=== PATIENT | male | born 1970 | race Caucasian/White ===

== ENCOUNTER 2021-04-12 16:56 | Inpatient (IN) ==
--- NOTE | 2021-04-12 17:50 | Emergency Department Note ---
Impression & Plan Bipolar 1 disorder, Depression with suicidal ideation ED Provider Note Provider: Felipe Luong MD DATE OF SERVICE: 04/12/2021 CHIEF COMPLAINT: Suicidal thoughts, bipolar HISTORY OF PRESENT ILLNESS: Patient is a 50-year-old gentleman history of some left knee arthritis is also history of bipolar presenting here with girlfriend today reporting worsening mental health issues. Patient states over the past several weeks he had several family members from Covid in [place] as well as being ill. Patient states it is very stressful for him and over the past approximately 5 days he has been having some thoughts of wanting to harm himself and kill himself. Reports that he is having thoughts of putting a garden hose in the tailpipe of his car and then getting in the car to fixate himself. Reports a history of 2 prior suicide attempt by slashing his wrists in the past. Prior inpatient hospitalizations in [place]. Reports he moved here about 2 years ago and has not had psychiatric providers in this area. Has been off his medication since July and doing okay until more recent stresses the last several weeks. States has not been sleeping well but did have some old Zyprexa at home the used to be on any type to help a little bit. Patient states he been arguing with others but not physically denying having thoughts of hurting others. Patient states he is willing for inpatient treatment and that is why he is here. Patient states he did have some old Zoloft 50 mg has been taking for the last several days and may be its helped with his anxiety a little bit. Patient states he is a daily cannabis user and chews tobacco. REVIEW OF SYSTEMS: A total of 10 review of systems was obtained and negative except as stated above in the HPI. 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 NECK: Trachea midline. Supple. ENT: Mucous membranes pink and moist. LUNGS: Airway patent. No retractions. Breath sounds clear HEART: Regular rate and rhythm. SKIN: Acyanotic, warm, dry, without rashes EXTREMITIES: Without swelling, tenderness or deformity NEUROLOGICAL: No focal deficits. No aphasia. No facial droop or slurred speech. Ambulatory. Psych: Reports depression and anxiety with suicidal ideations. Reports minimal sleep. Patient does not appear tangential at this time. Denies any HI but has been getting to fights with more people. Not responding to external stimuli. Flattened affect. Patient's laboratory studies reviewed. Differential includes Mood disorder, infection, hypoglycemia, electrolyte abnormalities, cardiac sources, intracerebral event, toxicologic, trauma, neurologic, as well as other pathologies. IMPRESSION/MEDICAL DECISION MAKING: Patient with depression anxiety and bipolar history now with thoughts of wanting to harm self through car monoxide poisoning. Basic labs completed here. Seen with case making machine operator. Patient wishes for voluntary inpatient treatment to believe is reasonable. No severe electrolyte abnormality or signs of lab abnormality beyond a mild nonspecific leukocytosis. Do not see any significant infectious source. Patient does appear meningitic. Patient I believe would benefit from inpatient treatment and referrals were made. Patient excepted 3 S. for further care on a voluntary basis. DIAGNOSIS: Depression with suicidal ideation, bipolar DISPOSITION: Further inpatient psychiatric care on 3 S. Past Med/Surg History Medical History (Updated 04/12/21 @ 22:25 by Felipe Luong M.D.) Anxiety Depression Other and unspecified hyperlipidemia Pre-diabetes Vitamin D deficiency, unspecified Surgical History S/P tonsillectomy Family History Denies family history of Ovarian cancer Prostate cancer Diabetes Myocardial infarction Breast cancer Colorectal cancer Cancer Stroke Social History Smoking Status: Current every day smoker Tobacco Type: Cigarettes Age Started Using Tobacco: 22; packs per day: 0.5; Cigarettes Per Day: 10; Second Hand Exposure: No; Hx Alcohol Use: No Hx Substance Use: No Preferred Language: Portuguese Communication Ability: Effective Visual Impairment: No Limitations Hearing Ability: Normal Beliefs That Will Affect Care: None marital status: Single current occupational status: employed 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 [employer] Feels Safe at Home: Yes Childhood Exposure to Second-Hand Smoke: Yes Dental Care, Regularly: No Physical Activity Frequency: Does not Exercise Seatbelt Use: always Assistive Devices: None Allergies Allergies Allergy/AdvReac Type Severity Reaction Status Date / Time No Known Allergies Allergy Verified 04/12/21 21:11 Home Meds Previous Rx's Medication Instructions Recorded buspirone 15 mg tablet 15 mg PO BID #180 tab 03/17/20 sertraline 100 mg tablet 100 mg PO DAILY #90 tab 03/17/20 aspirin 81 mg tablet,delayed 81 mg PO DAILY #90 tab 03/26/20 release coenzyme Q10 100 mg capsule 200 mg PO DAILY #180 cap 03/26/20 (CoQ-10) ergocalciferol (vitamin D2) 1,250 50,000 unit PO .weekly #12 cap 03/26/20 mcg (50,000 unit) capsule celecoxib 200 mg capsule 200 mg PO DAILY 90 Days #90 cap 04/17/20 diclofenac sodium 1 % topical gel 4 g TOPICAL QID #100 g 04/17/20 (Voltaren) levocetirizine 5 mg tablet (Xyzal) 5 mg PO DAILY #90 tab 04/17/20 lisinopril 5 mg tablet 5 mg PO .QHS #90 tab 04/17/20 lurasidone 40 mg tablet (Latuda) 40 mg PO DAILY #90 tab 04/17/20 prazosin 5 mg capsule (Minipress) 5 mg PO .QHS #90 cap 04/17/20 rosuvastatin 40 mg tablet (Crestor) 40 mg PO .QHS #90 tab 04/17/20 Results & Data (ED) Vital Signs Vital Signs - 24 hr 04/12/21 17:00 04/12/21 21:20 Temperature 36.2 C L Temperature Source Oral Pulse Rate 117 H Pulse Rate [Left] 70 Pulse Rhythm Regular Pulse Rhythm [Left] Regular Pulse Strength Normal Pulse Strength [Left] Normal Respiratory Rate 22 19 Respiratory Effort / Characteristics Non-Labored Respiratory Depth Normal Respiratory Pattern Regular Blood Pressure 138/93 Blood Pressure [Left Arm] 158/101 H Blood Pressure Mean 108 Blood Pressure Mean [Left Arm] 120 Blood Pressure Position Sitting Blood Pressure Position [Left Arm] Sitting Pulse Oximetry 94 96 Oxygen Delivery Method Room Air Room Air Sepsis Recent Fever Within 48 Hours No Sepsis New/Unexplained Change in Mental Status No Sepsis Action Taken by Nursing No Action Required Laboratory Data Result diagrams: 04/12/21 18:04 04/12/21 18:04 Lab Results 04/12/21 04/12/21 04/12/21 Range/Units 18:04 18:04 18:04 WBC 12.96 H (4.8-10.8) K/uL RBC 5.02 (4.7-6.1) M/uL Hgb 16.4 (14.0-18.0) g/dL Hct 46.8 (42-52) % MCV 93.2 (80-100) fL MCH 32.7 (25-34) pg MCHC 35.0 (32-36) g/dL RDW Std Deviation 46.5 H (36.4-46.3) fL RDW Coeff of [place] 13.7 (11.5-14.5) % Plt Count 309 (130-400) K/uL MPV 11.8 H (7.4-10.4) fL Immature Gran % (Auto) 0.2 % Neut % (Auto) 65.0 % Lymph % (Auto) 26.6 % [place] % (Auto) 6.7 % Eos % (Auto) 1.3 % Baso % (Auto) 0.2 % Neut # (Auto) 8.41 H (1.4-6.5) K/uL Lymph # (Auto) 3.45 H (1.2-3.4) K/uL [place] # (Auto) 0.87 H (0.11-0.59) K/uL Eos # (Auto) 0.17 (0-0.5) K/uL Baso # (Auto) 0.03 (0-0.2) K/uL Immature Gran # (Auto) 0.03 H (0.00-0.02) K/uL Sodium 137 (136-145) mmol/L Potassium 3.5 (3.5-5.1) mmol/L Chloride 106 (98-107) mmol/L Carbon Dioxide 24 (21-32) mmol/L Anion Gap 7.0 (3-11) BUN 8 (7-18) mg/dl Creatinine 0.82 (0.6-1.4) mg/dl Est Cr Clr Drug Dosing 153.2 ml/min Est GFR ( Amer) 121.2 ml/min Est GFR (Non-Af Amer) 104.6 ml/min BUN/Creatinine Ratio 9.7 L (10-20) Glucose 98 (70-99) mg/dl Calcium 9.2 (8.5-10.1) mg/dl Total Bilirubin 0.6 (0.2-1) mg/dl AST 30 (15-37) U/L ALT 92 H (12-78) U/L Alkaline Phosphatase 77 (45-117) U/L Total Protein 8.4 H (6.4-8.2) gm/dl Albumin 4.5 (3.4-5.0) gm/dl Globulin 3.9 (2.5-4.0) gm/dl Albumin/Globulin Ratio 1.2 (0.9-2) TSH 0.809 (0.300-4.500) uIu/ml Urine Color Urine Appearance (Clear) Urine pH (4.5-7.5) Ur Specific [place] (1.000-1.030) Urine Protein (Negative) Urine Glucose (UA) (Negative) Urine Ketones (Negative) Urine Blood (Negative) Urine Nitrite (Negative) Urine Bilirubin (Negative) Urine Urobilinogen (Negative) Ur Leukocyte Esterase (Negative) Salicylates 1.8 L (2.8-20) mg/dl Urine Opiates Screen (Neg) Ur Methadone, Qual (Neg) Acetaminophen < 2 L (10-30) ug/ml Urine Barbiturates (Neg) Ur Phencyclidine (PCP) (Neg) U Amphetamin/Meth Scrn (Neg) MDMA (Ecstasy) Screen (Neg) U Benzodiazepines Scrn (Neg) Ur Cocaine Metabolite (Neg) U Marijuana (THC) Screen (Neg) Ethyl Alcohol mg/dL (0-3) mg/dl COVID-19 Eval Order SARS-CoV-2 (PCR) (Negative) 04/12/21 04/12/21 04/12/21 Range/Units 18:04 18:12 18:12 WBC (4.8-10.8) K/uL RBC (4.7-6.1) M/uL Hgb (14.0-18.0) g/dL Hct (42-52) % MCV (80-100) fL MCH (25-34) pg MCHC (32-36) g/dL RDW Std Deviation (36.4-46.3) fL RDW Coeff of [place] (11.5-14.5) % Plt Count (130-400) K/uL MPV (7.4-10.4) fL Immature Gran % (Auto) % Neut % (Auto) % Lymph % (Auto) % [place] % (Auto) % Eos % (Auto) % Baso % (Auto) % Neut # (Auto) (1.4-6.5) K/uL Lymph # (Auto) (1.2-3.4) K/uL [place] # (Auto) (0.11-0.59) K/uL Eos # (Auto) (0-0.5) K/uL Baso # (Auto) (0-0.2) K/uL Immature Gran # (Auto) (0.00-0.02) K/uL Sodium (136-145) mmol/L Potassium (3.5-5.1) mmol/L Chloride (98-107) mmol/L Carbon Dioxide (21-32) mmol/L Anion Gap (3-11) BUN (7-18) mg/dl Creatinine (0.6-1.4) mg/dl Est Cr Clr Drug Dosing ml/min Est GFR ( Amer) ml/min Est GFR (Non-Af Amer) ml/min BUN/Creatinine Ratio (10-20) Glucose (70-99) mg/dl Calcium (8.5-10.1) mg/dl Total Bilirubin (0.2-1) mg/dl AST (15-37) U/L ALT (12-78) U/L Alkaline Phosphatase (45-117) U/L Total Protein (6.4-8.2) gm/dl Albumin (3.4-5.0) gm/dl Globulin (2.5-4.0) gm/dl Albumin/Globulin Ratio (0.9-2) TSH (0.300-4.500) uIu/ml Urine Color Urine Appearance (Clear) Urine pH (4.5-7.5) Ur Specific [place] (1.000-1.030) Urine Protein (Negative) Urine Glucose (UA) (Negative) Urine Ketones (Negative) Urine Blood (Negative) Urine Nitrite (Negative) Urine Bilirubin (Negative) Urine Urobilinogen (Negative) Ur Leukocyte Esterase (Negative) Salicylates (2.8-20) mg/dl Urine Opiates Screen (Neg) Ur Methadone, Qual (Neg) Acetaminophen (10-30) ug/ml Urine Barbiturates (Neg) Ur Phencyclidine (PCP) (Neg) U Amphetamin/Meth Scrn (Neg) MDMA (Ecstasy) Screen (Neg) U Benzodiazepines Scrn (Neg) Ur Cocaine Metabolite (Neg) U Marijuana (THC) Screen (Neg) Ethyl Alcohol mg/dL < 3.0 (0-3) mg/dl COVID-19 Eval Order Covid19 at [facility] SARS-CoV-2 (PCR) NEGATIVE (Negative) 04/12/21 04/12/21 Range/Units 19:29 19:29 WBC (4.8-10.8) K/uL RBC (4.7-6.1) M/uL Hgb (14.0-18.0) g/dL Hct (42-52) % MCV (80-100) fL MCH (25-34) pg MCHC (32-36) g/dL RDW Std Deviation (36.4-46.3) fL RDW Coeff of [place] (11.5-14.5) % Plt Count (130-400) K/uL MPV (7.4-10.4) fL Immature Gran % (Auto) % Neut % (Auto) % Lymph % (Auto) % [place] % (Auto) % Eos % (Auto) % Baso % (Auto) % Neut # (Auto) (1.4-6.5) K/uL Lymph # (Auto) (1.2-3.4) K/uL [place] # (Auto) (0.11-0.59) K/uL Eos # (Auto) (0-0.5) K/uL Baso # (Auto) (0-0.2) K/uL Immature Gran # (Auto) (0.00-0.02) K/uL Sodium (136-145) mmol/L Potassium (3.5-5.1) mmol/L Chloride (98-107) mmol/L Carbon Dioxide (21-32) mmol/L Anion Gap (3-11) BUN (7-18) mg/dl Creatinine (0.6-1.4) mg/dl Est Cr Clr Drug Dosing ml/min Est GFR ( Amer) ml/min Est GFR (Non-Af Amer) ml/min BUN/Creatinine Ratio (10-20) Glucose (70-99) mg/dl Calcium (8.5-10.1) mg/dl Total Bilirubin (0.2-1) mg/dl AST (15-37) U/L ALT (12-78) U/L Alkaline Phosphatase (45-117) U/L Total Protein (6.4-8.2) gm/dl Albumin (3.4-5.0) gm/dl Globulin (2.5-4.0) gm/dl Albumin/Globulin Ratio (0.9-2) TSH (0.300-4.500) uIu/ml Urine Color Yellow Urine Appearance Clear (Clear) Urine pH 6.0 (4.5-7.5) Ur Specific [place] 1.008 (1.000-1.030) Urine Protein Negative (Negative) Urine Glucose (UA) Negative (Negative) Urine Ketones Negative (Negative) Urine Blood Negative (Negative) Urine Nitrite Negative (Negative) Urine Bilirubin Negative (Negative) Urine Urobilinogen Negative (Negative) Ur Leukocyte Esterase Negative (Negative) Salicylates (2.8-20) mg/dl Urine Opiates Screen Neg (Neg) Ur Methadone, Qual Neg (Neg) Acetaminophen (10-30) ug/ml Urine Barbiturates Neg (Neg) Ur Phencyclidine (PCP) Neg (Neg) U Amphetamin/Meth Scrn Neg (Neg) MDMA (Ecstasy) Screen Neg (Neg) U Benzodiazepines Scrn Neg (Neg) Ur Cocaine Metabolite Neg (Neg) U Marijuana (THC) Screen Pos H (Neg) Ethyl Alcohol mg/dL (0-3) mg/dl COVID-19 Eval Order SARS-CoV-2 (PCR) (Negative) Administered Medications Acetaminophen (Acetaminophen 325 Mg Tab) 650 mg PO Q4H PRN PRN Reason: Headache or Minor Fever Stop: 05/12/21 21:48 Last Admin: 04/12/21 22:26 Dose: 650 mg Documented by: [id number] Nicotine (Nicotine 21 Mg/24 Hr Tdsy) 21 mg TD QAM DEONTE Stop: 05/12/21 17:59 Last Admin: 04/12/21 21:45 Dose: 21 mg Documented by: [id number] Discontinued Medications Diazepam (Diazepam 5 Mg Tablet) 5 mg PO NOW ONE Stop: 04/12/21 22:15 Last Admin: 04/12/21 22:33 Dose: 5 mg Documented by: [id number] Discharge Plan Visit Data Chief Complaint: Mental Health Evaluation Stated Complaint: SUICIDAL THOUGHTS ED Provider: Felipe Luong Discharge Problem: Bipolar 1 disorder, Depression with suicidal ideation Patient Disposition: Admitted As Inpatient Discharge Instructions Interventions: ED Discharge Assessment Last Done: 04/12/21 22:16
[2021-04-12 18:43] LABS: Basophils # (auto) 0.03 K/uL (0-0.2); Basophils % (auto) 0.2 %; Eosinophils # (auto) 0.17 K/uL (0-0.5); Eosinophils % (auto) 1.3 %; Hematocrit (blood only) 46.8 % (42-52); Hemoglobin 16.4 g/dL (14.0-18.0); Immature Granulocytes # (auto) 0.03 K/uL (0.00-0.02); Immature Granulocytes % (auto) 0.2 %; Lymphocytes # (auto) 3.45 K/uL (1.2-3.4); Lymphocytes % (auto) 26.6 %; Mean Corpuscular Hemoglobin 32.7 pg (25-34); Mean Corpuscular Volume 93.2 fL (80-100); Mean Platelet Volume 11.8 fL (7.4-10.4); Monocytes # (auto) 0.87 K/uL (0.11-0.59); Monocytes % (auto) 6.7 %; Neutrophils # (auto) 8.41 K/uL (1.4-6.5); Platelet Count 309 K/uL (130-400); RDW Coefficient of Variation 13.7 % (11.5-14.5); RDW Standard Deviation 46.5 fL (36.4-46.3); Red Blood Count 5.02 M/uL (4.7-6.1); White Blood Count 12.96 K/uL (4.8-10.8)
[2021-04-12 19:06] LABS: Albumin Level 4.5 gm/dl (3.4-5.0); BUN Creatinine Ratio 9.7 (10-20); Calcium 9.2 mg/dl (8.5-10.1); Creatinine Clr Calc Pharmacy 153.2 ml/min; Est GFR (African American) 121.2 ml/min; Est GFR (Non-African American) 104.6 ml/min; Potassium 3.5 mmol/L (3.5-5.1)
[2021-04-12 19:16] LABS: Albumin Globulin Ratio 1.2 (0.9-2); Bilirubin,Total 0.6 mg/dl (0.2-1); Globulin 3.9 gm/dl (2.5-4.0); Thyroid Stimulating Hormone 0.809 uIu/ml (0.300-4.500); Total Protein 8.4 gm/dl (6.4-8.2)
[2021-04-12 19:30] LABS: Acetaminophen < 2 ug/ml (10-30)
[2021-04-12 19:31] LABS: Salicylate 1.8 mg/dl (2.8-20)
[2021-04-12 20:04] LABS: Appearance Urine Clear (Clear); Bilirubin Urine Negative (Negative); Blood Urine Negative (Negative); Color Urine Yellow; Glucose Urine UA Negative (Negative); Ketones Urine Negative (Negative); Leukocyte Esterase Urine Negative (Negative); Nitrite Urine Negative (Negative); Protein Urine Negative (Negative); Specific Gravity Urine 1.008 (1.000-1.030); Urobilinogen Urine Negative (Negative)
[2021-04-12 20:27] LABS: Amphetamines+Metham, Urine Neg (Neg); Barbiturates, Urine Neg (Neg); Benzodiazepine, Urine Neg (Neg); Cocaine, Urine Neg (Neg); MDMA (Ecstacy), Urine Neg (Neg); Methadone, Urine Neg (Neg); Opiate, Urine Neg (Neg); Phencyclidine, Urine Neg (Neg)
[2021-04-12] MEDS: NICOTINE 21 MG/24 HR TDSY TD SCH (21:45)
[2021-04-12] MEDS ORDERED: hydrOXYzine HCl 25 MG TAB PO PRN (21:49)
[2021-04-12] MEDS ORDERED: SODIUM CHLORIDE 0.65% NA SOLN 45 ML (OCEAN) PRN (21:49)
[2021-04-12] MEDS ORDERED: ALUMINUM/MAGNESIUM SUSP 30 ML UDC PO PRN (21:49)
[2021-04-12] MEDS ORDERED: ACETAMINOPHEN 325 MG TAB PO PRN (21:49)
[2021-04-12] MEDS ORDERED: BISMUTH SUBSALICYLATE LIQD 236 ML PO PRN (21:49)
[2021-04-12] MEDS ORDERED: MAGNESIUM HYDROXIDE SUSP 30 ML UDC PO PRN (21:49)
[2021-04-12] MEDS ORDERED: diazePAM 5 MG TABLET PO ONE (22:14)
[2021-04-12] MEDS ORDERED: NICOTINE POLACRILEX 2 MG GUM MT PRN (22:15)
[2021-04-13] MEDS: NICOTINE 21 MG/24 HR TDSY TD SCH (09:40)
[2021-04-13] MEDS: LURASIDONE HCL 40 MG TAB PO SCH (13:28)
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
[2021-04-13] MEDS: clonazePAM 0.5 MG TAB PO PRN (17:10)
[2021-04-13] MEDS: PRAZOSIN HCL 1 MG CAP PO SCH (20:25)
[2021-04-13] MEDS: hydrOXYzine HCl 25 MG TAB PO PRN (21:48)
[2021-04-14] MEDS: clonazePAM 0.5 MG TAB PO PRN (07:42)
[2021-04-14] MEDS: NICOTINE 21 MG/24 HR TDSY TD SCH (08:49)
[2021-04-14] MEDS ORDERED: LORazepam 1 MG TAB PO STA (08:58)
[2021-04-14] MEDS ORDERED: traMADol HCL 50 MG TABLET PO STA (09:26)
--- NOTE | 2021-04-14 14:53 | Psychiatric Progress Note ---
Date of Service April 14, 2021 Impression / Recommendations Impression This is a 50-year-old male with diagnosis of bipolar disorder and PTSD who presents in what is likely a mixed manic state due to social stressors and medication noncompliance. Patient will benefit from inpatient hospitalization for purposes of safety, stabilization, and medication management. (1) Bipolar 1 disorder: The patient was admitted to the [facility] ([facility] mental health unit) on every 15 minute checks (behavioral with suicide precautions for safety. The patient will participate in group, recreational, and milieu therapies and will be offered additional individual and family sessions as clinically appropriate. 04/13/2021we will restart patient on medications which have worked for him in the past. We will start Latuda 40 mg p.o. every morning, prazosin 1 mg nightly, clonazepam 1 mg as needed anxiety 3 times daily. With plans to start Zoloft in the coming days 04/14/2021we will continue with the current medications for now, patient still getting acclimated to the unit and continues to have a difficult time falling asleep. 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 Review of Systems Sleep Information Total Hours of Sleep: 6.5 Meal Information Percent Meal Consumed - Breakfast: 100 Percent Meal Consumed - Lunch: 100 Percent Meal Consumed - Dinner: 50 Subjective Subjective Patient was seen & assessed and interval progress reviewed with treatment team nursing and social work Patient became agitated this morning due to having interrupted sleep last night in which she was unable to fall back asleep. Due to his level of agitation, staff requested patient receive a stat dose of medication to help him calm down and potentially fall back to sleep. Patient was administered a stat dose of lorazepam to good effect and was resting in his room for the remainder of the day. I spent 30 minutes with the patient, 50% of which was dedicated to counselling and coordination of care. Physical Exam Psychiatric Orientation: alert and oriented x 3 Apperance: appropriately dressed Eye Contact: good eye contact Motor Behavior: no abnormal motor movements Affect: + depressed affect, + anxious affect, + labile affect and mood congruent with affect Mood: + depressed mood and + anxious mood Thought Process: goal directed thought process and + concrete thought process Thought Content: reality based without delusions, + hopelessness, + worthlessness and + self deprecation Suicidal Thoughts: + reports suicidal thoughts Homicidal Thoughts: denies homicidal thoughts Hallucinations: no auditory hallucinations and no visual hallucinations Cognition: attention grossly intact Estimated Intelligence: average estimated intelligence Insight: + fair insight Judgement: + poor judgement Vital Signs (Past 24 Hours) Last Vital Signs Temp 36.4 C L 04/14/21 06:51 Pulse 98 H 04/14/21 06:51 Resp 18 04/14/21 06:51 BP 135/90 04/14/21 06:51 Pulse Ox 98 04/12/21 22:37 Results & Data ([facility]) Current Inpatient Medications Current Inpatient Medications: Current Inpatient Medications Acetaminophen (Acetaminophen 325 Mg Tab) 650 mg PO Q4H PRN PRN Reason: Headache or Minor Fever Stop: 05/12/21 21:48 Last Admin: 04/12/21 22:26 Dose: 650 mg Documented by: Al Hydrox/Mg Hydrox/Simethicone (Aluminum/Magnesium Susp 30 Ml Udc) 30 ml PO Q4H PRN PRN Reason: GI Upset Stop: 05/12/21 21:48 Bismuth Subsalicylate (Bismuth Subsalicylate Liqd 236 Ml) 15 ml PO PRN PRN PRN Reason: Loose Stool Stop: 05/12/21 21:48 Hydroxyzine HCl (Hydroxyzine Hcl 25 Mg Tab) 50 mg PO HSZ PRN PRN Reason: Insomnia Stop: 05/12/21 21:48 Last Admin: 04/13/21 21:48 Dose: 50 mg Documented by: Hydroxyzine HCl (Hydroxyzine Hcl 25 Mg Tab) 25 mg PO Q4H PRN PRN Reason: Anxiety Stop: 05/12/21 21:48 Lurasidone HCl (Lurasidone Hcl 40 Mg Tab) 40 mg PO DAILY [facility] Stop: 05/13/21 11:44 Last Admin: 04/13/21 13:28 Dose: 40 mg Documented by: Magnesium Hydroxide (Magnesium Hydroxide Susp 30 Ml Udc) 30 ml PO DAILY PRN PRN Reason: Constipation Stop: 05/12/21 21:48 Miscellaneous (Remove Nicoderm Patch) 1 ea N/A DAILY@0859 [facility] Stop: 05/13/21 08:58 Last Admin: 04/14/21 08:50 Dose: Not Given Documented by: Nicotine (Nicotine 21 Mg/24 Hr Tdsy) 21 mg TD QAM [facility] Stop: 05/12/21 17:59 Last Admin: 04/14/21 08:49 Dose: 21 mg Documented by: Nicotine Polacrilex (Nicotine Polacrilex 2 Mg Gum) 1 piece MT PRN PRN PRN Reason: Tobacco craving Stop: 05/12/21 22:14 Prazosin HCl (Prazosin Hcl 1 Mg Cap) 1 mg PO HS DEONTE Stop: 05/13/21 21:59 Last Admin: 04/13/21 20:25 Dose: 1 mg Documented by: Sodium Chloride (Sodium Chloride 0.65% Na Soln 45 Ml ([place])) 1 - 2 sprays NA PRN PRN PRN Reason: Nasal Dryness/Congestion Stop: 05/12/21 21:48 Mental Health & Subst Abuse Tx Therapist Name of Therapist: None [employer] Name of [employer] Internship: None Post Discharge Appointments Primary Care Physician Name Of Family Doctor: [facility] Date of Appointment with PCP: 04/24/21 Time of Appointment with PCP: 10:15 a.m. Provider Appointment Comment: [address] [facility] Contact Information Discharge Discharge Address: [address] [place] [address], [place] [id number]
[2021-04-14] MEDS: LURASIDONE HCL 40 MG TAB PO SCH (16:13)
[2021-04-14] MEDS: PRAZOSIN HCL 1 MG CAP PO SCH (21:25)
[2021-04-14] MEDS: clonazePAM 1 MG TAB PO PRN (23:03)
[2021-04-15] MEDS: NICOTINE 21 MG/24 HR TDSY TD SCH (08:12)
[2021-04-15] MEDS: clonazePAM 1 MG TAB PO PRN (09:47)
[2021-04-15] MEDS: LURASIDONE HCL 40 MG TAB PO SCH (09:48)
[2021-04-15] MEDS: NICOTINE POLACRILEX 2 MG GUM MT PRN ×2 (09:52→17:39)
[2021-04-15] MEDS: traMADol HCL 50 MG TABLET PO PRN ×2 (09:53→17:39)
[2021-04-15 10:07] LABS: Marijuana Quant, GCMS Urine 1250 ng/mL (<5)
--- NOTE | 2021-04-15 11:04 | Psychiatric Progress Note ---
Date of Service April 15, 2021 Impression / Recommendations Impression This is a 50-year-old male with diagnosis of bipolar disorder and PTSD who presents in what is likely a mixed manic state due to social stressors and medication noncompliance. Patient will benefit from inpatient hospitalization for purposes of safety, stabilization, and medication management. (1) Bipolar 1 disorder: The patient was admitted to the [facility] ([facility] mental health unit) on every 15 minute checks (behavioral with suicide precautions for safety. The patient will participate in group, recreational, and milieu therapies and will be offered additional individual and family sessions as clinically appropriate. 04/13/2021we will restart patient on medications which have worked for him in the past. We will start Latuda 40 mg p.o. every morning, prazosin 1 mg nightly, clonazepam 1 mg as needed anxiety 3 times daily. With plans to start Zoloft in the coming days 04/14/2021we will continue with the current medications for now, patient still getting acclimated to the unit and continues to have a difficult time falling asleep. 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 Review of Systems Sleep Information Total Hours of Sleep: 6 Meal Information Percent Meal Consumed - Breakfast: 100 Percent Meal Consumed - Lunch: 0 Percent Meal Consumed - Dinner: 100 Nutrition Comment: sleeping Subjective Subjective Patient seen, chart reviewed and case discussed with treatment team, nursing and social work. Patient reports a good night of sleep and strong appetite. No side effects reported or observed. Reports mood has improved after some rest. Regarding mood, patient reports some improvement which they attribute to the medications as well as the therapy they have received on the unit. Today, patient rescinded his 72 hour letter and agreed to stay longer, in line with the recommendations of unit staff and song writer. I spent 30 minutes with the patient, 50% of which was dedicated to counselling and coordination of care. Physical Exam Psychiatric Orientation: alert and oriented x 3 Apperance: appropriately dressed Eye Contact: good eye contact Motor Behavior: no abnormal motor movements Affect: + depressed affect, + anxious affect, + labile affect and mood congruent with affect Mood: + depressed mood and + anxious mood Thought Process: goal directed thought process and + concrete thought process Thought Content: reality based without delusions, + hopelessness, + worthlessness and + self deprecation Suicidal Thoughts: + reports suicidal thoughts Homicidal Thoughts: denies homicidal thoughts Hallucinations: no auditory hallucinations and no visual hallucinations Cognition: attention grossly intact Estimated Intelligence: average estimated intelligence Insight: + fair insight Judgement: + poor judgement Vital Signs (Past 24 Hours) Last Vital Signs Temp 36.6 C 04/15/21 06:31 Pulse 98 H 04/15/21 06:32 Resp 16 04/15/21 06:31 BP 120/81 04/15/21 06:32 Pulse Ox 98 04/12/21 22:37 Results & Data ([facility]) Laboratory Results Laboratory Results - last 24 hr 04/12/21 19:29 U Marijuana THC Carboxy 1250 H Drug Screen Comment SEE NOTE Current Inpatient Medications Current Inpatient Medications: Current Inpatient Medications Acetaminophen (Acetaminophen 325 Mg Tab) 650 mg PO Q4H PRN PRN Reason: Headache or Minor Fever Stop: 05/12/21 21:48 Last Admin: 04/12/21 22:26 Dose: 650 mg Documented by: Al Hydrox/Mg Hydrox/Simethicone (Aluminum/Magnesium Susp 30 Ml Udc) 30 ml PO Q4H PRN PRN Reason: GI Upset Stop: 05/12/21 21:48 Bismuth Subsalicylate (Bismuth Subsalicylate Liqd 236 Ml) 15 ml PO PRN PRN PRN Reason: Loose Stool Stop: 05/12/21 21:48 Clonazepam (Clonazepam 1 Mg Tab) 1 mg PO Q8H PRN PRN Reason: Anxiety Stop: 05/13/21 11:43 Last Admin: 04/15/21 09:47 Dose: 1 mg Documented by: Hydroxyzine HCl (Hydroxyzine Hcl 25 Mg Tab) 50 mg PO HSZ PRN PRN Reason: Insomnia Stop: 05/12/21 21:48 Last Admin: 04/13/21 21:48 Dose: 50 mg Documented by: Hydroxyzine HCl (Hydroxyzine Hcl 25 Mg Tab) 25 mg PO Q4H PRN PRN Reason: Anxiety Stop: 05/12/21 21:48 Lurasidone HCl (Lurasidone Hcl 40 Mg Tab) 40 mg PO DAILY DEONTE Stop: 05/13/21 11:44 Last Admin: 04/15/21 09:48 Dose: 40 mg Documented by: Magnesium Hydroxide (Magnesium Hydroxide Susp 30 Ml Udc) 30 ml PO DAILY PRN PRN Reason: Constipation Stop: 05/12/21 21:48 Miscellaneous (Remove Nicoderm Patch) 1 ea N/A DAILY@0859 [facility] Stop: 05/13/21 08:58 Last Admin: 04/15/21 09:59 Dose: 1 ea Documented by: Nicotine (Nicotine 21 Mg/24 Hr Tdsy) 21 mg TD QAM DEONTE Stop: 05/12/21 17:59 Last Admin: 04/15/21 08:12 Dose: 21 mg Documented by: Nicotine Polacrilex (Nicotine Polacrilex 2 Mg Gum) 1 piece MT Q2HWA PRN PRN Reason: cravings Stop: 05/15/21 08:34 Last Admin: 04/15/21 09:52 Dose: 1 piece Documented by: Prazosin HCl (Prazosin Hcl 1 Mg Cap) 1 mg PO HS DEONTE Stop: 05/13/21 21:59 Last Admin: 04/14/21 21:25 Dose: 1 mg Documented by: Sodium Chloride (Sodium Chloride 0.65% Na Soln 45 Ml ([place])) 1 - 2 sprays NA PRN PRN PRN Reason: Nasal Dryness/Congestion Stop: 05/12/21 21:48 Tramadol HCl (Tramadol Hcl 50 Mg Tablet) 50 mg PO BID PRN PRN Reason: Pain Stop: 05/14/21 17:04 Last Admin: 04/15/21 09:53 Dose: 50 mg Documented by: Mental Health & Subst Abuse Tx Therapist Name of Therapist: None Service Desk Analyst Name of Service Desk Analyst: None Post Discharge Appointments Primary Care Physician Name Of Family Doctor: ENOCH Gunn Primary Care Date of Appointment with PCP: 04/24/21 Time of Appointment with PCP: 10:15 a.m. Provider Appointment Comment: [address] [facility] Contact Information Discharge Discharge Address: [address] [place] [address]
[2021-04-15] MEDS: PRAZOSIN HCL 1 MG CAP PO SCH (21:10)
[2021-04-15] MEDS: hydrOXYzine HCl 25 MG TAB PO PRN (23:06)
[2021-04-16] MEDS: NICOTINE 21 MG/24 HR TDSY TD SCH (08:57)
[2021-04-16] MEDS: LURASIDONE HCL 40 MG TAB PO SCH (09:43)
[2021-04-16] MEDS: SERTRALINE HCL 50 MG TABLET PO SCH (09:43)
[2021-04-16] MEDS: traMADol HCL 50 MG TABLET PO PRN (11:21)
--- NOTE | 2021-04-16 14:38 | Psychiatric Progress Note ---
Date of Service April 16, 2021 Impression / Recommendations Impression This is a 50-year-old male with diagnosis of bipolar disorder and PTSD who presents in what is likely a mixed manic state due to social stressors and medication noncompliance. Patient will benefit from inpatient hospitalization for purposes of safety, stabilization, and medication management. (1) Bipolar 1 disorder: The patient was admitted to the [facility] ([facility] health unit) on every 15 minute checks (behavioral with suicide precautions for safety. The patient will participate in group, recreational, and milieu therapies and will be offered additional individual and family sessions as clinically appropriate. 04/13/2021we will restart patient on medications which have worked for him in the past. We will start Latuda 40 mg p.o. every morning, prazosin 1 mg nightly, clonazepam 1 mg as needed anxiety 3 times daily. With plans to start Zoloft in the coming days 04/14/2021we will continue with the current medications for now, patient still getting acclimated to the unit and continues to have a difficult time falling asleep. 04/15/2021-- We will increase the Latuda to 60mg PO qam, will start Zoloft 50mg po qam, continue Clonazepam 1mg TID PRN anxiety 04/16/2021ontinue with Latuda 60 p.o. every morning, Zoloft 50 p.o. every morning, clonazepam 1 mg 3 times daily as needed, prazosin 2 mg nightly. 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 Review of Systems Sleep Information Total Hours of Sleep: 6.75 Meal Information Percent Meal Consumed - Breakfast: 100 Percent Meal Consumed - Lunch: 100 Percent Meal Consumed - Dinner: 100 Nutrition Comment: sleeping Subjective Subjective Patient seen, chart reviewed and case discussed with treatment team, nursing and social work. Patient reports a good night of sleep and strong appetite. No side effects reported or observed. Reports feeling fine on the Latuda and Zoloft Regarding mood, patient reports some improvement which they attribute to the medications as well as the therapy they have received on the unit. He attends groups and engages appropriately. Seen speaking to peers without issue. I spent 30 minutes with the patient, 50% of which was dedicated to counselling and coordination of care.n Physical Exam Psychiatric Orientation: alert and oriented x 3 Apperance: appropriately dressed Eye Contact: good eye contact Motor Behavior: no abnormal motor movements Affect: + depressed affect, + anxious affect, + labile affect and mood congruent with affect Mood: + depressed mood and + anxious mood Thought Process: goal directed thought process and + concrete thought process Thought Content: reality based without delusions, + hopelessness, + worthlessness and + self deprecation Suicidal Thoughts: + reports suicidal thoughts Homicidal Thoughts: denies homicidal thoughts Hallucinations: no auditory hallucinations and no visual hallucinations Cognition: attention grossly intact Estimated Intelligence: average estimated intelligence Insight: + fair insight Judgement: + poor judgement Vital Signs (Past 24 Hours) Last Vital Signs Temp 36.0 C L 04/15/21 20:03 Pulse 98 H 04/15/21 06:32 Resp 16 04/15/21 06:31 BP 120/81 04/15/21 06:32 Pulse Ox 98 04/12/21 22:37 Results & Data ([facility]) Current Inpatient Medications Current Inpatient Medications: Current Inpatient Medications Acetaminophen (Acetaminophen 325 Mg Tab) 650 mg PO Q4H PRN PRN Reason: Headache or Minor Fever Stop: 05/12/21 21:48 Last Admin: 04/12/21 22:26 Dose: 650 mg Documented by: Al Hydrox/Mg Hydrox/Simethicone (Aluminum/Magnesium Susp 30 Ml Udc) 30 ml PO Q4H PRN PRN Reason: GI Upset Stop: 05/12/21 21:48 Bismuth Subsalicylate (Bismuth Subsalicylate Liqd 236 Ml) 15 ml PO PRN PRN PRN Reason: Loose Stool Stop: 05/12/21 21:48 Clonazepam (Clonazepam 1 Mg Tab) 1 mg PO Q8H PRN PRN Reason: Anxiety Stop: 05/13/21 11:43 Last Admin: 04/15/21 09:47 Dose: 1 mg Documented by: Hydroxyzine HCl (Hydroxyzine Hcl 25 Mg Tab) 50 mg PO HSZ PRN PRN Reason: Insomnia Stop: 05/12/21 21:48 Last Admin: 04/15/21 23:06 Dose: 50 mg Documented by: Hydroxyzine HCl (Hydroxyzine Hcl 25 Mg Tab) 25 mg PO Q4H PRN PRN Reason: Anxiety Stop: 05/12/21 21:48 Lurasidone HCl (Lurasidone Hcl 40 Mg Tab) 60 mg PO DAILY DEONTE Stop: 05/16/21 08:59 Last Admin: 04/16/21 09:43 Dose: 60 mg Documented by: Magnesium Hydroxide (Magnesium Hydroxide Susp 30 Ml Udc) 30 ml PO DAILY PRN PRN Reason: Constipation Stop: 05/12/21 21:48 Miscellaneous (Remove Nicoderm Patch) 1 ea N/A DAILY@0859 [facility] Stop: 05/13/21 08:58 Last Admin: 04/16/21 08:57 Dose: 1 ea Documented by: Nicotine (Nicotine 21 Mg/24 Hr Tdsy) 21 mg TD QAM DEONTE Stop: 05/12/21 17:59 Last Admin: 04/16/21 08:57 Dose: 21 mg Documented by: Nicotine Polacrilex (Nicotine Polacrilex 2 Mg Gum) 1 piece MT Q2HWA PRN PRN Reason: cravings Stop: 05/15/21 08:34 Last Admin: 04/15/21 17:39 Dose: 1 piece Documented by: Prazosin HCl (Prazosin Hcl 1 Mg Cap) 2 mg PO HS DEONTE Stop: 05/15/21 21:59 Last Admin: 04/15/21 21:10 Dose: 2 mg Documented by: Sertraline HCl (Sertraline Hcl 50 Mg Tablet) 50 mg PO QAM DEONTE Stop: 05/16/21 08:59 Last Admin: 04/16/21 09:43 Dose: 50 mg Documented by: Sodium Chloride (Sodium Chloride 0.65% Na Soln 45 Ml ([place])) 1 - 2 sprays NA PRN PRN PRN Reason: Nasal Dryness/Congestion Stop: 05/12/21 21:48 Tramadol HCl (Tramadol Hcl 50 Mg Tablet) 50 mg PO BID PRN PRN Reason: Pain Stop: 05/14/21 17:04 Last Admin: 04/16/21 11:21 Dose: 50 mg Documented by: Mental Health & Subst Abuse Tx Psychiatrist Name of Psychiatrist: Jill Alberto Psychiatrist's Time of Appointment with Psychiatrist: Will refer you after your initial intake Psychiatric Appointment Comment: [address] [facility], [address], [place] Therapist Name of Therapist: Jill Kearns Therapist's Date of Therapist Appointment: 04/25/21 Time of Therapist Appointment: 11:30 a.m. Therapy Appointment Comment: [address] [facility], [place] Dairy Department Manager Name of Dairy Department Manager: . Post Discharge Appointments Primary Care Physician Name Of Family Doctor: ENOCH Gunn Primary Care Date of Appointment with PCP: 04/24/21 Time of Appointment with PCP: 10:15 a.m. Provider Appointment Comment: [address] [facility] Contact Information Discharge Discharge Address: [address] [place] [address], [place] [address]
[2021-04-16] MEDS: NICOTINE POLACRILEX 2 MG GUM MT PRN ×2 (16:57→19:50)
[2021-04-16] MEDS: PRAZOSIN HCL 1 MG CAP PO SCH (21:37)
[2021-04-16] MEDS: hydrOXYzine HCl 25 MG TAB PO PRN (21:39)
[2021-04-17] MEDS: NICOTINE 21 MG/24 HR TDSY TD SCH (08:16)
[2021-04-17] MEDS: clonazePAM 1 MG TAB PO PRN (08:53)
[2021-04-17] MEDS: LURASIDONE HCL 40 MG TAB PO SCH (09:49)
[2021-04-17] MEDS: SERTRALINE HCL 50 MG TABLET PO SCH (09:50)
--- NOTE | 2021-04-17 11:10 | Psychiatric Progress Note ---
Date of Service April 17, 2021 Impression / Recommendations Impression This is a 50-year-old male with diagnosis of bipolar disorder and PTSD who presents in what is likely a mixed manic state due to social stressors and medication noncompliance. Patient will benefit from inpatient hospitalization for purposes of safety, stabilization, and medication management. (1) Bipolar 1 disorder: The patient was admitted to the [facility] ([facility] health unit) on every 15 minute checks (behavioral with suicide precautions for safety. The patient will participate in group, recreational, and milieu therapies and will be offered additional individual and family sessions as clinically appropriate. 04/13/2021we will restart patient on medications which have worked for him in the past. We will start Latuda 40 mg p.o. every morning, prazosin 1 mg nightly, clonazepam 1 mg as needed anxiety 3 times daily. With plans to start Zoloft in the coming days 04/14/2021we will continue with the current medications for now, patient still getting acclimated to the unit and continues to have a difficult time falling asleep. 04/15/2021-- We will increase the Latuda to 60mg PO qam, will start Zoloft 50mg po qam, continue Clonazepam 1mg TID PRN anxiety 04/16/2021ontinue with Latuda 60 p.o. every morning, Zoloft 50 p.o. every morning, clonazepam 1 mg 3 times daily as needed, prazosin 2 mg nightly. 04/17/2021we will continue with the current regimen for now. 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 Chief Complaint "I got mad this morning even though I should not have". Review of Systems Sleep Information Total Hours of Sleep: 7 Meal Information Percent Meal Consumed - Breakfast: 100 Percent Meal Consumed - Lunch: 100 Percent Meal Consumed - Dinner: 100 Nutrition Comment: sleeping Subjective Subjective Patient was seen & assessed and interval progress reviewed with treatment team nursing and social work Patient did have a difficult time this morning after watching the news. He stated that the news set off some bad thoughts in his head. Patient states the news was related to the election results, vaccines. He states that these political thoughts sometimes run wild in his mind. He was given a as needed dosage of clonazepam to good effect. Patient also reported being upset about the quantity of food on his breakfast tray. He was given more food to take his Latuda medication with. Patient has been compliant with medications and is participating in group meaningfully. He does still report being "on edge" at times during the day, but states that he uses his coping mechanisms in order to better deal with his mood. Eating and sleeping okay. I spent 30 minutes with the patient, 50% of which was dedicated to counselling and coordination of care. Physical Exam Psychiatric Orientation: alert and oriented x 3 Apperance: appropriately dressed Eye Contact: good eye contact Motor Behavior: no abnormal motor movements Affect: + depressed affect, + anxious affect, + labile affect and mood congruent with affect Mood: + depressed mood and + anxious mood Thought Process: goal directed thought process and + concrete thought process Thought Content: reality based without delusions, + hopelessness, + worthlessness and + self deprecation Suicidal Thoughts: + reports suicidal thoughts Homicidal Thoughts: denies homicidal thoughts Hallucinations: no auditory hallucinations and no visual hallucinations Cognition: attention grossly intact Estimated Intelligence: average estimated intelligence Insight: + fair insight Judgement: + poor judgement Vital Signs (Past 24 Hours) Last Vital Signs Temp 36.6 C 04/17/21 06:39 Pulse 105 H 04/17/21 06:39 Resp 14 04/17/21 06:39 BP 128/94 04/17/21 06:39 Pulse Ox 98 04/12/21 22:37 Results & Data ([facility]) Current Inpatient Medications Current Inpatient Medications: Current Inpatient Medications Acetaminophen (Acetaminophen 325 Mg Tab) 650 mg PO Q4H PRN PRN Reason: Headache or Minor Fever Stop: 05/12/21 21:48 Last Admin: 04/12/21 22:26 Dose: 650 mg Documented by: Al Hydrox/Mg Hydrox/Simethicone (Aluminum/Magnesium Susp 30 Ml Udc) 30 ml PO Q4H PRN PRN Reason: GI Upset Stop: 05/12/21 21:48 Bismuth Subsalicylate (Bismuth Subsalicylate Liqd 236 Ml) 15 ml PO PRN PRN PRN Reason: Loose Stool Stop: 05/12/21 21:48 Clonazepam (Clonazepam 1 Mg Tab) 1 mg PO Q8H PRN PRN Reason: Anxiety Stop: 05/13/21 11:43 Last Admin: 04/17/21 08:53 Dose: 1 mg Documented by: Hydroxyzine HCl (Hydroxyzine Hcl 25 Mg Tab) 50 mg PO HSZ PRN PRN Reason: Insomnia Stop: 05/12/21 21:48 Last Admin: 04/16/21 21:39 Dose: 50 mg Documented by: Hydroxyzine HCl (Hydroxyzine Hcl 25 Mg Tab) 25 mg PO Q4H PRN PRN Reason: Anxiety Stop: 05/12/21 21:48 Lurasidone HCl (Lurasidone Hcl 40 Mg Tab) 60 mg PO DAILY DEONTE Stop: 05/16/21 08:59 Last Admin: 04/17/21 09:49 Dose: 60 mg Documented by: Magnesium Hydroxide (Magnesium Hydroxide Susp 30 Ml Udc) 30 ml PO DAILY PRN PRN Reason: Constipation Stop: 05/12/21 21:48 Miscellaneous (Remove Nicoderm Patch) 1 ea N/A DAILY@0859 DEONTE Stop: 05/13/21 08:58 Last Admin: 04/17/21 08:19 Dose: 1 ea Documented by: Nicotine (Nicotine 21 Mg/24 Hr Tdsy) 21 mg TD QAM DEONTE Stop: 05/12/21 17:59 Last Admin: 04/17/21 08:16 Dose: 21 mg Documented by: Nicotine Polacrilex (Nicotine Polacrilex 2 Mg Gum) 1 piece MT Q2HWA PRN PRN Reason: cravings Stop: 05/15/21 08:34 Last Admin: 04/16/21 19:50 Dose: 1 piece Documented by: Prazosin HCl (Prazosin Hcl 1 Mg Cap) 2 mg PO HS DEONTE Stop: 05/15/21 21:59 Last Admin: 04/16/21 21:37 Dose: 2 mg Documented by: Sertraline HCl (Sertraline Hcl 50 Mg Tablet) 50 mg PO QAM DEONTE Stop: 05/16/21 08:59 Last Admin: 04/17/21 09:50 Dose: 50 mg Documented by: Sodium Chloride (Sodium Chloride 0.65% Na Soln 45 Ml ([place])) 1 - 2 sprays NA PRN PRN PRN Reason: Nasal Dryness/Congestion Stop: 05/12/21 21:48 Tramadol HCl (Tramadol Hcl 50 Mg Tablet) 50 mg PO BID PRN PRN Reason: Pain Stop: 05/14/21 17:04 Last Admin: 04/16/21 11:21 Dose: 50 mg Documented by: Mental Health & Subst Abuse Tx Psychiatrist Name of Psychiatrist: Jill Alberto Psychiatrist's Time of Appointment with Psychiatrist: Will refer you after your initial intake Psychiatric Appointment Comment: [address] [facility], [place] [address], [place] Therapist Name of Therapist: Jill Kearns Therapist's Date of Therapist Appointment: 04/25/21 Time of Therapist Appointment: 11:30 a.m. Therapy Appointment Comment: [address] [facility], [place] [address], [place] Fabric Machine Operator Name of Fabric Machine Operator: . Post Discharge Appointments Primary Care Physician Name Of Family Doctor: ENOCH Gunn Primary Care Date of Appointment with PCP: 04/24/21 Time of Appointment with PCP: 10:15 a.m. Provider Appointment Comment: [address] [facility] Contact Information Discharge Discharge Address: [address] [place] [address], [place] [address]
[2021-04-17] MEDS ORDERED: clonazePAM 1 MG TAB PO PRN (11:39)
[2021-04-17] MEDS: NICOTINE POLACRILEX 2 MG GUM MT PRN (17:50)
[2021-04-17] MEDS: PRAZOSIN HCL 1 MG CAP PO SCH (21:45)
[2021-04-18] MEDS: traMADol HCL 50 MG TABLET PO PRN ×2 (07:32→20:42)
[2021-04-18] MEDS: LURASIDONE HCL 40 MG TAB PO SCH (09:02)
[2021-04-18] MEDS: NICOTINE 21 MG/24 HR TDSY TD SCH (09:03)
[2021-04-18] MEDS: SERTRALINE HCL 50 MG TABLET PO SCH (09:04)
--- NOTE | 2021-04-18 11:40 | Psychiatric Progress Note ---
Date of Service April 18, 2021 Impression / Recommendations Impression This is a 50-year-old male with diagnosis of bipolar disorder and PTSD who presents in what is likely a mixed manic state due to social stressors and medication noncompliance. Patient will benefit from inpatient hospitalization for purposes of safety, stabilization, and medication management. (1) Bipolar 1 disorder: The patient was admitted to the [facility] ([facility]) on every 15 minute checks (behavioral with suicide precautions for safety. The patient will participate in group, recreational, and milieu therapies and will be offered additional individual and family sessions as clinically appropriate. 04/13/2021we will restart patient on medications which have worked for him in the past. We will start Latuda 40 mg p.o. every morning, prazosin 1 mg nightly, clonazepam 1 mg as needed anxiety 3 times daily. With plans to start Zoloft in the coming days 04/14/2021we will continue with the current medications for now, patient still getting acclimated to the unit and continues to have a difficult time falling asleep. 04/15/2021-- We will increase the Latuda to 60mg PO qam, will start Zoloft 50mg po qam, continue Clonazepam 1mg TID PRN anxiety 04/16/2021ontinue with Latuda 60 p.o. every morning, Zoloft 50 p.o. every morning, clonazepam 1 mg 3 times daily as needed, prazosin 2 mg nightly. 04/17/2021we will continue with the current regimen for now. 04/18/2021atient continues to do well on the current regimen. Many of his symptoms seem to have resolved. We will start discharge planning. 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 Chief Complaint "". Review of Systems Sleep Information Total Hours of Sleep: 6 Sleep Comments: pt on q-15 minute checks Meal Information Percent Meal Consumed - Breakfast: 100 Percent Meal Consumed - Lunch: 100 Percent Meal Consumed - Dinner: 70 Nutrition Comment: sleeping Subjective Subjective Patient seen, chart reviewed and case discussed with treatment team, nursing and social work. Patient reports a good night of sleep and good appetite. No side effects reported or observed. Regarding mood, patient reports some improvement which they attribute to the medications as well as the therapy they have received on the unit. Patient continues to do well on his current medication regimen. Denies any episodes of aggression or anger overnight. Reports that he feels the medications are working and helping him feel more stable. He is interacting with groups and his peers appropriately. I spent 30 minutes with the patient, 50% of which was dedicated to counselling and coordination of care. Physical Exam Psychiatric Orientation: alert and oriented x 3 Apperance: appropriately dressed Eye Contact: good eye contact Motor Behavior: no abnormal motor movements Affect: + depressed affect, + anxious affect, + labile affect and mood congruent with affect Mood: + depressed mood and + anxious mood Thought Process: goal directed thought process and + concrete thought process Thought Content: reality based without delusions, + hopelessness, + worthlessness and + self deprecation Suicidal Thoughts: + reports suicidal thoughts Homicidal Thoughts: denies homicidal thoughts Hallucinations: no auditory hallucinations and no visual hallucinations Cognition: attention grossly intact Estimated Intelligence: average estimated intelligence Insight: + fair insight Judgement: + poor judgement Vital Signs (Past 24 Hours) Last Vital Signs Temp 36.4 C L 04/18/21 06:24 Pulse 97 H 04/18/21 06:24 Resp 16 04/18/21 06:24 BP 124/85 04/18/21 06:24 Pulse Ox 98 04/12/21 22:37 Results & Data ([facility]) Current Inpatient Medications Current Inpatient Medications: Current Inpatient Medications Acetaminophen (Acetaminophen 325 Mg Tab) 650 mg PO Q4H PRN PRN Reason: Headache or Minor Fever Stop: 05/12/21 21:48 Last Admin: 04/12/21 22:26 Dose: 650 mg Documented by: Al Hydrox/Mg Hydrox/Simethicone (Aluminum/Magnesium Susp 30 Ml Udc) 30 ml PO Q4H PRN PRN Reason: GI Upset Stop: 05/12/21 21:48 Bismuth Subsalicylate (Bismuth Subsalicylate Liqd 236 Ml) 15 ml PO PRN PRN PRN Reason: Loose Stool Stop: 05/12/21 21:48 Clonazepam (Clonazepam 1 Mg Tab) 1 mg PO Q6 PRN PRN Reason: Anxiety Stop: 05/14/21 14:50 Hydroxyzine HCl (Hydroxyzine Hcl 25 Mg Tab) 50 mg PO HSZ PRN PRN Reason: Insomnia Stop: 05/12/21 21:48 Last Admin: 04/16/21 21:39 Dose: 50 mg Documented by: Hydroxyzine HCl (Hydroxyzine Hcl 25 Mg Tab) 25 mg PO Q4H PRN PRN Reason: Anxiety Stop: 05/12/21 21:48 Lurasidone HCl (Lurasidone Hcl 40 Mg Tab) 60 mg PO DAILY DEONTE Stop: 05/16/21 08:59 Last Admin: 04/18/21 09:02 Dose: 60 mg Documented by: Magnesium Hydroxide (Magnesium Hydroxide Susp 30 Ml Udc) 30 ml PO DAILY PRN PRN Reason: Constipation Stop: 05/12/21 21:48 Miscellaneous (Remove Nicoderm Patch) 1 ea N/A DAILY@[facility] Stop: 05/13/21 08:58 Last Admin: 04/18/21 09:02 Dose: Not Given Documented by: Nicotine (Nicotine 21 Mg/24 Hr Tdsy) 21 mg TD QAM DEONTE Stop: 05/12/21 17:59 Last Admin: 04/18/21 09:03 Dose: 21 mg Documented by: Nicotine Polacrilex (Nicotine Polacrilex 2 Mg Gum) 1 piece MT Q2HWA PRN PRN Reason: cravings Stop: 05/15/21 08:34 Last Admin: 04/17/21 17:50 Dose: 1 piece Documented by: Prazosin HCl (Prazosin Hcl 1 Mg Cap) 2 mg PO HS DEONTE Stop: 05/15/21 21:59 Last Admin: 04/17/21 21:45 Dose: 2 mg Documented by: Sertraline HCl (Sertraline Hcl 50 Mg Tablet) 50 mg PO QAM DEONTE Stop: 05/16/21 08:59 Last Admin: 04/18/21 09:04 Dose: 50 mg Documented by: Sodium Chloride (Sodium Chloride 0.65% Na Soln 45 Ml ([place])) 1 - 2 sprays NA PRN PRN PRN Reason: Nasal Dryness/Congestion Stop: 05/12/21 21:48 Tramadol HCl (Tramadol Hcl 50 Mg Tablet) 50 mg PO BID PRN PRN Reason: Pain Stop: 05/14/21 17:04 Last Admin: 04/18/21 07:32 Dose: 50 mg Documented by: Mental Health & Subst Abuse Tx Psychiatrist Name of Psychiatrist: Jill Alberto Psychiatrist's Time of Appointment with Psychiatrist: Will refer you after your initial intake Psychiatric Appointment Comment: [address] [facility], [place] [address], [place] Therapist Name of Therapist: Jill Kearns Therapist's Date of Therapist Appointment: 04/25/21 Time of Therapist Appointment: 11:30 a.m. 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 Post Discharge Appointments Primary Care Physician Name Of Family Doctor: ENOCH Gunn Primary Care Date of Appointment with PCP: 04/24/21 Time of Appointment with PCP: 10:15 a.m. Provider Appointment Comment: [address] [facility] Contact Information Discharge Discharge Address: [address] [place] [address], [place] [address]
[2021-04-18] MEDS: NICOTINE POLACRILEX 2 MG GUM MT PRN (15:01)
[2021-04-18] MEDS ORDERED: clonazePAM 1 MG TAB PO PRN (15:58)
[2021-04-18] MEDS: PRAZOSIN HCL 1 MG CAP PO SCH (20:43)
[2021-04-19] MEDS: SERTRALINE HCL 50 MG TABLET PO SCH (09:38)
[2021-04-19] MEDS: LURASIDONE HCL 40 MG TAB PO SCH (09:38)
[2021-04-19] MEDS: NICOTINE POLACRILEX 2 MG GUM MT PRN (09:39)
[2021-04-19] MEDS: NICOTINE 21 MG/24 HR TDSY TD SCH (09:40)
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
== END 2021-04-19 10:57 | disposition home or self-care (01) | DRG 885 ==
LOC: ED 16:56 → 3S 21:49

== ENCOUNTER 2022-07-30 13:33 | Inpatient (IN) ==
[2022-07-30 14:34] LABS: Basophils # (auto) 0.07 K/uL (0-0.2); Basophils % (auto) 0.7 %; Eosinophils # (auto) 0.52 K/uL (0-0.50); Eosinophils % (auto) 4.9 %; Hematocrit (blood only) 42.9 % (40.1-51.0); Hemoglobin 15.4 g/dl (14.0-18.0); Immature Granulocytes # (auto) 0.07 K/uL (0.00-0.02); Immature Granulocytes % (auto) 0.7 %; Lymphocytes # (auto) 3.37 K/uL (1.2-3.4); Mean Corpuscular Hemoglobin 32.7 pg (25.0-34.0); Mean Corpuscular Hgb Conc 35.9 g/dL (32.0-36.0); Mean Corpuscular Volume 91.1 fL (80.0-100.0); Mean Platelet Volume 10.3 fL (9.4-12.4); Monocytes # (auto) 0.96 K/uL (0.24-0.82); Monocytes % (auto) 9.1 %; Neutrophils # (auto) 5.55 K/uL (1.4-6.5); Neutrophils % (auto) 52.6 %; Platelet Count 320 K/uL (130-400); RDW Coefficient of Variation 12.6 % (11.5-14.5); RDW Standard Deviation 42.1 fL (36.4-46.3); Red Blood Count 4.71 M/uL (4.63-6.08); White Blood Count 10.54 K/ul (4.8-10.8)
[2022-07-30 14:38] LABS: Appearance Urine Clear (Clear); Bilirubin Urine Negative (Negative); Blood Urine Negative (Negative); Color Urine Yellow; Glucose Urine UA Negative (Negative); Ketones Urine Trace (Negative); Leukocyte Esterase Urine Negative (Negative); Nitrite Urine Negative (Negative); Protein Urine Negative (Negative); Specific Gravity Urine 1.017 (1.000-1.030); Urobilinogen Urine Negative (Negative)
[2022-07-30 14:56] LABS: Acetaminophen < 3 ug/ml (10-30); Salicylate < 3.0 mg/dl (3.0-30)
[2022-07-30 14:57] LABS: Albumin Globulin Ratio 1.4 (0.9-2); Albumin Level 4.5 gm/dl (3.4-5.0); BUN Creatinine Ratio 12.7 (10-20); Bilirubin,Total 0.6 mg/dl (0.2-1.0); Calcium 9.3 mg/dl (8.5-10.1); Creatinine Clr Calc Pharmacy 157.2 ml/min; Est GFR (African American) 121.4 ml/min; Est GFR (Non-African American) 104.7 ml/min; Globulin 3.2 gm/dl (2.5-4.0); Potassium 3.6 mmol/L (3.5-5.1); Total Protein 7.7 gm/dl (6.0-8.3)
[2022-07-30 15:15] LABS: Amphetamines+Metham, Urine Neg (Neg); Barbiturates, Urine Neg (Neg); Benzodiazepine, Urine Neg (Neg); Cocaine, Urine Neg (Neg); MDMA (Ecstacy), Urine Neg (Neg); Methadone, Urine Neg (Neg); Opiate, Urine Neg (Neg); Phencyclidine, Urine Neg (Neg)
--- NOTE | 2022-07-30 16:25 | Emergency Department Note ---
Impression & Plan Mood disorder, Suicidal ideation ED Provider Note INFORMANT: Patient ED PROVIDER(S): Bay López MD CHIEF COMPLAINT: Suicidal PLAN: Disposition: Admitted Condition: Good Outpatient prescription management: none Referral: None MEDICAL DECISION MAKING: Patient presented because of suicidal ideation. He was here on the direction of his outpatient psychiatrist. Patient is voluntary. He is calm and cooperative. He had unremarkable laboratory testing. He does smoke regularly and we discussed nicotine patch. 1 was administered. COVID testing negative. I did discuss the patient's case with the ED psychiatric case operator. Patient was formally evaluated by them as well. Inpatient recommended. Patient had unremarkable laboratory testing. He was evaluated by [facility] for inpatient voluntary psychiatric treatment. Patient was accepted. Patient was admitted fo r further management. After review of the information above and other included data, I feel the pat ient requires inpatient treatment.. Triage Nursing notes reviewed and agree them. Vital Signs: reviewed and remarkable for no significant abnormalities Prior /Outside records reviewed: none Differential diagnosis: Mood disorder, infection, hypoglycemia, electrolyte abnormalities, cardiac sources, intracerebral event, toxicologic, trauma, neurologic, as well as other pathologies. Diagnostics, as interpreted by me: ECG: none Cardiac Monitoring: none Medical decision rules: none Imaging studies: Deferred HPI: The patient is a 52 year old male who presents to the Emergency Room with complaints of suicidal ideation. This started to worsen over the last week or 2 and is persistent. Patient was in contact with his psychiatrist and was referred to the ER for inpatient treatment. Patient is voluntary. Patient notes inpatient treatment 1 year ago at the [facility] for medication adjustment. The patient also notes the following associated symptoms, fatigue, lack of energy, feeling depressed. Patient is suicidal with plan. The patient has found no relieving factors. Current pain is rated as 5/10. Patient notes chronic back pain. Denies any recent changes regarding his back. Denies any recent medical illness. Pt denies LOC, headache, fevers, chills, diaphoresis, visual changes, neck pain, chest pain, breathing difficulties, nausea, vomiting, abdominal pain, melena, hematochezia, urinary symptoms, numbness, weakness, lymphadenopathy, rash, or other complaints. PAST MEDICAL HISTORY: See Below, bipolar PAST SURGICAL HISTORY: See Below, SOCIAL HISTORY: See Below, smokes HOME MEDICATIONS: See Below ALLERGIES: See Below VITALS: See Below PHYSICAL EXAMINATION: GENERAL: Awake, alert, depressed-appearing, in no distress HENT: Normocephalic, atraumatic. Oropharynx unremarkable. EYES: Normal conjunctiva. Sclera non-icteric. NECK: Inspection normal. Non-tender. Supple. No nuchal rigidity. FROM. No masses. RESPIRATORY: Clear to auscultation. No wheezes. No rales. Normal respiratory effort. CARDIAC: Normal rate. Normal rhythm. No murmurs. No rubs. Extremities warm and well perfused. Pulses equal. No JVD. GI: Soft, non-distended. No tenderness to palpation. No rebound or guarding. No masses. RECTAL: Deferred. MUSCULOSKELETAL: Atraumatic. Chest examination reveals no tenderness. The back is symmetrical on inspection without obvious abnormality. There is no CVA tenderness to palpation. No joint edema. LOWER EXTREMITIES: Calves are equal size bilaterally and non-tender. No edema. No discoloration. NEURO: Normal sensorium. No sensory or motor deficits noted. SKIN: No rash or jaundice noted. PSYCH: Depressed mood and flat affect. Positive SI. No HI. No hallucinations. Past Med/Surg History Medical History (Updated 07/30/22 @ 16:25 by Bay López MD) Anxiety Depression Depression with suicidal ideation Other and unspecified hyperlipidemia Pre-diabetes Vitamin D deficiency, unspecified Surgical History S/P tonsillectomy Family History Denies family history of Ovarian cancer Prostate cancer Diabetes Myocardial infarction Breast cancer Colorectal cancer Cancer Stroke Social History Smoking Status: Current every day smoker Tobacco Type: Smokeless Tobacco (Dip or Chew) Age Started Using Tobacco: 22; packs per day: 0.5; Cigarettes Per Day: 10; Second Hand Exposure: No; Hx Alcohol Use: No Hx Substance Use: No Preferred Language: Occitan Communication Ability: Effective Visual Impairment: No Limitations Hearing Ability: Normal Beliefs That Will Affect Care: None marital status: Single current occupational status: employed 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 [employer] Feels Safe at Home: Yes Childhood Exposure to Second-Hand Smoke: Yes Dental Care, Regularly: No Physical Activity Frequency: Does not Exercise Seatbelt Use: always Gender Identity: Male Assistive Devices: None Allergies Allergies Allergy/AdvReac Type Severity Reaction Status Date / Time No Known Allergies Allergy Verified 07/30/22 17:51 Home Meds Home Medications Medication Instructions Recorded Confirmed clonazepam 1 mg tablet (Klonopin) 1 mg PO Q8 PRN anxiety 05/14/21 07/30/22 Previous Rx's Medication Instructions Recorded lurasidone 60 mg tablet (Latuda) 60 mg PO DAILY 30 days #30 tabs 11/14/21 prazosin 2 mg capsule 2 mg PO HS 30 days #30 caps 11/14/21 sertraline 100 mg tablet 150 mg PO QAM 30 days #60 tabs 11/14/21 Results & Data (ED) Vital Signs Vital Signs - 24 hr 07/30/22 13:35 07/30/22 13:33 07/30/22 15:50 Temperature 36.8 C Temperature Source Temporal Artery Scan Pulse Rate 97 H Pulse Rate [Apical] 88 Pulse Rhythm Regular Pulse Rhythm [Apical] Regular Respiratory Rate 16 16 20 Respiratory Effort / Characteristics Non-Labored Spontaneous Non-Labored Non-Labored Spontaneous Respiratory Depth Normal Normal Normal Respiratory Pattern Regular Blood Pressure 133/94 Blood Pressure [Left Arm] 134/86 Blood Pressure Mean 107 Blood Pressure Mean [Left Arm] 102 Pulse Oximetry 94 97 Oxygen Delivery Method Room Air Room Air Sepsis Recent Fever Within 48 Hours No Sepsis New/Unexplained Change in Mental Status No Sepsis Action Taken by Nursing No Action Required Laboratory Data 07/30/22 13:50 07/30/22 13:50 Lab Results 07/30/22 07/30/22 07/30/22 Range/Units 13:50 13:50 13:50 WBC 10.54 (4.8-10.8) K/ul RBC 4.71 (4.63-6.08) M/uL Hgb 15.4 (14.0-18.0) g/dl Hct 42.9 (40.1-51.0) % MCV 91.1 (80.0-100.0) fL MCH 32.7 (25.0-34.0) pg MCHC 35.9 (32.0-36.0) g/dL RDW Std Deviation 42.1 (36.4-46.3) fL RDW Coeff of [place] 12.6 (11.5-14.5) % Plt Count 320 (130-400) K/uL MPV 10.3 (9.4-12.4) fL Immature Gran % (Auto) 0.7 % Neut % (Auto) 52.6 % Lymph % (Auto) 32.0 % [place] % (Auto) 9.1 % Eos % (Auto) 4.9 % Baso % (Auto) 0.7 % Neut # (Auto) 5.55 (1.4-6.5) K/uL Lymph # (Auto) 3.37 (1.2-3.4) K/uL [place] # (Auto) 0.96 H (0.24-0.82) K/uL Eos # (Auto) 0.52 H (0-0.50) K/uL Baso # (Auto) 0.07 (0-0.2) K/uL Immature Gran # (Auto) 0.07 H (0.00-0.02) K/uL Sodium 134 L (136-145) mmol/L Potassium 3.6 (3.5-5.1) mmol/L Chloride 100 (98-107) mmol/L Carbon Dioxide 25 (21-32) mmol/L Anion Gap 9 (3-11) BUN 10 (6-23) mg/dl Creatinine 0.79 (0.6-1.4) mg/dl Est Cr Clr Drug Dosing 157.2 ml/min Est GFR ( Amer) 121.4 ml/min Est GFR (Non-Af Amer) 104.7 ml/min BUN/Creatinine Ratio 12.7 (10-20) Glucose 106 H (70-99(Fasting)) mg/dl Calcium 9.3 (8.5-10.1) mg/dl Total Bilirubin 0.6 (0.2-1.0) mg/dl AST 21 (13-39) U/L ALT 33 (7-52) U/L Alkaline Phosphatase 56 (34-104) U/L Total Protein 7.7 (6.0-8.3) gm/dl Albumin 4.5 (3.4-5.0) gm/dl Globulin 3.2 (2.5-4.0) gm/dl Albumin/Globulin Ratio 1.4 (0.9-2) TSH 2.286 (0.300-4.500) uIu/ml Urine Color Urine Appearance (Clear) Urine pH (4.5-7.5) Ur Specific [place] (1.000-1.030) Urine Protein (Negative) Urine Glucose (UA) (Negative) Urine Ketones (Negative) Urine Blood (Negative) Urine Nitrite (Negative) Urine Bilirubin (Negative) Urine Urobilinogen (Negative) Ur Leukocyte Esterase (Negative) Salicylates (3.0-30) mg/dl Urine Opiates Screen (Neg) Ur Methadone, Qual (Neg) Acetaminophen (10-30) ug/ml Urine Barbiturates (Neg) Ur Phencyclidine (PCP) (Neg) U Amphetamin/Meth Scrn (Neg) MDMA (Ecstasy) Screen (Neg) U Benzodiazepines Scrn (Neg) Ur Cocaine Metabolite (Neg) U Marijuana (THC) Screen (Neg) Ethyl Alcohol mg/dL (<10.0) mg/dl SARS-CoV-2, RNA, NAAT (NEGATIVE) 07/30/22 07/30/22 07/30/22 Range/Units 13:50 13:50 13:50 WBC (4.8-10.8) K/ul RBC (4.63-6.08) M/uL Hgb (14.0-18.0) g/dl Hct (40.1-51.0) % MCV (80.0-100.0) fL MCH (25.0-34.0) pg MCHC (32.0-36.0) g/dL RDW Std Deviation (36.4-46.3) fL RDW Coeff of [place] (11.5-14.5) % Plt Count (130-400) K/uL MPV (9.4-12.4) fL Immature Gran % (Auto) % Neut % (Auto) % Lymph % (Auto) % [place] % (Auto) % Eos % (Auto) % Baso % (Auto) % Neut # (Auto) (1.4-6.5) K/uL Lymph # (Auto) (1.2-3.4) K/uL [place] # (Auto) (0.24-0.82) K/uL Eos # (Auto) (0-0.50) K/uL Baso # (Auto) (0-0.2) K/uL Immature Gran # (Auto) (0.00-0.02) K/uL Sodium (136-145) mmol/L Potassium (3.5-5.1) mmol/L Chloride (98-107) mmol/L Carbon Dioxide (21-32) mmol/L Anion Gap (3-11) BUN (6-23) mg/dl Creatinine (0.6-1.4) mg/dl Est Cr Clr Drug Dosing ml/min Est GFR ( Amer) ml/min Est GFR (Non-Af Amer) ml/min BUN/Creatinine Ratio (10-20) Glucose (70-99(Fasting)) mg/dl Calcium (8.5-10.1) mg/dl Total Bilirubin (0.2-1.0) mg/dl AST (13-39) U/L ALT (7-52) U/L Alkaline Phosphatase (34-104) U/L Total Protein (6.0-8.3) gm/dl Albumin (3.4-5.0) gm/dl Globulin (2.5-4.0) gm/dl Albumin/Globulin Ratio (0.9-2) TSH (0.300-4.500) uIu/ml Urine Color Yellow Urine Appearance Clear (Clear) Urine pH 7.0 (4.5-7.5) Ur Specific [place] 1.017 (1.000-1.030) Urine Protein Negative (Negative) Urine Glucose (UA) Negative (Negative) Urine Ketones Trace H (Negative) Urine Blood Negative (Negative) Urine Nitrite Negative (Negative) Urine Bilirubin Negative (Negative) Urine Urobilinogen Negative (Negative) Ur Leukocyte Esterase Negative (Negative) Salicylates < 3.0 L (3.0-30) mg/dl Urine Opiates Screen (Neg) Ur Methadone, Qual (Neg) Acetaminophen < 3 L (10-30) ug/ml Urine Barbiturates (Neg) Ur Phencyclidine (PCP) (Neg) U Amphetamin/Meth Scrn (Neg) MDMA (Ecstasy) Screen (Neg) U Benzodiazepines Scrn (Neg) Ur Cocaine Metabolite (Neg) U Marijuana (THC) Screen (Neg) Ethyl Alcohol mg/dL < 10.0 (<10.0) mg/dl SARS-CoV-2, RNA, NAAT (NEGATIVE) 07/30/22 07/30/22 Range/Units 13:50 13:52 WBC (4.8-10.8) K/ul RBC (4.63-6.08) M/uL Hgb (14.0-18.0) g/dl Hct (40.1-51.0) % MCV (80.0-100.0) fL MCH (25.0-34.0) pg MCHC (32.0-36.0) g/dL RDW Std Deviation (36.4-46.3) fL RDW Coeff of [place] (11.5-14.5) % Plt Count (130-400) K/uL MPV (9.4-12.4) fL Immature Gran % (Auto) % Neut % (Auto) % Lymph % (Auto) % [place] % (Auto) % Eos % (Auto) % Baso % (Auto) % Neut # (Auto) (1.4-6.5) K/uL Lymph # (Auto) (1.2-3.4) K/uL [place] # (Auto) (0.24-0.82) K/uL Eos # (Auto) (0-0.50) K/uL Baso # (Auto) (0-0.2) K/uL Immature Gran # (Auto) (0.00-0.02) K/uL Sodium (136-145) mmol/L Potassium (3.5-5.1) mmol/L Chloride (98-107) mmol/L Carbon Dioxide (21-32) mmol/L Anion Gap (3-11) BUN (6-23) mg/dl Creatinine (0.6-1.4) mg/dl Est Cr Clr Drug Dosing ml/min Est GFR ( Amer) ml/min Est GFR (Non-Af Amer) ml/min BUN/Creatinine Ratio (10-20) Glucose (70-99(Fasting)) mg/dl Calcium (8.5-10.1) mg/dl Total Bilirubin (0.2-1.0) mg/dl AST (13-39) U/L ALT (7-52) U/L Alkaline Phosphatase (34-104) U/L Total Protein (6.0-8.3) gm/dl Albumin (3.4-5.0) gm/dl Globulin (2.5-4.0) gm/dl Albumin/Globulin Ratio (0.9-2) TSH (0.300-4.500) uIu/ml Urine Color Urine Appearance (Clear) Urine pH (4.5-7.5) Ur Specific [place] (1.000-1.030) Urine Protein (Negative) Urine Glucose (UA) (Negative) Urine Ketones (Negative) Urine Blood (Negative) Urine Nitrite (Negative) Urine Bilirubin (Negative) Urine Urobilinogen (Negative) Ur Leukocyte Esterase (Negative) Salicylates (3.0-30) mg/dl Urine Opiates Screen Neg (Neg) Ur Methadone, Qual Neg (Neg) Acetaminophen (10-30) ug/ml Urine Barbiturates Neg (Neg) Ur Phencyclidine (PCP) Neg (Neg) U Amphetamin/Meth Scrn Neg (Neg) MDMA (Ecstasy) Screen Neg (Neg) U Benzodiazepines Scrn Neg (Neg) Ur Cocaine Metabolite Neg (Neg) U Marijuana (THC) Screen Pos H (Neg) Ethyl Alcohol mg/dL (<10.0) mg/dl SARS-CoV-2, RNA, NAAT NEGATIVE (NEGATIVE) Administered Medications Nicotine (Nicotine 14 Mg/24 Hr Patch) 14 mg TD [facility] Stop: 08/29/22 16:59 Last Admin: 07/30/22 16:56 Dose: Not Given Documented By: Discontinued Medications Nicotine (Nicotine 14 Mg/24 Hr Patch) 14 mg TD [facility] Stop: 08/30/22 08:59 Last Admin: 07/30/22 16:55 Dose: 14 mg Documented By: Discharge Plan Visit Data Chief Complaint: Mental Health Evaluation Stated Complaint: MENTAL HEALTH EVALUATION ED Provider: Bay López Discharge Problem: Mood disorder, Suicidal ideation Patient Disposition: Admitted As Inpatient Discharge Instructions Interventions: ED Discharge Assessment Last Done: 07/30/22 17:55
[2022-07-30] MEDS ORDERED: NICOTINE 14 MG/24 HR PATCH TD SCH (17:00)
[2022-07-30] MEDS ORDERED: ACETAMINOPHEN 325 MG TAB PO PRN (17:28)
[2022-07-30] MEDS ORDERED: hydrOXYzine HCl 25 MG TAB PO PRN ×2 (17:28)
[2022-07-30] MEDS ORDERED: BISMUTH SUBSALICYLATE LIQD 236 ML PO PRN (17:28)
[2022-07-30] MEDS ORDERED: ALUMINUM/MAGNESIUM SUSP 30 ML UDC PO PRN (17:28)
[2022-07-30] MEDS ORDERED: MAGNESIUM HYDROXIDE SUSP 30 ML UDC PO PRN (17:28)
[2022-07-30] MEDS ORDERED: SODIUM CHLORIDE 0.65% NA SOLN 45 ML (OCEAN) PRN (17:28)
[2022-07-30] MEDS ORDERED: clonazePAM 1 MG TAB PO PRN (18:12)
[2022-07-30] MEDS ORDERED: OLANZapine 5 MG TABLET PO PRN (18:20)
[2022-07-30] MEDS: PRAZOSIN HCL 1 MG CAP PO SCH (21:05)
[2022-07-31] MEDS: NICOTINE 14 MG/24 HR PATCH TD SCH (08:45)
--- NOTE | 2022-07-31 08:46 | History & Physical ---
Date of Service July 31, 2022 Impression / Recommendations Impression 52 year old with a history of BPAD and PTSD who was admitted for mood cycling and SI with plans of shooting himself or jumping from a parking garage. Diagnostically consistent with BPAD, mixed episode as well as PTSD by history. He is deemed unstable and requires psychiatric hospitalization for diagnostic clarification, safety and stabilization, medication management and development of further coping skills. Discussed medication treatment options in detail including antipsychotics, lamictal, Coqui, Depakote. Discussed risks, benefits and alternatives. Patient would like to start and consented to depakote for BPAD and olanzapine for short- term use for insomnia and mood stabilization. Reviewed side effects including but not limited to: liver changes/hepatitis, weight gain and need for routine monitoring and avoiding use of alcohol due to added potential for liver effects. Reviewed baseline labs of CBC with diff, LFTs, electrolytes, PT, and weight were preformed and WNL. MNPR due to irritability Overall, I spent a total of 75 minutes with this case including review of chart records, review of labwork, review of past EKG QTc, direct evaluation of the patient, counseling the patient, ordering medication, discussion of the patient with nursing and social work, and documentation in the electronic health record. (1) Bipolar 1 disorder, mixed, severe: (2) Suicidal ideation: (3) PTSD (post-traumatic stress disorder): Plan 07/31/2022: The patient was admitted to the [facility] ([facility] mental health unit) on q15 min checks (behavioral with suicide precautions) for safety. The patient will participate in group, recreational, and milieu therapies and will be offered additional individual and family sessions as clinically appropriate. -Start Depakote -taper Latuda to 80mg qd with dinner -decrease sertraline to 100mg qd -start zyprexa 10mg hs -fasting lipid panel and glucose tomorrow -will collaborate with his outpt psychiatrist Inventory Assets Strengths: supportive relationships, willing to get treatment, good rapport with outpatient provider Needs: safety and stabilization, medication adjustment, additional coping skills Suicide Risk Level Suicide Risk Level: High-Moderate (q15 min suicide checks) (severe depression and cycling mood with SI with plan prior to admission but feels safe in the hospital, able to safety contract and agrees to let nursing/staff know should they develop plan, intent or feel unable to remain safe.) Suicide Risk Level Comments: Risk Factors Assessment Male: Yes : Yes Do You Have Access To A Gun?: No Health Problems: No Mental Health Diagnoses: Yes Substance Use Disorders: Yes Previous Attempt: Yes Family History of Suicide: Yes Previous Psychiatric Hospitalization: Yes Protective Factors Assessment Employed: No Stable Relationships: Yes Good Rapport with Provider: Yes Psychiatric History Identifying Data ANAMARIA KINGSTON is a 52-year-old M who currently lives in [place] with his girlfriend and dogs, has a history of BPAD, and was admitted on 07/30/22 17:28 on a 201 voluntary commitment for worsening depression with SI with plan. Chief Complaint "I'm having intrusive thoughts". History of Present Illness He presents for psychiatric admission for worsening depression and SI with plan of jumping from a parking garage in the context of multiple psychosocial stressors including girlfriend with mental health challenges, loss of multiple family members and turning 52 "has freaked me out more than I think it would". Describes many family members who by COVID which brings back traumatic memories from loss of his parents at a young age. Holding the grief and his parents memories can be very isolating and overwhelming. He describes intrusive thoughts and that his mood has been "cycling". He's been thinking of shooting himself in the head, which is an "intrusive thought that keeps coming into my head" though doesn't have a gun. Also thought about jumping from a parking garage. Sleep is very poor. Appetite has been low except when he smokes cannabis. He is currently prescribed any psychiatric medications including Latuda 120mg qd (but he doesn't think it's working and it's hard to take it with food), hasn't been taking prescribed mirtazapine 15mg HS, prazosin 2mg hs, sertraline 150mg qd (but he thinks this makes him "a little manic" but it does help with the depression), has been intermittently taking his girlfriend's zyprexa 10mg to help with sleep. Psychiatric ROS notable for history of wilbur and PTSD. No current nor history of psychosis, OCD nor eating disorder. Past Psychiatric History Current Psychiatric Diagnosis: Bipolar disorder, PTSD Outpatient Services: Dr. Stokes for telepsychiatry and therapy weekly through [facility] Previous Psych Admissions[facility] April-June 2021 for episode of wilbur, [facility] Mar 2021, [place] x2 Do You Have Access To A Gun?: No History of Previous Suicide Attempt: Yes Describe Attempts in the Past: cutting wrists 2017 Past Medication Trials: he can't recall but doesn't recall Wellbutrin trial, no hx Depakote, no hx Coqui, no hx risperidone, he thinks he's tried abilify Past Head Trauma/Neuro History History of Concussion/Seizure: Yes (hx concussions 3-4 times, hospitalized ) no hx seizures, last concussion 2016, all with LOC Allergies Allergy/AdvReac Type Severity Reaction Status Date / Time No Known Allergies Allergy Verified 07/30/22 17:51 Home Medications Medication Instructions Recorded Confirmed Type clonazepam 1 mg tablet (Klonopin) 1 mg PO Q8 PRN anxiety 05/14/21 11/14/21 History prazosin 2 mg capsule 2 mg PO HS 30 days #30 caps 11/14/21 07/30/22 Rx Vraylar 1.5 mg 07/30/22 History lurasidone 60 mg tablet (Latuda) 120 mg PO DAILY 07/30/22 07/30/22 History mirtazapine 15 mg tablet 15 mg HS 07/30/22 07/30/22 History sertraline 100 mg tablet 100 mg PO QAM 07/30/22 07/30/22 History Family History Family History of: Depression (father), Anxiety (father), Alcoholism/Drug Abuse (father, brother), Bipolar (mother) and Suicide Completion (mother and father by suicide) Alcohol History Hx of Alcohol Use Over the Past 12 Months: Yes (Last use May) AUDIT Total Score: 7 No use since May 2022, wanted to stop given family history of alcohol use. Was prescribed naltrexone but hasn't needed to start it as hasn't been drinking. History of AA, not doing currently. No history of residential treatment. Smoking Use Have You Smoked or Used Tobacco Products in the Last 30 Days: Yes tobacco type: cigarettes and smokeless tobacco (dip) Smoking Status: Current every day smoker Smoking packs per day: 2 Substance History Hx of Prescription Med Misuse Over the Past 12 Months: No Hx of Over the Counter Med Misuse Over the Past 12 Months: No Hx of Inhalent Misuse Over the Past 12 Months: No Hx of Organic Substance Use Over the Past 12 Months: No (Uses medical marijuana) Hx of Illegal Substances/Street Drug Use Over Past 12 Months: No Problems as a Result of Past Substance Use: None Identified smokes marijuana, likes that it "calms me down, gives me a comfortable feeling, and if having racing thoughts it slows them down", doesn't like that sometimes it makes him "really hungry" Personal History Living Arrangements: Home Childhood: parents when he was young, lived in [facility]. 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 Other Number Of Children: 1 adult son Beliefs That Will Affect Care: None Current Legal Problems: No Hx Legal Problems: Yes (incarceration 2-3 years ago for PFA violation) Hx Traumatic Life Events: Yes Patient History Medical History (Updated 07/31/22 @ 16:05 by Jamaica Villanueva MD) Anxiety Depression Depression with suicidal ideation Other and unspecified hyperlipidemia Pre-diabetes Vitamin D deficiency, unspecified Surgical History S/P tonsillectomy Family History Denies family history of Ovarian cancer Prostate cancer Diabetes Myocardial infarction Breast cancer Colorectal cancer Cancer Stroke Social History Smoking Status: Current every day smoker Tobacco Type: Smokeless Tobacco (Dip or Chew) Age Started Using Tobacco: 22; packs per day: 0.5; Cigarettes Per Day: 10; Second Hand Exposure: No; Hx Alcohol Use: No Hx Substance Use: No Preferred Language: Lao Communication Ability: Effective Visual Impairment: No Limitations Hearing Ability: Normal Mlt Required: No Beliefs That Will Affect Care: None marital status: Single current occupational status: employed 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 [employer] Feels Safe at Home: Yes Childhood Exposure to Second-Hand Smoke: Yes Dental Care, Regularly: No Physical Activity Frequency: Does not Exercise Seatbelt Use: always Gender Identity: Male Assistive Devices: None Review of Systems Review of Systems: All systems reviewed & are unremarkable except as noted in HPI & below (chronic left knee pain ) Physical Exam Psychiatric: Orientation: alert and oriented x 3 Apperance: appropriately dressed and appropriately groomed Eye Contact: good eye contact Motor Behavior: no abnormal motor movements Speech: normal rate/rhythm/volume of speech Affect: + flat affect Mood: + depressed mood and + irritable mood Thought Process: goal directed thought process Thought Content: reality based without delusions Suicidal Thoughts: denies suicidal intent; + reports suicidal thoughts (intermittent thoughts ) and + reports suicidal plan (no plans in the hospital, outside shoot or jump from building) Homicidal Thoughts: denies homicidal thoughts Hallucinations: no auditory hallucinations and no visual hallucinations Cognition: recent memory grossly intact, remote memory grossly intact, attention grossly intact and language grossly intact Estimated Intelligence: consistent with education level Insight: + fair insight Judgement: + limited judgement Vital Signs (Past 24 Hours): Last Vital Signs Temp 37.1 C 07/31/22 06:32 Pulse 90 07/31/22 06:32 Resp 18 07/31/22 06:35 BP 111/76 07/31/22 06:35 Pulse Ox 96 07/30/22 19:36 O2 Del Method 07/30/22 19:36 Exam Statement: A physical exam was performed in the ED by Dr. López for the purposes of medical clearance. I accept that physical as correct and adequate for the purposes of the inpatient physical exam. Results & Data ([facility]) Laboratory Results Laboratory Results - last 24 hr 07/30/22 07/30/22 07/30/22 13:50 13:50 13:50 WBC 10.54 RBC 4.71 Hgb 15.4 Hct 42.9 MCV 91.1 MCH 32.7 MCHC 35.9 RDW Std Deviation 42.1 RDW Coeff of [place] 12.6 Plt Count 320 MPV 10.3 Immature Gran % (Auto) 0.7 Neut % (Auto) 52.6 Lymph % (Auto) 32.0 Cook % (Auto) 9.1 Eos % (Auto) 4.9 Baso % (Auto) 0.7 Neut # (Auto) 5.55 Lymph # (Auto) 3.37 Cook # (Auto) 0.96 H Eos # (Auto) 0.52 H Baso # (Auto) 0.07 Immature Gran # (Auto) 0.07 H Sodium 134 L Potassium 3.6 Chloride 100 Carbon Dioxide 25 Anion Gap 9 BUN 10 Creatinine 0.79 Est Cr Clr Drug Dosing 157.2 Est GFR ( Amer) 121.4 Est GFR (Non-Af Amer) 104.7 BUN/Creatinine Ratio 12.7 Glucose 106 H Calcium 9.3 Total Bilirubin 0.6 AST 21 ALT 33 Alkaline Phosphatase 56 Total Protein 7.7 Albumin 4.5 Globulin 3.2 Albumin/Globulin Ratio 1.4 TSH 2.286 Urine Color Urine Appearance Urine pH Ur Specific [place] Urine Protein Urine Glucose (UA) Urine Ketones Urine Blood Urine Nitrite Urine Bilirubin Urine Urobilinogen Ur Leukocyte Esterase Salicylates Urine Opiates Screen Ur Methadone, Qual Acetaminophen Urine Barbiturates Ur Phencyclidine (PCP) U Amphetamin/Meth Scrn MDMA (Ecstasy) Screen U Benzodiazepines Scrn Ur Cocaine Metabolite U Marijuana (THC) Screen U Marijuana THC Carboxy Drug Screen Comment Ethyl Alcohol mg/dL SARS-CoV-2, RNA, NAAT 07/30/22 07/30/22 07/30/22 13:50 13:50 13:50 WBC RBC Hgb Hct MCV MCH MCHC RDW Std Deviation RDW Coeff of [place] Plt Count MPV Immature Gran % (Auto) Neut % (Auto) Lymph % (Auto) Cook % (Auto) Eos % (Auto) Baso % (Auto) Neut # (Auto) Lymph # (Auto) Cook # (Auto) Eos # (Auto) Baso # (Auto) Immature Gran # (Auto) Sodium Potassium Chloride Carbon Dioxide Anion Gap BUN Creatinine Est Cr Clr Drug Dosing Est GFR ( Amer) Est GFR (Non-Af Amer) BUN/Creatinine Ratio Glucose Calcium Total Bilirubin AST ALT Alkaline Phosphatase Total Protein Albumin Globulin Albumin/Globulin Ratio TSH Urine Color Yellow Urine Appearance Clear Urine pH 7.0 Ur Specific [place] 1.017 Urine Protein Negative Urine Glucose (UA) Negative Urine Ketones Trace H Urine Blood Negative Urine Nitrite Negative Urine Bilirubin Negative Urine Urobilinogen Negative Ur Leukocyte Esterase Negative Salicylates < 3.0 L Urine Opiates Screen Ur Methadone, Qual Acetaminophen < 3 L Urine Barbiturates Ur Phencyclidine (PCP) U Amphetamin/Meth Scrn MDMA (Ecstasy) Screen U Benzodiazepines Scrn Ur Cocaine Metabolite U Marijuana (THC) Screen U Marijuana THC Carboxy Drug Screen Comment Ethyl Alcohol mg/dL < 10.0 SARS-CoV-2, RNA, NAAT 07/30/22 07/30/22 07/30/22 13:50 13:50 13:52 WBC RBC Hgb Hct MCV MCH MCHC RDW Std Deviation RDW Coeff of [place] Plt Count MPV Immature Gran % (Auto) Neut % (Auto) Lymph % (Auto) Cook % (Auto) Eos % (Auto) Baso % (Auto) Neut # (Auto) Lymph # (Auto) Cook # (Auto) Eos # (Auto) Baso # (Auto) Immature Gran # (Auto) Sodium Potassium Chloride Carbon Dioxide Anion Gap BUN Creatinine Est Cr Clr Drug Dosing Est GFR ( Amer) Est GFR (Non-Af Amer) BUN/Creatinine Ratio Glucose Calcium Total Bilirubin AST ALT Alkaline Phosphatase Total Protein Albumin Globulin Albumin/Globulin Ratio TSH Urine Color Urine Appearance Urine pH Ur Specific [place] Urine Protein Urine Glucose (UA) Urine Ketones Urine Blood Urine Nitrite Urine Bilirubin Urine Urobilinogen Ur Leukocyte Esterase Salicylates Urine Opiates Screen Neg Ur Methadone, Qual Neg Acetaminophen Urine Barbiturates Neg Ur Phencyclidine (PCP) Neg U Amphetamin/Meth Scrn Neg MDMA (Ecstasy) Screen Neg U Benzodiazepines Scrn Neg Ur Cocaine Metabolite Neg U Marijuana (THC) Screen Pos H U Marijuana THC Carboxy Pending Drug Screen Comment Pending Ethyl Alcohol mg/dL SARS-CoV-2, RNA, NAAT NEGATIVE Current Inpatient Medications Current Inpatient Medications: Current Inpatient Medications Acetaminophen (Acetaminophen 325 Mg Tab) 650 mg PO Q4H PRN PRN Reason: Headache or Minor Fever Stop: 08/29/22 17:27 Last Admin: 07/30/22 19:31 Dose: 650 mg Al Hydrox/Mg Hydrox/Simethicone (Aluminum/Magnesium Susp 30 Ml Udc) 30 ml PO Q4H PRN PRN Reason: GI Upset Stop: 08/29/22 17:27 Bismuth Subsalicylate (Bismuth Subsalicylate Liqd 236 Ml) 15 ml PO PRN PRN PRN Reason: Loose Stool Stop: 08/29/22 17:27 Clonazepam (Clonazepam 1 Mg Tab) 1 mg PO Q8H PRN PRN Reason: Anxiety Stop: 08/29/22 18:11 Hydroxyzine HCl (Hydroxyzine Hcl 25 Mg Tab) 50 mg PO HSZ PRN PRN Reason: Insomnia Stop: 08/29/22 17:27 Hydroxyzine HCl (Hydroxyzine Hcl 25 Mg Tab) 25 mg PO Q4H PRN PRN Reason: Anxiety Stop: 08/29/22 17:27 Magnesium Hydroxide (Magnesium Hydroxide Susp 30 Ml Udc) 30 ml PO DAILY PRN PRN Reason: Constipation Stop: 08/29/22 17:27 Miscellaneous (Remove Nicoderm Patch) 1 each N/A DAILY@0859 [facility] Stop: 08/30/22 08:58 Nicotine (Nicotine 14 Mg/24 Hr Patch) 14 mg TD QAM [facility] Stop: 08/30/22 08:59 Nicotine Polacrilex (Nicotine Polacrilex 2 Mg Gum) 1 piece MT PRN PRN PRN Reason: cravings Stop: 08/29/22 19:38 Olanzapine (Olanzapine 5 Mg Tablet) 5 mg PO BID PRN PRN Reason: Anxiety/Agitation Stop: 08/29/22 20:59 Prazosin HCl (Prazosin Hcl 1 Mg Cap) 2 mg PO HS [facility] Stop: 08/29/22 21:59 Last Admin: 07/30/22 21:05 Dose: 2 mg Sodium Chloride (Sodium Chloride 0.65% Na Soln 45 Ml ([place])) 1 - 2 sprays NA PRN PRN PRN Reason: Nasal Dryness/Congestion Stop: 08/29/22 17:27
[2022-07-31] MEDS ORDERED: NICOTINE 14 MG/24 HR PATCH TD SCH (09:00)
[2022-07-31] MEDS: SERTRALINE HCL 100 MG TABLET PO SCH (11:31)
[2022-07-31] MEDS: NICOTINE POLACRILEX 2 MG GUM MT PRN (17:40)
[2022-07-31] MEDS ORDERED: LURASIDONE HCL 40 MG TAB PO SCH (17:45)
[2022-07-31] MEDS: DIVALPROEX DELAY RELEASE 250 MG TABEC PO SCH (20:17)
[2022-07-31] MEDS: OLANZapine 10 MG TAB PO SCH (20:17)
[2022-07-31] MEDS: PRAZOSIN HCL 1 MG CAP PO SCH (20:18)
[2022-07-31] MEDS ORDERED: PRAZOSIN HCL 1 MG CAP PO SCH (22:00)
[2022-08-01] MEDS: NICOTINE 14 MG/24 HR PATCH TD SCH (08:14)
[2022-08-01] MEDS: DIVALPROEX DELAY RELEASE 250 MG TABEC PO SCH (08:14)
[2022-08-01] MEDS: SERTRALINE HCL 100 MG TABLET PO SCH (08:15)
[2022-08-01 09:59] LABS: Chol HDL Ratio 8.7 (0-5)
[2022-08-01] MEDS: NICOTINE POLACRILEX 2 MG GUM MT PRN ×2 (10:42→17:27)
--- NOTE | 2022-08-01 16:34 | Psychiatric Progress Note ---
Date of Service August 01, 2022 Impression / Recommendations Impression 52 year old with a history of BPAD and PTSD who was admitted for mood cycling and SI with plans of shooting himself or jumping from a parking garage. Diagnostically consistent with BPAD, mixed episode as well as PTSD by history. He is deemed unstable and requires psychiatric hospitalization for diagnostic clarification, safety and stabilization, medication management and development of further coping skills. MNPR due to irritability and severity of depression 08/01/22: ongoing bipolar depression vs mixed presentation. Tolerating initiation of depakote. Lipid panel reviewed and notable for elevated triglycerides, total and LDL cholesterol and with elevated fasting glucose. He consents to plan for ongoing taper of latuda and titration of depakote with eventual goal of discontinuation of zyprexa. Reviewed possible hx of TBI given severity of past concussions and cognitive changes and increased anger after concussion requiring 4 day hospitalization. (1) Bipolar 1 disorder, mixed, severe: (2) Suicidal ideation: (3) PTSD (post-traumatic stress disorder): Plan 08/01/22: Decrease latuda to 40mg qd. Increase Deapkote DR to 250mg qAM and 500mg qhs. Continue sertraline and prazosin. Continue zyprexa qhs. Update left from Dr. Stokes. 07/31/2022: The patient was admitted to the [facility] ([facility] mental health unit) on q15 min checks (behavioral with suicide precautions) for safety. The patient will participate in group, recreational, and milieu therapies and will be offered additional individual and family sessions as clinically appropri ate. -Start Depakote -taper Latuda to 80mg qd with dinner -decrease sertraline to 100mg qd -start zyprexa 10mg hs -fasting lipid panel and glucose tomorrow -will collaborate with his outpt psychiatrist Inventory Assets Strengths: supportive relationships, willing to get treatment, good rapport with outpatient provider Needs: safety and stabilization, medication adjustment, additional coping skills Suicide Risk Level Suicide Risk Level: High-Moderate (q15 min suicide checks) (severe depression and cycling mood with SI with plan prior to admission but feels safe in the hospital, able to safety contract and agrees to let nursing/staff know should they develop plan, intent or feel unable to remain safe.) Suicide Risk Level Comments: Risk Factors Assessment Male: Yes : Yes Do You Have Access To A Gun?: No Health Problems: No Mental Health Diagnoses: Yes Substance Use Disorders: Yes Previous Attempt: Yes Family History of Suicide: Yes Previous Psychiatric Hospitalization: Yes Protective Factors Assessment Employed: No Stable Relationships: Yes Good Rapport with Provider: Yes Interval History Identifying Information ANAMARIA KINGSTON is a 52-year-old M who currently lives in [place] with his girlfriend and dogs, has a history of BPAD, and was admitted on 07/30/22 17:28 on a 201 voluntary commitment for worsening depression with SI with plan. Chief Complaint "My mind isn't racing and I have less intrusive thoughts". Review of Systems Sleep Information Total Hours of Sleep: 7.75 Meal Information Percent Meal Consumed - Breakfast: 100 Percent Meal Consumed - Lunch: 100 Percent Meal Consumed - Dinner: 100 Subjective Subjective Patient was seen & assessed and interval progress reviewed with treatment team nursing and social work. Anamaria feels the depakote is helping in that his mind isn't racing as much and he's having less intrusive thoughts. Notes he was able to focus during a game of trivial pursuit which he couldn't do prior to admission. No side effects from the medication changes. Denies any somatic symptoms associated with elevated BP or HR. Physical Exam Psychiatric Orientation: alert and oriented x 3 Apperance: appropriately dressed and appropriately groomed Eye Contact: good eye contact Motor Behavior: no abnormal motor movements Speech: normal rate/rhythm/volume of speech Affect: + flat affect Mood: + depressed mood Thought Process: goal directed thought process Thought Content: reality based without delusions Suicidal Thoughts: denies suicidal intent; + reports suicidal thoughts (intermittent thoughts ) and + reports suicidal plan (no plans in the hospital, outside shoot or jump from building) Homicidal Thoughts: denies homicidal thoughts Hallucinations: no auditory hallucinations and no visual hallucinations Cognition: recent memory grossly intact, remote memory grossly intact, attention grossly intact and language grossly intact Estimated Intelligence: consistent with education level Insight: + fair insight Judgement: + limited judgement Vital Signs (Past 24 Hours) Last Vital Signs Temp 36.5 C 08/01/22 08:07 Pulse 110 H 08/01/22 08:07 Resp 18 07/31/22 10:23 BP 142/102 H 08/01/22 08:07 Pulse Ox 94 07/31/22 10:23 O2 Del Method 07/31/22 10:23 Results & Data ([facility]) Laboratory Results Laboratory Results - last 24 hr 08/01/22 07:33 Fasting Glucose 109 H Triglycerides 246 H Cholesterol 313 H LDL Cholesterol, Calc 228 VLDL Cholesterol, Calc 49 H HDL Cholesterol 36 Cholesterol/HDL Ratio 8.7 H Current Inpatient Medications Current Inpatient Medications: Current Inpatient Medications Acetaminophen (Acetaminophen 325 Mg Tab) 650 mg PO Q4H PRN PRN Reason: Headache or Minor Fever Stop: 08/29/22 17:27 Last Admin: 07/30/22 19:31 Dose: 650 mg Al Hydrox/Mg Hydrox/Simethicone (Aluminum/Magnesium Susp 30 Ml Udc) 30 ml PO Q4H PRN PRN Reason: GI Upset Stop: 08/29/22 17:27 Bismuth Subsalicylate (Bismuth Subsalicylate Liqd 236 Ml) 15 ml PO PRN PRN PRN Reason: Loose Stool Stop: 08/29/22 17:27 Divalproex Sodium (Divalproex Delay Release 250 Mg [place]) 250 mg PO BID [facility] Stop: 08/30/22 20:59 Last Admin: 08/01/22 08:14 Dose: 250 mg Hydroxyzine HCl (Hydroxyzine Hcl 25 Mg Tab) 50 mg PO HSZ PRN PRN Reason: Insomnia Stop: 08/29/22 17:27 Hydroxyzine HCl (Hydroxyzine Hcl 25 Mg Tab) 25 mg PO Q4H PRN PRN Reason: Anxiety Stop: 08/29/22 17:27 Lurasidone HCl (Lurasidone Hcl 40 Mg Tab) 80 mg PO QDD [facility] Stop: 08/30/22 17:44 Last Admin: 07/31/22 16:58 Dose: 80 mg Magnesium Hydroxide (Magnesium Hydroxide Susp 30 Ml Udc) 30 ml PO DAILY PRN PRN Reason: Constipation Stop: 08/29/22 17:27 Last Admin: 08/01/22 10:13 Dose: 30 ml Miscellaneous (Remove Nicoderm Patch) 1 each N/A DAILY@0859 [facility] Stop: 08/30/22 08:58 Last Admin: 08/01/22 08:14 Dose: Not Given Nicotine (Nicotine 14 Mg/24 Hr Patch) 14 mg TD QAM [facility] Stop: 08/30/22 08:59 Last Admin: 08/01/22 08:14 Dose: 14 mg Nicotine Polacrilex (Nicotine Polacrilex 2 Mg Gum) 1 piece MT PRN PRN PRN Reason: cravings Stop: 08/29/22 19:38 Last Admin: 08/01/22 10:42 Dose: 1 piece Olanzapine (Olanzapine 5 Mg Tablet) 5 mg PO BID PRN PRN Reason: Anxiety/Agitation Stop: 08/29/22 20:59 Olanzapine (Olanzapine 10 Mg Tab) 10 mg PO HS [facility] Stop: 08/30/22 21:59 Last Admin: 07/31/22 20:17 Dose: 10 mg Prazosin HCl (Prazosin Hcl 1 Mg Cap) 2 mg PO HS [facility] Stop: 08/29/22 21:59 Last Admin: 07/31/22 20:18 Dose: 2 mg Sertraline HCl (Sertraline Hcl 100 Mg Tablet) 100 mg PO QAM [facility] Stop: 08/30/22 09:59 Last Admin: 08/01/22 08:15 Dose: 100 mg Sodium Chloride (Sodium Chloride 0.65% Na Soln 45 Ml ([place])) 1 - 2 sprays NA PRN PRN PRN Reason: Nasal Dryness/Congestion Stop: 08/29/22 17:27 Mental Health & Subst Abuse Tx Psychiatrist Name of Psychiatrist: Rupert Stokes M.D. Psychiatrist's Psychiatric Appointment Comment: telehealth Therapist Name of Therapist: Rupert Stokes M.D. Therapist's Therapy Appointment Comment: telehalth Post Discharge Appointments Primary Care Physician Name Of Family Doctor/PCP: ENOCH Contact Information Discharge Discharge Address: [address] [place] [address]
[2022-08-01] MEDS ORDERED: LURASIDONE HCL 40 MG TAB PO SCH (17:45)
[2022-08-01] MEDS: PRAZOSIN HCL 1 MG CAP PO SCH (20:11)
[2022-08-01] MEDS: OLANZapine 10 MG TAB PO SCH (20:11)
[2022-08-01] MEDS: DIVALPROEX DELAY RELEASE 500 MG TAB PO SCH (20:13)
[2022-08-01 21:52] LABS: Marijuana Quant, GCMS Urine 2687 ng/mL (<5)
[2022-08-02] MEDS: DIVALPROEX DELAY RELEASE 250 MG TABEC PO SCH (08:43)
[2022-08-02] MEDS: NICOTINE 14 MG/24 HR PATCH TD SCH (08:43)
[2022-08-02] MEDS: SERTRALINE HCL 100 MG TABLET PO SCH (08:43)
--- NOTE | 2022-08-02 12:37 | Psychiatric Progress Note ---
Date of Service August 02, 2022 Impression / Recommendations Impression 52 year old with a history of BPAD and PTSD who was admitted for mood cycling and SI with plans of shooting himself or jumping from a parking garage. Diagnostically consistent with BPAD, mixed episode as well as PTSD by history. He is deemed unstable and requires psychiatric hospitalization for diagnostic clarification, safety and stabilization, medication management and development of further coping skills. MNPR due to history of being quick to irritability 08/02/22: mood is improving significantly with Depakote addition. Tolerating taper of Latuda and titration of Depakote well. HTN and elevated HR, denies any recent alcohol use, no signs of alcohol withdrawal. (1) Bipolar 1 disorder, mixed, severe: (2) Suicidal ideation: (3) PTSD (post-traumatic stress disorder): Plan 08/02/22: Discontinue latuda. Continue with Depakote. Check depakote level tomorrow morning. Needs family meeting. 08/01/22: Decrease latuda to 40mg qd. Increase Depakote DR to 250mg qAM and 500mg qhs. Continue sertraline and prazosin. Continue zyprexa qhs. Update left for Dr. Stokes. 07/31/2022: The patient was admitted to the [facility] ([facility]) on q15 min checks (behavioral with suicide precautions) for safety. The patient will participate in group, recreational, and milieu therapies and will be offered additional individual and family sessions as clinically appropriate. -Start Depakote -taper Latuda to 80mg qd with dinner -decrease sertraline to 100mg qd -start zyprexa 10mg hs -fasting lipid panel and glucose tomorrow -will collaborate with his outpt psychiatrist Inventory Assets Strengths: supportive relationships, willing to get treatment, good rapport with outpatient provider Needs: safety and stabilization, medication adjustment, additional coping skills Suicide Risk Level Suicide Risk Level: Moderate (q15 min suicide checks) (depression and cycling mood with SI with plan prior to admission but mood improving, denies SI and feels safe in the hospital, able to safety contract and agrees to let nursing/staff know should they develop plan, intent or feel unable to remain safe.) Suicide Risk Level Comments: Risk Factors Assessment Male: Yes : Yes Do You Have Access To A Gun?: No Health Problems: No Mental Health Diagnoses: Yes Substance Use Disorders: Yes Previous Attempt: Yes Family History of Suicide: Yes Previous Psychiatric Hospitalization: Yes Protective Factors Assessment Employed: No Stable Relationships: Yes Good Rapport with Provider: Yes Interval History Identifying Information ANAMARIA KINGSTON is a 52-year-old M who currently lives in [place] with his girlfriend and dogs, has a history of BPAD, and was admitted on 07/30/22 17:28 on a 201 voluntary commitment for worsening depression with SI with plan. Chief Complaint "I can concentrate". Review of Systems Sleep Information Total Hours of Sleep: 8.75 Meal Information Percent Meal Consumed - Breakfast: 100 Percent Meal Consumed - Lunch: 100 Percent Meal Consumed - Dinner: 100 Subjective Subjective Patient was seen & assessed and interval progress reviewed with treatment team nursing and social work. Anamaria reports his mood is "I feel good". Attending groups. Denies any SI or intrusive thoughts. No side effects from the latuda changes or increased depakote. He likes depakote and finds this is very helpful. No symptoms from elevated BP or elevated HR. Denies any somatic symptoms or pain. Sleeping well. Physical Exam Psychiatric Orientation: alert and oriented x 3 Apperance: appropriately dressed and appropriately groomed Eye Contact: good eye contact Motor Behavior: no abnormal motor movements Speech: normal rate/rhythm/volume of speech Affect: euthymic affect Mood: no depressed mood and no anxious mood Thought Process: goal directed thought process Thought Content: reality based without delusions Suicidal Thoughts: denies suicidal thoughts, denies suicidal plan and denies clemons icidal intent Homicidal Thoughts: denies homicidal thoughts Hallucinations: no auditory hallucinations and no visual hallucinations Cognition: recent memory grossly intact, remote memory grossly intact, attention grossly intact and language grossly intact Estimated Intelligence: consistent with education level Insight: + fair insight Judgement: + fair judgement Vital Signs (Past 24 Hours) Last Vital Signs Temp 36.2 C L 08/01/22 19:41 Pulse 110 H 08/01/22 08:07 Resp 18 07/31/22 10:23 BP 142/102 H 08/01/22 08:07 Pulse Ox 94 07/31/22 10:23 O2 Del Method 07/31/22 10:23 Results & Data ([facility]) Laboratory Results Laboratory Results - last 24 hr 07/30/22 13:50 U Marijuana THC Carboxy 2687 H Drug Screen Comment SEE NOTE Current Inpatient Medications Current Inpatient Medications: Current Inpatient Medications Acetaminophen (Acetaminophen 325 Mg Tab) 650 mg PO Q4H PRN PRN Reason: Headache or Minor Fever Stop: 08/29/22 17:27 Last Admin: 07/30/22 19:31 Dose: 650 mg Al Hydrox/Mg Hydrox/Simethicone (Aluminum/Magnesium Susp 30 Ml Udc) 30 ml PO Q4H PRN PRN Reason: GI Upset Stop: 08/29/22 17:27 Bismuth Subsalicylate (Bismuth Subsalicylate Liqd 236 Ml) 15 ml PO PRN PRN PRN Reason: Loose Stool Stop: 08/29/22 17:27 Divalproex Sodium (Divalproex Delay Release 250 Mg Tabec) 250 mg PO QAM [facility] Stop: 09/01/22 08:59 Last Admin: 08/02/22 08:43 Dose: 250 mg Divalproex Sodium (Divalproex Delay Release 500 Mg Tab) 500 mg PO HS [facility] Stop: 08/31/22 21:59 Last Admin: 08/01/22 20:13 Dose: 500 mg Hydroxyzine HCl (Hydroxyzine Hcl 25 Mg Tab) 50 mg PO HSZ PRN PRN Reason: Insomnia Stop: 08/29/22 17:27 Hydroxyzine HCl (Hydroxyzine Hcl 25 Mg Tab) 25 mg PO Q4H PRN PRN Reason: Anxiety Stop: 08/29/22 17:27 Magnesium Hydroxide (Magnesium Hydroxide Susp 30 Ml Udc) 30 ml PO DAILY PRN PRN Reason: Constipation Stop: 08/29/22 17:27 Last Admin: 08/01/22 10:13 Dose: 30 ml Miscellaneous (Remove Nicoderm Patch) 1 each N/A DAILY@0859 [facility] Stop: 08/30/22 08:58 Last Admin: 08/02/22 08:42 Dose: Not Given Nicotine (Nicotine 14 Mg/24 Hr Patch) 14 mg TD QAM [facility] Stop: 08/30/22 08:59 Last Admin: 08/02/22 08:43 Dose: 14 mg Nicotine Polacrilex (Nicotine Polacrilex 2 Mg Gum) 1 piece MT PRN PRN PRN Reason: cravings Stop: 08/29/22 19:38 Last Admin: 08/01/22 17:27 Dose: 1 piece Olanzapine (Olanzapine 5 Mg Tablet) 5 mg PO BID PRN PRN Reason: Anxiety/Agitation Stop: 08/29/22 20:59 Olanzapine (Olanzapine 10 Mg Tab) 10 mg PO HS DEONTE Stop: 08/30/22 21:59 Last Admin: 08/01/22 20:11 Dose: 10 mg Prazosin HCl (Prazosin Hcl 1 Mg Cap) 2 mg PO HS DEONTE Stop: 08/29/22 21:59 Last Admin: 08/01/22 20:11 Dose: 2 mg Sertraline HCl (Sertraline Hcl 100 Mg Tablet) 100 mg PO QAM [facility]ONTE Stop: 08/30/22 09:59 Last Admin: 08/02/22 08:43 Dose: 100 mg Sodium Chloride (Sodium Chloride 0.65% Na Soln 45 Ml ([place])) 1 - 2 sprays NA PRN PRN PRN Reason: Nasal Dryness/Congestion Stop: 08/29/22 17:27 Mental Health & Subst Abuse Tx Psychiatrist Name of Psychiatrist: Rupert Stokes M.D. Psychiatrist's Time of Appointment with Psychiatrist: Please confirm appointment time with provider. Psychiatric Appointment Comment: telehealth Therapist Name of Therapist: Rupert Stokes M.D. Therapist's Time of Therapist Appointment: Please confirm appointment time with provider. Therapy Appointment Comment: telehealth Post Discharge Appointments Primary Care Physician Name Of Family Doctor/PCP: ENOCH Contact Information Discharge Discharge Address: [address] [place] [address]
[2022-08-02] MEDS: NICOTINE POLACRILEX 2 MG GUM MT PRN ×2 (14:32→18:16)
[2022-08-02] MEDS: DIVALPROEX DELAY RELEASE 500 MG TAB PO SCH (20:56)
[2022-08-02] MEDS: OLANZapine 10 MG TAB PO SCH (20:56)
[2022-08-02] MEDS: PRAZOSIN HCL 1 MG CAP PO SCH (20:57)
[2022-08-03] MEDS: SERTRALINE HCL 100 MG TABLET PO SCH (08:04)
[2022-08-03] MEDS: DIVALPROEX DELAY RELEASE 250 MG TABEC PO SCH (08:04)
[2022-08-03] MEDS: NICOTINE 14 MG/24 HR PATCH TD SCH (08:05)
--- NOTE | 2022-08-03 10:09 | Discharge Summary ---
Date of Service August 03, 2022 History of Present Illness He presents for psychiatric admission for worsening depression and SI with plan of jumping from a parking garage in the context of multiple psychosocial stressors including girlfriend with mental health challenges, loss of multiple family members and turning 52 "has freaked me out more than I think it would". Describes many family members who by COVID which brings back traumatic memories from loss of his parents at a young age. Holding the grief and his parents memories can be very isolating and overwhelming. He describes intrusive thoughts and that his mood has been "cycling". He's been thinking of shooting himself in the head, which is an "intrusive thought that keeps coming into my head" though doesn't have a gun. Also thought about jumping from a parking garage. Sleep is very poor. Appetite has been low except when he smokes cannabis. He is currently prescribed any psychiatric medications including Latuda 120mg qd (but he doesn't think it's working and it's hard to take it with food), hasn't been taking prescribed mirtazapine 15mg HS, prazosin 2mg hs, sertraline 150mg qd (but he thinks this makes him "a little manic" but it does help with the depression), has been intermittently taking his girlfriend's zyprexa 10mg to help with sleep. Psychiatric ROS notable for history of wilbur and PTSD. No current nor history of psychosis, OCD nor eating disorder. Physical Exam Vital Signs (Past 24 Hours) Last Vital Signs Temp 36.7 C 08/03/22 06:47 Pulse 116 H 08/03/22 06:48 Resp 16 08/03/22 06:47 BP 133/96 08/03/22 06:48 Pulse Ox 94 07/31/22 10:23 O2 Del Method 07/31/22 10:23 See admission H&P and DOD summary. Principal Diagnosis Bipolar Affective Disorder, mixed episode Psychiatric Data See daily stay summary. In short, patient was engaged with the social/therapeuti c milieu of the unit, safety was maintained and the patient was cooperative with care. Medication changes included discontinuation of Latuda, decrease of sertraline to 100mg qd, initiation of olanzapine and initiation of Depakote and he tolerated this well. Discussed option for naltrexone, he was not interested in starting these as felt he was doing well in his sobriety. Discussed eventual goal of transitioning from olanzapine to trazodone or alternative medication for sleep in the coming weeks. Baseline labs of CBC with diff, LFTs, electrolytes, and weight were preformed and within normal limits. Depakote level at discharge was 49 mcg/mL. Recommend repeat CBC with diff, and LFTs at one month. Then CBC with diff, depakote level, and LFTs annually or anytime symptoms arise. Baseline labs of fasting glucose, fasting lipid profile, and weight were preformed and notable for elevated glucose, elevated triglycerides, elevated LDL and total cholesterol. He agreed to discuss these lipid and glucose changes with his primary care doctor to determine if statin use would be indicated. Discussed and he agrees with goal of taper to discontinuation of olanzapine over the next 2-4 weeks as he stabilizes on Depakote. If he remains on olanzapine recommend repeat weight in one month. Recommend repeat fasting glucose, HbA1c and fasting lipid profile every 12 weeks and then annually. If symptoms arise recommend checking BP, EKG, prolactin level as clinically indicated or relevant. A support session was held and safety plan was completed prior to discharge. He actively and insightfully participated in safety planning and in discussions about ways to seek support and recognizing warning signs and utilizing coping skills. Reviewed importance of seeking emergency care should SI intensify, worsen or should they feel unsafe in the future which they agree to do. On the day of discharge he stated his mood was "good" and remained future-oriented including staying on regular sleep schedule, reducing his cannabis use, being with his girlfriend, getting back to work, cleaning his house and engaging in aftercare appointments for psychiatry, potentially therapy and primary care. Day of Discharge Assessment Today the patient voices readiness for discharge. They note improvement in mood and anxiety. They deny thoughts of harm to self or others. Thoughts are organized and they are clinically improved from admission. There is no evidence of psychosis. They improved in the hospital with support and medication adjustments. They agree to take medications as prescribed and keep follow-up appointments. At the time of the discharge they are deemed to be stable and appropriate for outpatient level of care. They are not deemed to be at imminent risk of harm to self or others. They are aware of emergency and crisis services. Knows to call 911 or go to nearest emergency care center if in a crisis which cannot be handled as an outpatient. Transition of Care Transition Of Care Record: was reviewed with the patient Advance Directives Advance Directives Information Provided: Yes Advance Directives: No Mental Health Advance Directive: No Advance Directives on File: No Living Will: No Power of Tow Driver: No Advance Directives Reason:: Declines as Mental Health Visit. Suicide Risk Level Suicide Risk Level Comments: Acute risk is low given improvement in mood and denial of SI, lack of access to lethal means, plan to avoid/reduce substance use, improvement in sleep , hopefulness. Chronic risk is moderate to high given multiple non-modifiable risk factors: psychiatric co-morbid diagnoses, prior attempt, prior psychiatric hospitalizations, mood disorder, childhood trauma, family history of by suicide but also with protective factors including employed, good social support, sense of responsibility to family and social supports, outpatient care in place, positive coping skills, positive problem solving, capacity to establish therapeutic alliance, willingness to engage with treatment, capacity for self-observation. Counseled on ways to reduce acute and chronic risk including avoiding substance use, engaging with outpatient providers and starting therapy, using safety plan if needed, utilizing supports, taking medication, and using coping skills. Modifiable risk factors of SI, mood symptoms and depression were addressed during hospitalization through development of new coping skills, family meeting, safety planning, and medication adjustments. Risk Factors Assessment Male: Yes : Yes Do You Have Access To A Gun?: No Health Problems: No Mental Health Diagnoses: Yes Substance Use Disorders: Yes Previous Attempt: Yes Family History of Suicide: Yes Previous Psychiatric Hospitalization: Yes Hopelessness: No Protective Factors Assessment Employed: No Stable Relationships: Yes Supportive Family: Yes Good Rapport with Provider: Yes Tobacco Cessation at Discharge Tobacco Cessation Medication Prescribed at Discharge: Offered & Pt Refused Discharge Data Lab Results 07/30/22 07/30/22 07/30/22 13:50 13:50 13:50 WBC 10.54 RBC 4.71 Hgb 15.4 Hct 42.9 MCV 91.1 MCH 32.7 MCHC 35.9 RDW Std Deviation 42.1 RDW Coeff of [place] 12.6 Plt Count 320 MPV 10.3 Immature Gran % (Auto) 0.7 Neut % (Auto) 52.6 Lymph % (Auto) 32.0 [place] % (Auto) 9.1 Eos % (Auto) 4.9 Baso % (Auto) 0.7 Neut # (Auto) 5.55 Lymph # (Auto) 3.37 [place] # (Auto) 0.96 H Eos # (Auto) 0.52 H Baso # (Auto) 0.07 Immature Gran # (Auto) 0.07 H Sodium 134 L Potassium 3.6 Chloride 100 Carbon Dioxide 25 Anion Gap 9 BUN 10 Creatinine 0.79 Est Cr Clr Drug Dosing 157.2 Est GFR ( Amer) 121.4 Est GFR (Non-Af Amer) 104.7 BUN/Creatinine Ratio 12.7 Glucose 106 H Fasting Glucose Calcium 9.3 Total Bilirubin 0.6 AST 21 ALT 33 Alkaline Phosphatase 56 Total Protein 7.7 Albumin 4.5 Globulin 3.2 Albumin/Globulin Ratio 1.4 Triglycerides Cholesterol LDL Cholesterol, Calc VLDL Cholesterol, Calc HDL Cholesterol Cholesterol/HDL Ratio TSH 2.286 Urine Color Urine Appearance Urine pH Ur Specific [place] Urine Protein Urine Glucose (UA) Urine Ketones Urine Blood Urine Nitrite Urine Bilirubin Urine Urobilinogen Ur Leukocyte Esterase Salicylates Urine Opiates Screen Ur Methadone, Qual Acetaminophen Urine Barbiturates Valproic Acid Ur Phencyclidine (PCP) U Amphetamin/Meth Scrn MDMA (Ecstasy) Screen U Benzodiazepines Scrn Ur Cocaine Metabolite U Marijuana (THC) Screen U Marijuana THC Carboxy Drug Screen Comment Ethyl Alcohol mg/dL SARS-CoV-2, RNA, NAAT 07/30/22 07/30/22 07/30/22 13:50 13:50 13:50 WBC RBC Hgb Hct MCV MCH MCHC RDW Std Deviation RDW Coeff of [place] Plt Count MPV Immature Gran % (Auto) Neut % (Auto) Lymph % (Auto) [place] % (Auto) Eos % (Auto) Baso % (Auto) Neut # (Auto) Lymph # (Auto) [place] # (Auto) Eos # (Auto) Baso # (Auto) Immature Gran # (Auto) Sodium Potassium Chloride Carbon Dioxide Anion Gap BUN Creatinine Est Cr Clr Drug Dosing Est GFR ( Amer) Est GFR (Non-Af Amer) BUN/Creatinine Ratio Glucose Fasting Glucose Calcium Total Bilirubin AST ALT Alkaline Phosphatase Total Protein Albumin Globulin Albumin/Globulin Ratio Triglycerides Cholesterol LDL Cholesterol, Calc VLDL Cholesterol, Calc HDL Cholesterol Cholesterol/HDL Ratio TSH Urine Color Yellow Urine Appearance Clear Urine pH 7.0 Ur Specific [place] 1.017 Urine Protein Negative Urine Glucose (UA) Negative Urine Ketones Trace H Urine Blood Negative Urine Nitrite Negative Urine Bilirubin Negative Urine Urobilinogen Negative Ur Leukocyte Esterase Negative Salicylates < 3.0 L Urine Opiates Screen Ur Methadone, Qual Acetaminophen < 3 L Urine Barbiturates Valproic Acid Ur Phencyclidine (PCP) U Amphetamin/Meth Scrn MDMA (Ecstasy) Screen U Benzodiazepines Scrn Ur Cocaine Metabolite U Marijuana (THC) Screen U Marijuana THC Carboxy Drug Screen Comment Ethyl Alcohol mg/dL < 10.0 SARS-CoV-2, RNA, NAAT 07/30/22 07/30/22 07/30/22 13:50 13:50 13:52 WBC RBC Hgb Hct MCV MCH MCHC RDW Std Deviation RDW Coeff of [place] Plt Count MPV Immature Gran % (Auto) Neut % (Auto) Lymph % (Auto) [place] % (Auto) Eos % (Auto) Baso % (Auto) Neut # (Auto) Lymph # (Auto) [place] # (Auto) Eos # (Auto) Baso # (Auto) Immature Gran # (Auto) Sodium Potassium Chloride Carbon Dioxide Anion Gap BUN Creatinine Est Cr Clr Drug Dosing Est GFR ( Amer) Est GFR (Non-Af Amer) BUN/Creatinine Ratio Glucose Fasting Glucose Calcium Total Bilirubin AST ALT Alkaline Phosphatase Total Protein Albumin Globulin Albumin/Globulin Ratio Triglycerides Cholesterol LDL Cholesterol, Calc VLDL Cholesterol, Calc HDL Cholesterol Cholesterol/HDL Ratio TSH Urine Color Urine Appearance Urine pH Ur Specific [place] Urine Protein Urine Glucose (UA) Urine Ketones Urine Blood Urine Nitrite Urine Bilirubin Urine Urobilinogen Ur Leukocyte Esterase Salicylates Urine Opiates Screen Neg Ur Methadone, Qual Neg Acetaminophen Urine Barbiturates Neg Valproic Acid Ur Phencyclidine (PCP) Neg U Amphetamin/Meth Scrn Neg MDMA (Ecstasy) Screen Neg U Benzodiazepines Scrn Neg Ur Cocaine Metabolite Neg U Marijuana (THC) Screen Pos H U Marijuana THC Carboxy 2687 H Drug Screen Comment SEE NOTE Ethyl Alcohol mg/dL SARS-CoV-2, RNA, NAAT NEGATIVE 08/01/22 08/03/22 07:33 08:03 WBC RBC Hgb Hct MCV MCH MCHC RDW Std Deviation RDW Coeff of [place] Plt Count MPV Immature Gran % (Auto) Neut % (Auto) Lymph % (Auto) [place] % (Auto) Eos % (Auto) Baso % (Auto) Neut # (Auto) Lymph # (Auto) [place] # (Auto) Eos # (Auto) Baso # (Auto) Immature Gran # (Auto) Sodium Potassium Chloride Carbon Dioxide Anion Gap BUN Creatinine Est Cr Clr Drug Dosing Est GFR ( Amer) Est GFR (Non-Af Amer) BUN/Creatinine Ratio Glucose Fasting Glucose 109 H Calcium Total Bilirubin AST ALT Alkaline Phosphatase Total Protein Albumin Globulin Albumin/Globulin Ratio Triglycerides 246 H Cholesterol 313 H LDL Cholesterol, Calc 228 VLDL Cholesterol, Calc 49 H HDL Cholesterol 36 Cholesterol/HDL Ratio 8.7 H TSH Urine Color Urine Appearance Urine pH Ur Specific [place] Urine Protein Urine Glucose (UA) Urine Ketones Urine Blood Urine Nitrite Urine Bilirubin Urine Urobilinogen Ur Leukocyte Esterase Salicylates Urine Opiates Screen Ur Methadone, Qual Acetaminophen Urine Barbiturates Valproic Acid 49 L Ur Phencyclidine (PCP) U Amphetamin/Meth Scrn MDMA (Ecstasy) Screen U Benzodiazepines Scrn Ur Cocaine Metabolite U Marijuana (THC) Screen U Marijuana THC Carboxy Drug Screen Comment Ethyl Alcohol mg/dL SARS-CoV-2, RNA, NAAT Hospital Course (1) Bipolar 1 disorder, mixed, severe: (2) Suicidal ideation: (3) PTSD (post-traumatic stress disorder): Plan 08/02/22: Discontinue latuda. Continue with Depakote. Check depakote level tomorrow morning. Needs family meeting. 08/01/22: Decrease latuda to 40mg qd. Increase Depakote DR to 250mg qAM and 500mg qhs. Continue sertraline and prazosin. Continue zyprexa qhs. Update left for Dr. Stokes. 07/31/2022: The patient was admitted to the [facility] ([facility] [place] [facility]) on q15 min checks (behavioral with suicide precautions) for safety. The patient will participate in group, recreational, and milieu therapies and will be offered additional individual and family sessions as clinically appropriate. -Start Depakote -taper Latuda to 80mg qd with dinner -decrease sertraline to 100mg qd -start zyprexa 10mg hs -fasting lipid panel and glucose tomorrow -will collaborate with his outpt psychiatrist Mental Health & Subst Abuse Tx Psychiatrist Name of Psychiatrist: Rupert Stokes M.D. Psychiatrist's Time of Appointment with Psychiatrist: Please confirm appointment time with provider. Psychiatric Appointment Comment: telehealth Therapist Name of Therapist: Rupert Stokse M.D. Therapist's Time of Therapist Appointment: Please confirm appointment time with provider. Therapy Appointment Comment: telehealth Post Discharge Appointments Primary Care Physician Name Of Family Doctor/PCP: ENOCH Gonzales (Carli Jalloh PA-C) Primary Care Time of Appointment with PCP: 2:00 PM Provider Appointment Comment: [address] [facility] [id number] Smoking Cessation Counseling Tobacco Cessation Medication Prescribed at Discharge: Offered & Pt Refused Other #1: Name of Aftercare Appointment: [facility] Phone Number of Aftercare Appointment: Time of Aftercare Appointment: Call to be added to waitlist for therapy. Aftercare Appointment Comment: [address] [place] [address] #2: Name of Aftercare Appointment: [facility] Phone Number of Aftercare Appointment: [phone] Time of Aftercare Appointment: Call to inquire about resuming in-person therapy. Aftercare Appointment Comment: [address] [facility], [place] [address] #3: Name of Aftercare Appointment: [place] [address] Phone Number of Aftercare Appointment: [phone] Time of Aftercare Appointment: Please see print out of meetings in our area. Aftercare Appointment Comment: [email or web address] Contact Information Discharge Discharge Address: [address] [place] [id number] Discharge Plan Discharge Items Patient Disposition: Home - Self-Care Reason For Visit: SUICIDAL IDEATION Discharge Diagnosis: Bipolar Affective Disorder, Depressive Episode Activity: Resume your previous activity Non-emergency contact: Primary Care Provider and Psychiatrist Call non-emergency contact if: you have any medication questions and your symptoms worsen Follow-up/Referrals: PCP,NO [Primary Care Provider] - Diet: Regular Addtl Attending Provider Instructions: SPECIAL CARE INSTRUCTIONS: 1. Follow through with your scheduled aftercare appointments. If unable to keep an appointment, please call to reschedule. 2. Take your medication only as prescribed. Medication should not be changed or stopped without the approval of your doctor. In the event of worsening symptoms or concerns about side effects, contact your doctor immediately. 3. Utilize new healthy coping skills, anger management skills, and stress management skills learned during your hospitalization. Journal feelings and process them with a support person. Identify stressors or situations that may result in relapse, deterioration or inappropriate behaviors and develop a plan to deal with those issues. 4. If your coping skills are ineffective and you are in crisis, contact your outpatient providers for direction. If unable to reach your providers, please call the [facility] CRISIS LINE AT , go to the [facility] walk-in center at [address], [place], or go to the closest Emergency Room. 5. Avoid alcohol and un-prescribed drugs. 6. You have been provided with the Mental Health Advance Directives Pamphlet for your review. 7. Your condition is stable for discharge to outpatient level of care, but recovery is an ongoing process. Ifthoughts to harm yourself or others return, follow the safety plan developed during your stay. Planning for a safe return home includes securing weapons. Our treatment team recommends weaponsbe removed from the home until your outpatient provider reassesses your progress. In rare cases where the items themselvescannot be removed, guns and ammunitionshould be secured separatelyand keys stored by a reliable personoutside of the home. If you were admitted on an involuntary commitment, the police or other legal authorities may be involved in this process. AFTERCARE APPOINTMENTS: * Please call your insurance company prior to your scheduled appointment to confirm your aftercare providers are covered. Take your insurance information to your appointments. WHO TO CALL AND WHEN: Medical Emergencies: For questions or emergencies related to your hospital stay, please contact the Inpatient Behavioral Health Unit at [phone]. A customer service trainer is on-call 10/02 for the Behavioral Health Unit for emergencies At any time you feel your situation is an emergency, you may also call 911 immediately. Pending Studies at Discharge: No Stand-Alone Forms: My [employer], Smoking Cessation Medications and DC Order Prescriptions: New prazosin 2 mg capsule 2 mg PO HS 30 Days Qty: 30 0RF divalproex 250 mg Tablet,Delayed Release (Dr/Ec) 250 mg PO QAM 30 Days Qty: 30 0RF divalproex 500 mg Tablet,Delayed Release (Dr/Ec) 500 mg PO HS 30 Days Qty: 30 0RF olanzapine 10 mg Tablet 10 mg PO HS 30 Days Qty: 30 0RF Continued sertraline 100 mg tablet 100 mg PO QAM Discontinued clonazepam [Klonopin] 1 mg tablet 1 mg PO Q8 PRN (Reason: anxiety) Rx Instructions: LAST FILLED 06/11/22 FOR 60 TABS, ACCORDING TO EXT MED HX. prazosin 2 mg capsule 2 mg PO HS 30 Days Qty: 30 1RF mirtazapine 15 mg tablet 15 mg HS Vraylar 1.5 mg 1.5 mg Latuda 60 mg tablet 120 mg PO DAILY Discharge Orders: Discharge Order (Routine); Ordered 08/03/22 Ordered By: Jamaica Jefferson/Other Patient Handouts: Cholesterol Lifestyle Changes Admission Data Admit Date/Time: 07/30/22 17:28 Attending Provider: Jamaica Villanueva Admit Provider: Jamaica Villanueva Primary Care Provider: PCP,NO Other Interventions: Discharge Summary Assessment (RN) Last Done: 08/03/22 11:05 PSY Interdisciplinary Discharge Planning Last Done: 08/03/22 11:05 Coding Level of Care Code 96934 D/C day mgmt > 30 min Diagnoses Bipolar 1 disorder, mixed, severe F31.63 Suicidal ideation R45.851 PTSD (post-traumatic stress disorder) F43.10 Time Spent (min) 45
== END 2022-08-03 11:18 | disposition home or self-care (01) | DRG 885 ==
LOC: ED 13:33 → 3S 17:28

== ENCOUNTER 2022-12-31 17:12 | Inpatient (IN) ==
[2022-12-31 17:49] LABS: Appearance Urine Cloudy (Clear); Bacteria Urine Automated Negative (Negative); Bilirubin Urine 1+ (Negative); Blood Urine Negative (Negative); Color Urine Dark Yellow; Epithelial Cell Urine Auto >30 /lpf (0-5); Glucose Urine UA Negative (Negative); Ketones Urine Trace (Negative); Leukocyte Esterase Urine Negative (Negative); Nitrite Urine Negative (Negative); Protein Urine 2+ (Negative); Specific Gravity Urine 1.026 (1.000-1.030); Urobilinogen Urine Negative (Negative)
--- NOTE | 2022-12-31 17:50 | Emergency Department Note ---
Impression & Plan Feeling suicidal ADMIT ED Provider Note HPI: The patient is a 52-year-old gentleman with history of bipolar disorder, presents emergency department with suicidal thoughts. Patient was served a PFA that was filed by his girlfriend today, please served him the PFA and patient stated he was having thoughts of wanting to jump off of a building to kill himself. He was therefore brought to the ED and 302 was petitioned by police. On arrival here to the ED the patient is calm and cooperative, does admit to having suicidal thoughts. Denies any recent alcohol or drug use. He states he would like to sign in voluntarily. Patient is otherwise in no acute distress on my initial assessment. ROS: - Per HPI *Outpatient medications and allergy history reviewed. *Pertinent external medical records reviewed. PE: General: Alert HEENT: Normocephalic, trachea midline Eyes: Extraocular eye movement is intact, no scleral erythema Pulmonary: Clear to auscultation bilaterally, no wheezing Cardio: Regular rate and rhythm GI: Abdomen is soft to palpation : No suprapubic tenderness MSK: No evidence of trauma or malformation of the extremities, no edema Skin: No evidence of rash Neuro: Alert, no focal deficits Psychiatric: Cooperative Medical Decision Making: Patient presents the emergency department with suicidal thoughts. He states he was having thoughts of wanting to jump off of a building today when he was served a PFA by police from his girlfriend. Patient was therefore brought to the ED for assessment and 302 was petitioned by police. On arrival here to the ED the patient is calm and cooperative, he is in no acute distress, denies any r ecent alcohol or drug use. Clearance lab work was obtained, patient is noted to have a significant leukocytosis greater than 20,000, he denies any recent fevers, denies any recent chills, denies any cough or congestion. Unclear source of leukocytosis at this time, chest x-ray does not show any evidence of pneumonia per my interpretation, urinalysis does not show any evidence of infection. Given lack of any recent infectious signs or symptoms I suspect this is reactive, urine drug screen is po sitive for benzodiazepines and marijuana. On my reassessment patient is sleeping comfortably in bed. I feel he is medically cleared for inpatient psychiatric care. Patient will sign in voluntarily, 302 therefore not required. Patient was evaluated and accepted for placement at 3 [address]. Patient was transferred in stable condition for further management. Consultants: Case management Disposition discussion held by myself with: Patient Diagnosis: 1. Suicidal thoughts Disposition: Admission Fito Law DO Emergency Medicine Past Med/Surg History Medical History (Updated 12/31/22 @ 23:57 by Fito Law DO) Anxiety Depression Depression with suicidal ideation Hyperlipidemia Other and unspecified hyperlipidemia Pre-diabetes Suicidal ideation Vitamin D deficiency, unspecified Surgical History S/P tonsillectomy Family History Denies family history of Ovarian cancer Prostate cancer Diabetes Myocardial infarction Breast cancer Colorectal cancer Cancer Stroke Social History Smoking Status: Current every day smoker Tobacco Type: Smokeless Tobacco (Dip or Chew) Age Started Using Tobacco: 22; packs per day: 0.5; Cigarettes Per Day: 10; Second Hand Exposure: No; Do You Dip or Chew Tobacco: No (10 years averaged 1 can per day); Hx Alcohol Use: No Hx Substance Use: No Preferred Language: Niuean Communication Ability: Effective Visual Impairment: No Limitations Hearing Ability: Normal Load Manager Required: No Beliefs That Will Affect Care: None marital status: Single current occupational status: employed 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 [employer] Feels Safe at Home: No Childhood Exposure to Second-Hand Smoke: Yes Dental Care, Regularly: No Physical Activity Frequency: Does not Exercise Seatbelt Use: always Gender Identity: Male Assistive Devices: None Allergies Allergies Allergy/AdvReac Type Severity Reaction Status Date / Time No Known Drug Allergies Allergy Verified 09/10/22 16:37 Home Meds Home Medications Medication Instructions Recorded Confirmed sertraline 100 mg tablet 100 mg PO QAM 07/30/22 09/10/22 clonazepam 2 mg tablet (Klonopin) 2 mg PO DAILY PRN 09/10/22 09/10/22 divalproex 500 mg tablet,delayed 500 mg PO BID 09/10/22 09/10/22 release (Depakote) olanzapine 15 mg tablet (Zyprexa) 15 mg PO DAILY 09/10/22 09/10/22 prazosin 2 mg capsule 2 mg PO DAILY 09/10/22 09/10/22 Previous Rx's Medication Instructions Recorded atorvastatin 10 mg tablet 10 mg PO DAILY #30 tabs 09/10/22 Results & Data (ED) Vital Signs Vital Signs - 24 hr 12/31/22 17:32 12/31/22 18:13 12/31/22 19:15 Temperature 36.8 C Temperature Source Oral Pulse Rate [Left Finger] 120 H 112 H Respiratory Rate 18 18 Respiratory Effort / Characteristics Non-Labored Spontaneous Respiratory Depth Normal Respiratory Pattern Regular Blood Pressure [Right Arm] 129/108 H 149/87 H Blood Pressure Mean [Right Arm] 115 107 Blood Pressure Position [Right Arm] Sitting Pulse Oximetry 94 95 Oxygen Delivery Method Room Air Room Air Sepsis Recent Fever Within 48 Hours No Sepsis New/Unexplained Change in Mental Status N/A Sepsis Action Taken by Nursing No Action Required 12/31/22 21:45 Temperature Temperature Source Pulse Rate [Left Finger] 115 H Respiratory Rate Respiratory Effort / Characteristics Respiratory Depth Respiratory Pattern Blood Pressure [Right Arm] Blood Pressure Mean [Right Arm] Blood Pressure Position [Right Arm] Pulse Oximetry Oxygen Delivery Method Sepsis Recent Fever Within 48 Hours Sepsis New/Unexplained Change in Mental Status Sepsis Action Taken by Nursing Laboratory Data 12/31/22 18:10 12/31/22 18:10 Lab Results 12/31/22 12/31/22 12/31/22 Range/Units 17:25 17:25 17:30 WBC (4.8-10.8) K/ul RBC (4.70-6.10) M/uL Hgb (14.0-18.0) g/dl Hct (42.0-52.0) % MCV (80.0-100.0) fL MCH (25.0-34.0) pg MCHC (32.0-36.0) g/dL RDW Std Deviation (36.4-46.3) fL RDW Coeff of [place] (11.5-14.5) % Plt Count (130-400) K/uL MPV (9.4-12.4) fL Immature Gran % (Auto) % Neut % (Auto) % Lymph % (Auto) % [place] % (Auto) % Eos % (Auto) % Baso % (Auto) % Neut # (Auto) (1.40-6.50) K/uL Lymph # (Auto) (1.2-3.4) K/uL [place] # (Auto) (0.11-0.59) K/uL Eos # (Auto) (0-0.50) K/uL Baso # (Auto) (0-0.2) K/uL Immature Gran # (Auto) (0.01-0.20) K/uL Sodium (136-145) mmol/L Potassium (3.5-5.1) mmol/L Chloride (98-107) mmol/L Carbon Dioxide (21-32) mmol/L Anion Gap (3-11) BUN (6-23) mg/dl Creatinine (0.6-1.4) mg/dl Est Cr Clr Drug Dosing ml/min Est GFR ( Amer) ml/min Est GFR (Non-Af Amer) ml/min BUN/Creatinine Ratio (10-20) Glucose (70-99(Fasting)) mg/dl Calcium (8.6-10.3) mg/dl Total Bilirubin (0.2-1.0) mg/dl AST (13-39) U/L ALT (7-52) U/L Alkaline Phosphatase (34-104) U/L Total Protein (6.0-8.3) gm/dl Albumin (3.4-5.0) gm/dl Globulin (2.5-4.0) gm/dl Albumin/Globulin Ratio (0.9-2) TSH (0.300-4.500) uIu/ml Urine Color Dark Yellow Urine Appearance Cloudy A (Clear) Urine pH 5.0 (4.5-7.5) Ur Specific [place] 1.026 (1.000-1.030) Urine Protein 2+ H (Negative) Urine Glucose (UA) Negative (Negative) Urine Ketones Trace H (Negative) Urine Blood Negative (Negative) Urine Nitrite Negative (Negative) Urine Bilirubin 1+ H (Negative) Urine Urobilinogen Negative (Negative) Ur Leukocyte Esterase Negative (Negative) Urine WBC (Auto) 5-10 H (0-5) /hpf Urine RBC (Auto) 5-10 H (0-4) /hpf U Hyaline Cast (Auto) 1-5 (0-5) /lpf U Epithel Cells (Auto) >30 H (0-5) /lpf Urine Bacteria (Auto) Negative (Negative) Salicylates (3.0-30) mg/dl Urine Opiates Screen Neg (Neg) Ur Methadone, Qual Neg (Neg) Acetaminophen (10-30) ug/ml Urine Barbiturates Neg (Neg) Ur Phencyclidine (PCP) Neg (Neg) U Amphetamin/Meth Scrn Neg (Neg) MDMA (Ecstasy) Screen Neg (Neg) U Benzodiazepines Scrn Pos H (Neg) Ur Cocaine Metabolite Neg (Neg) U Marijuana (THC) Screen Pos H (Neg) Ethyl Alcohol mg/dL (<10.0) mg/dl SARS-CoV-2, RNA, NAAT NEGATIVE (NEGATIVE) 12/31/22 12/31/22 12/31/22 Range/Units 18:10 18:10 18:10 WBC 21.39 H (4.8-10.8) K/ul RBC 5.45 (4.70-6.10) M/uL Hgb 17.4 (14.0-18.0) g/dl Hct 48.9 (42.0-52.0) % MCV 89.7 (80.0-100.0) fL MCH 31.9 (25.0-34.0) pg MCHC 35.6 (32.0-36.0) g/dL RDW Std Deviation 44.8 (36.4-46.3) fL RDW Coeff of [place] 14.0 (11.5-14.5) % Plt Count 361 (130-400) K/uL MPV 9.8 (9.4-12.4) fL Immature Gran % (Auto) 1.0 % Neut % (Auto) 76.6 % Lymph % (Auto) 13.9 % [place] % (Auto) 7.1 % Eos % (Auto) 0.8 % Baso % (Auto) 0.6 % Neut # (Auto) 16.38 H (1.40-6.50) K/uL Lymph # (Auto) 2.98 (1.2-3.4) K/uL [place] # (Auto) 1.51 H (0.11-0.59) K/uL Eos # (Auto) 0.18 (0-0.50) K/uL Baso # (Auto) 0.12 (0-0.2) K/uL Immature Gran # (Auto) 0.22 H (0.01-0.20) K/uL Sodium 140 (136-145) mmol/L Potassium 4.2 (3.5-5.1) mmol/L Chloride 104 (98-107) mmol/L Carbon Dioxide 27 (21-32) mmol/L Anion Gap 9 (3-11) BUN 15 (6-23) mg/dl Creatinine 0.93 (0.6-1.4) mg/dl Est Cr Clr Drug Dosing 127.1 ml/min Est GFR ( Amer) 110.6 ml/min Est GFR (Non-Af Amer) 95.4 ml/min BUN/Creatinine Ratio 16.1 (10-20) Glucose 109 H (70-99(Fasting)) mg/dl Calcium 9.5 (8.6-10.3) mg/dl Total Bilirubin 0.6 (0.2-1.0) mg/dl AST 19 (13-39) U/L ALT 41 (7-52) U/L Alkaline Phosphatase 58 (34-104) U/L Total Protein 8.3 (6.0-8.3) gm/dl Albumin 5.0 (3.4-5.0) gm/dl Globulin 3.3 (2.5-4.0) gm/dl Albumin/Globulin Ratio 1.5 (0.9-2) TSH 1.376 (0.300-4.500) uIu/ml Urine Color Urine Appearance (Clear) Urine pH (4.5-7.5) Ur Specific [place] (1.000-1.030) Urine Protein (Negative) Urine Glucose (UA) (Negative) Urine Ketones (Negative) Urine Blood (Negative) Urine Nitrite (Negative) Urine Bilirubin (Negative) Urine Urobilinogen (Negative) Ur Leukocyte Esterase (Negative) Urine WBC (Auto) (0-5) /hpf Urine RBC (Auto) (0-4) /hpf U Hyaline Cast (Auto) (0-5) /lpf U Epithel Cells (Auto) (0-5) /lpf Urine Bacteria (Auto) (Negative) Salicylates (3.0-30) mg/dl Urine Opiates Screen (Neg) Ur Methadone, Qual (Neg) Acetaminophen (10-30) ug/ml Urine Barbiturates (Neg) Ur Phencyclidine (PCP) (Neg) U Amphetamin/Meth Scrn (Neg) MDMA (Ecstasy) Screen (Neg) U Benzodiazepines Scrn (Neg) Ur Cocaine Metabolite (Neg) U Marijuana (THC) Screen (Neg) Ethyl Alcohol mg/dL (<10.0) mg/dl SARS-CoV-2, RNA, NAAT (NEGATIVE) 12/31/22 12/31/22 Range/Units 18:10 18:10 WBC (4.8-10.8) K/ul RBC (4.70-6.10) M/uL Hgb (14.0-18.0) g/dl Hct (42.0-52.0) % MCV (80.0-100.0) fL MCH (25.0-34.0) pg MCHC (32.0-36.0) g/dL RDW Std Deviation (36.4-46.3) fL RDW Coeff of [place] (11.5-14.5) % Plt Count (130-400) K/uL MPV (9.4-12.4) fL Immature Gran % (Auto) % Neut % (Auto) % Lymph % (Auto) % [place] % (Auto) % Eos % (Auto) % Baso % (Auto) % Neut # (Auto) (1.40-6.50) K/uL Lymph # (Auto) (1.2-3.4) K/uL [place] # (Auto) (0.11-0.59) K/uL Eos # (Auto) (0-0.50) K/uL Baso # (Auto) (0-0.2) K/uL Immature Gran # (Auto) (0.01-0.20) K/uL Sodium (136-145) mmol/L Potassium (3.5-5.1) mmol/L Chloride (98-107) mmol/L Carbon Dioxide (21-32) mmol/L Anion Gap (3-11) BUN (6-23) mg/dl Creatinine (0.6-1.4) mg/dl Est Cr Clr Drug Dosing ml/min Est GFR ( Amer) ml/min Est GFR (Non-Af Amer) ml/min BUN/Creatinine Ratio (10-20) Glucose (70-99(Fasting)) mg/dl Calcium (8.6-10.3) mg/dl Total Bilirubin (0.2-1.0) mg/dl AST (13-39) U/L ALT (7-52) U/L Alkaline Phosphatase (34-104) U/L Total Protein (6.0-8.3) gm/dl Albumin (3.4-5.0) gm/dl Globulin (2.5-4.0) gm/dl Albumin/Globulin Ratio (0.9-2) TSH (0.300-4.500) uIu/ml Urine Color Urine Appearance (Clear) Urine pH (4.5-7.5) Ur Specific [place] (1.000-1.030) Urine Protein (Negative) Urine Glucose (UA) (Negative) Urine Ketones (Negative) Urine Blood (Negative) Urine Nitrite (Negative) Urine Bilirubin (Negative) Urine Urobilinogen (Negative) Ur Leukocyte Esterase (Negative) Urine WBC (Auto) (0-5) /hpf Urine RBC (Auto) (0-4) /hpf U Hyaline Cast (Auto) (0-5) /lpf U Epithel Cells (Auto) (0-5) /lpf Urine Bacteria (Auto) (Negative) Salicylates < 3.0 L (3.0-30) mg/dl Urine Opiates Screen (Neg) Ur Methadone, Qual (Neg) Acetaminophen < 3 L (10-30) ug/ml Urine Barbiturates (Neg) Ur Phencyclidine (PCP) (Neg) U Amphetamin/Meth Scrn (Neg) MDMA (Ecstasy) Screen (Neg) U Benzodiazepines Scrn (Neg) Ur Cocaine Metabolite (Neg) U Marijuana (THC) Screen (Neg) Ethyl Alcohol mg/dL < 10.0 (<10.0) mg/dl SARS-CoV-2, RNA, NAAT (NEGATIVE) Administered Medications Acetaminophen (Acetaminophen 325 Mg Tab) 650 mg PO Q4H PRN PRN Reason: Headache or Minor Fever Stop: 01/30/23 22:07 Last Admin: 12/31/22 22:33 Dose: 650 mg Documented By: GAURI Nicotine Polacrilex (Nicotine Polacrilex 2 Mg Gum) 2 piece MT PRN PRN PRN Reason: Nicotine Withdrawal Stop: 01/30/23 22:07 Last Admin: 12/31/22 22:33 Dose: 2 piece Documented By: GAURI Discharge Plan Visit Data Chief Complaint: Mental Health Evaluation Stated Complaint: THREATENING SELF HARM ED Provider: Fito Law Discharge Problem: Feeling suicidal Patient Disposition: Admitted As Inpatient Discharge Instructions Interventions: ED Discharge Assessment Last Done: 12/31/22 22:18
[2022-12-31 18:07] LABS: Amphetamines+Metham, Urine Neg (Neg); Barbiturates, Urine Neg (Neg); Benzodiazepine, Urine Pos (Neg); Cocaine, Urine Neg (Neg); MDMA (Ecstacy), Urine Neg (Neg); Methadone, Urine Neg (Neg); Opiate, Urine Neg (Neg); Phencyclidine, Urine Neg (Neg)
[2022-12-31 18:48] LABS: Basophils # (auto) 0.12 K/uL (0-0.2); Basophils % (auto) 0.6 %; Eosinophils # (auto) 0.18 K/uL (0-0.50); Eosinophils % (auto) 0.8 %; Hematocrit (blood only) 48.9 % (42.0-52.0); Hemoglobin 17.4 g/dl (14.0-18.0); Immature Granulocytes # (auto) 0.22 K/uL (0.01-0.20); Lymphocytes # (auto) 2.98 K/uL (1.2-3.4); Lymphocytes % (auto) 13.9 %; Mean Corpuscular Hemoglobin 31.9 pg (25.0-34.0); Mean Corpuscular Hgb Conc 35.6 g/dL (32.0-36.0); Mean Corpuscular Volume 89.7 fL (80.0-100.0); Mean Platelet Volume 9.8 fL (9.4-12.4); Monocytes # (auto) 1.51 K/uL (0.11-0.59); Monocytes % (auto) 7.1 %; Neutrophils # (auto) 16.38 K/uL (1.40-6.50); Neutrophils % (auto) 76.6 %; Platelet Count 361 K/uL (130-400); RDW Standard Deviation 44.8 fL (36.4-46.3); Red Blood Count 5.45 M/uL (4.70-6.10); White Blood Count 21.39 K/ul (4.8-10.8)
[2022-12-31 18:50] LABS: Acetaminophen < 3 ug/ml (10-30); Salicylate < 3.0 mg/dl (3.0-30)
[2022-12-31 18:53] LABS: Albumin Globulin Ratio 1.5 (0.9-2); BUN Creatinine Ratio 16.1 (10-20); Bilirubin,Total 0.6 mg/dl (0.2-1.0); Calcium 9.5 mg/dl (8.6-10.3); Creatinine Clr Calc Pharmacy 127.1 ml/min; Est GFR (African American) 110.6 ml/min; Est GFR (Non-African American) 95.4 ml/min; Globulin 3.3 gm/dl (2.5-4.0); Potassium 4.2 mmol/L (3.5-5.1); Total Protein 8.3 gm/dl (6.0-8.3)
[2022-12-31] MEDS ORDERED: Ativan PO Alcohol Withdrawal--Active Protocol PO PRN (22:08)
[2022-12-31] MEDS ORDERED: LORazepam 1 MG TAB PO PRN ×2 (22:08)
[2022-12-31] MEDS ORDERED: hydrOXYzine HCl 25 MG TAB PO PRN ×2 (22:08)
[2022-12-31] MEDS ORDERED: MAGNESIUM HYDROXIDE SUSP 30 ML UDC PO PRN (22:08)
[2022-12-31] MEDS ORDERED: SODIUM CHLORIDE 0.65% NA SOLN 45 ML (OCEAN) PRN (22:08)
[2022-12-31] MEDS ORDERED: BISMUTH SUBSALICYLATE LIQD 236 ML PO PRN (22:08)
[2022-12-31] MEDS ORDERED: ALUMINUM/MAGNESIUM SUSP 30 ML UDC PO PRN (22:08)
[2022-12-31] MEDS: ACETAMINOPHEN 325 MG TAB PO PRN (22:33)
[2022-12-31] MEDS: NICOTINE POLACRILEX 2 MG GUM MT PRN (22:33)
--- NOTE | 2023-01-01 07:41 | XRay Report ---
XR chest 1V portable CLINICAL HISTORY: clearance/psych with leukocytosis TECHNIQUE: Single frontal radiograph of the chest was obtained. Comparison: Comparison is made to chest radiograph 03/03/2020 FINDINGS: No lines and tubes are seen. The cardiomediastinal silhouette is normal. The lungs are clear. No evid ence of pleural effusion or pneumothorax. IMPRESSION: No acute chest disease. ACT 112: Negative or not required by law. Electronically signed by: Darek Olmstead M.D. 01/01/2023 7:40 AM
[2023-01-01] MEDS: NICOTINE 14 MG/24 HR PATCH TD SCH (09:39)
[2023-01-01] MEDS: LORazepam 1 MG TAB PO PRN ×2 (10:18→12:07)
[2023-01-01] MEDS ORDERED: GABAPENTIN 1200MG ALCOHOL WITHDRAWAL LOAD PO STA (13:41)
[2023-01-01] MEDS ORDERED: GABAPENTIN 600 MG TAB PO ONE (13:41)
[2023-01-01] MEDS: FOLIC ACID 1 MG TAB PO SCH (14:16)
[2023-01-01] MEDS: THIAMINE HCL 100 MG TAB PO SCH (14:16)
[2023-01-01] MEDS: NICOTINE POLACRILEX 2 MG GUM MT PRN ×2 (14:17→18:57)
--- NOTE | 2023-01-01 15:05 | Electrocardiogram Report ---
Test Reason : Blood Pressure : / mmHG Vent. Rate : 097 BPM Atrial Rate : 097 BPM P-R Int : 162 ms QRS Dur : 092 ms QT Int : 390 ms P-R-T Axes : 027 000 030 degrees QTc Int : 495 ms Poor data quality, interpretation may be adversely affected Normal sinus rhythm Possible Inferior infarct (cited on or before 03-MAR-2020) Abnormal ECG When compared with ECG of 14-NOV-2021 12:05, No significant change was found Confirmed by Kal Russo ([id number]) on 01/01/2023 3:04:57 PM Referred By: REFERRED SELF Confirmed By:Oleg Russo
--- NOTE | 2023-01-01 15:25 | History & Physical ---
Date of Service January 01, 2023 Impression / Recommendations Impression Anamaria is a 52 year old man with a history of BPAD, PTSD and alcohol use disorder who was admitted for worsening depression with SI with plan and intent. Diagnostically consistent with unspecified mood disorder with differential including depressive episode of bipolar disorder vs substance-induced/withdrawal depression. He is deemed in need of psychiatric hospitalization for diagnostic clarification, safety and stabilization, medication management and development of further coping skills. Discussed medication treatment options in detail. Discussed risks, benefits and alternatives. Patient would like to continue for now and consented to olanzapine for mood stabilization. Reviewed side effects including but not limited to: lowered seizure threshold, movement (TD, NMS), cardiac (QTc prolongation), and metabolic (stroke, insulin resistance) and necessity for fasting lipid and glucose labwork and AIMS done with score of 0. The patient's audit score and use history suggests problematic substance use. Brief intervention was offered and accepted. Intervention was greater than 5 minutes in length and included assessing readiness to quit, advice on how to reduce or abstain and to set a specific goal for this hospitalization. 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 The patient is in contemplative stage with regards to transtheoretical model of change. The patient is advised to decrease consumption due to depressant effects and risk of interaction with prescription medications. The patient agreed to avoid alcohol and taper benzodiazepines, will consider options for residential substance use treatment once psychiatrically stable and will be provided with recovery materials to continue to educate self on how to cope with their condition without using substances. (1) Bipolar 1 disorder, mixed, severe: (2) Alcohol use disorder: (3) Benzodiazepine misuse: (4) PTSD (post-traumatic stress disorder): Plan 01/01/2023: The patient was admitted to the [facility] on q15 min checks (behavioral with suicide precautions) for safety. The patient will participate in group, recreational, and milieu therapies and will be offered additional individual and family sessions as clinically appropriate. -Olanzapine 15mg HS for mood stabilization -AWSS with thiamine, folic acid, gabapentin and ativan as needed for scoring -Goal of potentially moving to [place] such as [place] given intermittent adherence with oral medications -Fasting lipid panel and glucose tomorrow AM Inventory Assets Strengths: good rapport with psychiatrist, willing to get treatment Needs: safety and stabilization, medication adjustment, additional coping skills, increased outpatient services Suicide Risk Level Suicide Risk Level: High-Moderate (q15 min suicide checks) (severe depression with SI with plan prior to admission but feels safe in the hospital, able to safety contract and agrees to let nursing/staff know should they develop plan, intent or feel unable to remain safe. ) Risk Factors Assessment Male: Yes : Yes Do You Have Access To A Gun?: No Health Problems: No Mental Health Diagnoses: Yes Substance Use Disorders: Yes Previous Attempt: Yes Family History of Suicide: Yes Previous Psychiatric Hospitalization: Yes Protective Factors Assessment Employed: No Good Rapport with Provider: Yes Psychiatric History Identifying Data ANAMARIA KINGSTON is a 52-year-old M who currently lives in [place] with his girlfriend, has a history of BPAD, PTSD, alcohol use disorder, and was admitted on 12/31/22 22:08 on a 201 voluntary commitment for SI with plans of jumping from a local parking garage. Chief Complaint "I'm going to do it". History of Present Illness Anamaria presented to the ED via police on a 302 warrant or worsening depression and SI with plan of jumping from a parking garage after his girlfriend filed a PFA against him. Over the 1.5 weeks he reports developing symptoms of wilbur and started to overuse his prescribed Klonopin taking on average 4mg per day over the last two weeks. Two evenings ago he took 6mg of Klonopin and relapsed on alcohol use drinking multiple beers and then got into a verbal altercation with his girlfriend and neighbors. The police were called and he was put in halfway overnight and charged with disorderly conduct. After he was released he walked home and was then informed that his girlfriend had filed a PFA against him. When police served him with the PFA he told them of his plan to by suicide. States he continues to feel suicidal with plan to jump from [address] as he feels "there's no way out". Describes knowledge of there being a ladder and door on the roof of the parking deck that he could use to access the 7th floor, stating his knowledge of this comes from his prior job working at [employer]. He feels very depressed and that he will end up homeless since his girlfriend filed a PFA and therefore feels there is no point to continuing with life stating "I just see brick johnson". He feels hopeless, has not been sleeping well and reports poor appetite. He continues to see his outpatient psychiatrist but has been using medication intermittently and at various doses including recently taking olanzapine 40mg per day and "a few Klonopin" when he started to feel manic but feels they had no effect. States he only relapsed on alcohol the day of the argument with his neighbors and girlfriend and otherwise had been sober for the last 4.5 months and had been attending AA. Of note his report of when he starting drinking again has varied between reports varying for the last week to only one day. Past Psychiatric History Current Psychiatric Diagnosis: suicidal ideation; bipolar 1 disorder Outpatient Services: Dr. Bryant psychiatry via telemedicine, [facility] recently [facility] Previous Psych Admissions: Most recently [facility] in July 2022, [facility] April-June 2021 for episode of wilbur, [facility] Mar 2021, [facility] x2 Do You Have Access To A Gun?: No History of Previous Suicide Attempt: Yes (5 years ago) Describe Attempts in the Past: cutting wrists 2017 Past Medication Trials: Depakote, Wellbutrin trial, Vraylar,Abilify, Olanzapine, no hx [place], no hx risperidone Past Head Trauma/Neuro History History of Concussion/Seizure: Yes ((hx concussions 3-4 times, hospitalized ) no hx seizures, last concussion 2016, all with LOC Allergies Allergy/AdvReac Type Severity Reaction Status Date / Time No Known Drug Allergies Allergy Verified 09/10/22 16:37 Home Medications Medication Instructions Recorded Confirmed Type atorvastatin 10 mg tablet 10 mg PO DAILY #30 tabs 09/10/22 01/01/23 Rx cariprazine 1.5 mg capsule 1.5 mg PO DAILY 01/01/23 01/01/23 History (Vraylar) clonazepam 1 mg tablet See Rx Instructions .Route .COMPLEX 01/01/23 01/01/23 History Family History Family History of: Suicide Completion Family Mental Health History Comment: both parents by suicide (mother had bipolar, by OD; father had alcohol use d/o/depressed) Alcohol History Hx of Alcohol Use Over the Past 12 Months: Yes (Pt sober since Jul 2022, relapsed 3 days ago) AUDIT Total Score: 17 Smoking Use Have You Smoked or Used Tobacco Products in the Last 30 Days: Yes tobacco type: cigarettes Smoking Status: Current every day smoker Smoking packs per day: 10 Substance History Hx of Prescription Med Misuse Over the Past 12 Months: Yes (klonopin 12/31) Hx of Over the Counter Med Misuse Over the Past 12 Months: No Hx of Inhalent Misuse Over the Past 12 Months: No Hx of Organic Substance Use Over the Past 12 Months: Yes (Marijuana) Hx of Illegal Substances/Street Drug Use Over Past 12 Months: No Problems as a Result of Past Substance Use: Relationships Ended and 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 Personal History Living Arrangements: Homeless Living Arrangements Comments: patient reports he was living with his girlfriend in a house for about 4.5 years but he cannot return there due to PFA Highest Grade Completed: High School Graduate Marital Status: Number Of Children: 1 Beliefs That Will Affect Care: None Current Legal Problems: Yes (disorderly conduct charge 2 days ago) Legal Problems Comment: recently was in halfway for DUI, girlfriend filed PFA, reports he has multiple upcoming court dates Hx Legal Problems: Yes (incarceration 2-3 years ago for PFA violation) Hx Traumatic Life Events: Yes Patient History Medical History (Updated 01/01/23 @ 16:19 by Jamaica Villanueva MD) Alcohol use disorder Anxiety Depression Depression with suicidal ideation Hyperlipidemia Other and unspecified hyperlipidemia Pre-diabetes Suicidal ideation Vitamin D deficiency, unspecified Surgical History S/P tonsillectomy Family History Denies family history of Ovarian cancer Prostate cancer Diabetes Myocardial infarction Breast cancer Colorectal cancer Cancer Stroke Social History Smoking Status: Current every day smoker Tobacco Type: Smokeless Tobacco (Dip or Chew) Age Started Using Tobacco: 22; packs per day: 0.5; Cigarettes Per Day: 10; Second Hand Exposure: No; Do You Dip or Chew Tobacco: No (10 years averaged 1 can per day); Hx Alcohol Use: No Hx Substance Use: No Preferred Language: Trinidadian Communication Ability: Effective Visual Impairment: No Limitations Hearing Ability: Normal Rewriter Required: No Beliefs That Will Affect Care: None marital status: Single current occupational status: employed 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 [employer] Feels Safe at Home: No Childhood Exposure to Second-Hand Smoke: Yes Dental Care, Regularly: No Physical Activity Frequency: Does not Exercise Seatbelt Use: always Gender Identity: Male Assistive Devices: None Review of Systems Review of Systems: All systems reviewed & are unremarkable except as noted in HPI & below (chronic left knee pain) Physical Exam Psychiatric: Orientation: alert and oriented x 3 Apperance: appropriately dressed and appropriately groomed Eye Contact: good eye contact Motor Behavior: no abnormal motor movements Speech: normal rate/rhythm/volume of speech Affect: + depressed affect and + anxious affect Mood: + depressed mood and + anxious mood Thought Process: goal directed thought process Thought Content: reality based without delusions Suicidal Thoughts: denies suicidal intent; + reports suicidal thoughts and + reports suicidal plan (for outside hospital to jump from parking deck, no plans for here) Homicidal Thoughts: denies homicidal thoughts Hallucinations: no auditory hallucinations and no visual hallucinations Cognition: recent memory grossly intact, remote memory grossly intact, attention grossly intact and language grossly intact Estimated Intelligence: consistent with education level Insight: + limited insight Judgment: + limited judgement Vital Signs (Past 24 Hours): Last Vital Signs Temp 37.0 C 01/01/23 14:26 Pulse 108 H 01/01/23 14:26 Resp 16 01/01/23 14:26 BP 144/96 H 01/01/23 14:26 Pulse Ox 95 12/31/22 22:36 O2 Del Method Room Air 12/31/22 22:36 Exam Statement: A physical exam was performed in the ED by Ani for the purposes of medical clearance. I accept that physical as correct and adequate for the purposes of the inpatient physical exam. Results & Data ([facility] [place]) Laboratory Results Laboratory Results - last 24 hr 12/31/22 12/31/22 12/31/22 17:25 17:25 17:25 WBC RBC Hgb Hct MCV MCH MCHC RDW Std Deviation RDW Coeff of [place] Plt Count MPV Immature Gran % (Auto) Neut % (Auto) Lymph % (Auto) [place] % (Auto) Eos % (Auto) Baso % (Auto) Neut # (Auto) Lymph # (Auto) [place] # (Auto) Eos # (Auto) Baso # (Auto) Immature Gran # (Auto) Sodium Potassium Chloride Carbon Dioxide Anion Gap BUN Creatinine Est Cr Clr Drug Dosing Est GFR ( Amer) Est GFR (Non-Af Amer) BUN/Creatinine Ratio Glucose Calcium Total Bilirubin AST ALT Alkaline Phosphatase Total Protein Albumin Globulin Albumin/Globulin Ratio TSH Urine Color Dark Yellow Urine Appearance Cloudy A Urine pH 5.0 Ur Specific [place] 1.026 Urine Protein 2+ H Urine Glucose (UA) Negative Urine Ketones Trace H Urine Blood Negative Urine Nitrite Negative Urine Bilirubin 1+ H Urine Urobilinogen Negative Ur Leukocyte Esterase Negative Urine WBC (Auto) 5-10 H Urine RBC (Auto) 5-10 H U Hyaline Cast (Auto) 1-5 U Epithel Cells (Auto) >30 H Urine Bacteria (Auto) Negative Salicylates Urine Opiates Screen Neg Ur Methadone, Qual Neg Acetaminophen Urine Barbiturates Neg Ur Phencyclidine (PCP) Neg U Amphetamin/Meth Scrn Neg MDMA (Ecstasy) Screen Neg U OH-Alprazolam Confrm Pending U Benzodiazepines Scrn Pos H 7-Amino Clonazepam Pending Ur Nordiazepam Confirm Pending U OH-ethylflurazepam Pending U Lorazepam Cnf GC/MS Pending U Oxazepam Confm GC/MS Pending Ur Temazepam Confirm Pending U OH-Triazolam Confirm Pending U OH-Midazolam Confirm Pending Ur Cocaine Metabolite Neg U Marijuana (THC) Screen Pos H U Marijuana THC Carboxy Pending Drug Screen Comment Pending Ethyl Alcohol mg/dL SARS-CoV-2, RNA, NAAT 12/31/22 12/31/22 12/31/22 17:30 18:10 18:10 WBC 21.39 H RBC 5.45 Hgb 17.4 Hct 48.9 MCV 89.7 MCH 31.9 MCHC 35.6 RDW Std Deviation 44.8 RDW Coeff of [place] 14.0 Plt Count 361 MPV 9.8 Immature Gran % (Auto) 1.0 Neut % (Auto) 76.6 Lymph % (Auto) 13.9 [place] % (Auto) 7.1 Eos % (Auto) 0.8 Baso % (Auto) 0.6 Neut # (Auto) 16.38 H Lymph # (Auto) 2.98 [place] # (Auto) 1.51 H Eos # (Auto) 0.18 Baso # (Auto) 0.12 Immature Gran # (Auto) 0.22 H Sodium 140 Potassium 4.2 Chloride 104 Carbon Dioxide 27 Anion Gap 9 BUN 15 Creatinine 0.93 Est Cr Clr Drug Dosing 127.1 Est GFR ( Amer) 110.6 Est GFR (Non-Af Amer) 95.4 BUN/Creatinine Ratio 16.1 Glucose 109 H Calcium 9.5 Total Bilirubin 0.6 AST 19 ALT 41 Alkaline Phosphatase 58 Total Protein 8.3 Albumin 5.0 Globulin 3.3 Albumin/Globulin Ratio 1.5 TSH Urine Color Urine Appearance Urine pH Ur Specific [place] Urine Protein Urine Glucose (UA) Urine Ketones Urine Blood Urine Nitrite Urine Bilirubin Urine Urobilinogen Ur Leukocyte Esterase Urine WBC (Auto) Urine RBC (Auto) U Hyaline Cast (Auto) U Epithel Cells (Auto) Urine Bacteria (Auto) Salicylates Urine Opiates Screen Ur Methadone, Qual Acetaminophen Urine Barbiturates Ur Phencyclidine (PCP) U Amphetamin/Meth Scrn MDMA (Ecstasy) Screen U OH-Alprazolam Confrm U Benzodiazepines Scrn 7-Amino Clonazepam Ur Nordiazepam Confirm U OH-ethylflurazepam U Lorazepam Cnf GC/MS U Oxazepam Confm GC/MS Ur Temazepam Confirm U OH-Triazolam Confirm U OH-Midazolam Confirm Ur Cocaine Metabolite U Marijuana (THC) Screen U Marijuana THC Carboxy Drug Screen Comment Ethyl Alcohol mg/dL SARS-CoV-2, RNA, NAAT NEGATIVE 12/31/22 12/31/22 12/31/22 18:10 18:10 18:10 WBC RBC Hgb Hct MCV MCH MCHC RDW Std Deviation RDW Coeff of [place] Plt Count MPV Immature Gran % (Auto) Neut % (Auto) Lymph % (Auto) [place] % (Auto) Eos % (Auto) Baso % (Auto) Neut # (Auto) Lymph # (Auto) [place] # (Auto) Eos # (Auto) Baso # (Auto) Immature Gran # (Auto) Sodium Potassium Chloride Carbon Dioxide Anion Gap BUN Creatinine Est Cr Clr Drug Dosing Est GFR ( Amer) Est GFR (Non-Af Amer) BUN/Creatinine Ratio Glucose Calcium Total Bilirubin AST ALT Alkaline Phosphatase Total Protein Albumin Globulin Albumin/Globulin Ratio TSH 1.376 Urine Color Urine Appearance Urine pH Ur Specific [place] Urine Protein Urine Glucose (UA) Urine Ketones Urine Blood Urine Nitrite Urine Bilirubin Urine Urobilinogen Ur Leukocyte Esterase Urine WBC (Auto) Urine RBC (Auto) U Hyaline Cast (Auto) U Epithel Cells (Auto) Urine Bacteria (Auto) Salicylates < 3.0 L Urine Opiates Screen Ur Methadone, Qual Acetaminophen < 3 L Urine Barbiturates Ur Phencyclidine (PCP) U Amphetamin/Meth Scrn MDMA (Ecstasy) Screen U OH-Alprazolam Confrm U Benzodiazepines Scrn 7-Amino Clonazepam Ur Nordiazepam Confirm U OH-ethylflurazepam U Lorazepam Cnf GC/MS U Oxazepam Confm GC/MS Ur Temazepam Confirm U OH-Triazolam Confirm U OH-Midazolam Confirm Ur Cocaine Metabolite U Marijuana (THC) Screen U Marijuana THC Carboxy Drug Screen Comment Ethyl Alcohol mg/dL < 10.0 SARS-CoV-2, RNA, NAAT Current Inpatient Medications Current Inpatient Medications: Current Inpatient Medications Acetaminophen (Acetaminophen 325 Mg Tab) 650 mg PO Q4H PRN PRN Reason: Headache or Minor Fever Stop: 01/30/23 22:07 Last Admin: 12/31/22 22:33 Dose: 650 mg Al Hydrox/Mg Hydrox/Simethicone (Aluminum/Magnesium Susp 30 Ml Udc) 30 ml PO Q4H PRN PRN Reason: GI Upset Stop: 01/30/23 22:07 Bismuth Subsalicylate (Bismuth Subsalicylate Liqd 236 Ml) 15 ml PO PRN PRN PRN Reason: Loose Stool Stop: 01/30/23 22:07 Folic Acid (Folic Acid 1 Mg Tab) 1 mg PO QAM DEONTE Stop: 01/31/23 13:44 Last Admin: 01/01/23 14:16 Dose: 1 mg Gabapentin (Gabapentin 600 Mg Tab) 600 mg PO Q24H DEONTE Stop: 01/05/23 04:01 Gabapentin (Gabapentin 600 Mg Tab) 600 mg PO Q12H DEONTE Stop: 01/04/23 04:01 Gabapentin (Gabapentin 600 Mg Tab) 600 mg PO Q8H DEONTE Stop: 01/03/23 04:01 Gabapentin (Gabapentin 600 Mg Tab) 600 mg PO Q6H DEONTE Stop: 01/02/23 04:01 Hydroxyzine HCl (Hydroxyzine Hcl 25 Mg Tab) 50 mg PO HSZ PRN PRN Reason: Insomnia Stop: 01/30/23 22:07 Hydroxyzine HCl (Hydroxyzine Hcl 25 Mg Tab) 25 mg PO Q4H PRN PRN Reason: Anxiety Stop: 01/30/23 22:07 Lorazepam (Lorazepam 1 Mg Tab) 1 mg PO UD PRN; Protocol PRN Reason: EtOH Withdrawal AWSS Score 6,7 Stop: 01/30/23 22:07 Last Admin: 01/01/23 12:07 Dose: 1 mg Lorazepam (Lorazepam 1 Mg Tab) 3 mg PO ONCE PRN; Protocol PRN Reason: EtOH Withdrawal AWSS Score 10 & above Lorazepam (Lorazepam 1 Mg Tab) 2 mg PO UD PRN; Protocol PRN Reason: EtOH Withdrawal AWSS Score 8,9 Stop: 01/30/23 22:07 Magnesium Hydroxide (Magnesium Hydroxide Susp 30 Ml Udc) 30 ml PO DAILY PRN PRN Reason: Constipation Stop: 01/30/23 22:07 Miscellaneous (Remove Nicoderm Patch) 1 each N/A DAILY@0859 [facility] Stop: 01/31/23 08:58 Last Admin: 01/01/23 09:40 Dose: Not Given Nicotine (Nicotine 14 Mg/24 Hr Patch) [facility] Stop: 01/31/23 08:59 Last Admin: 01/01/23 09:39 Dose: 14 mg Nicotine Polacrilex (Nicotine Polacrilex 2 Mg Gum) 2 piece MT PRN PRN PRN Reason: Nicotine Withdrawal Stop: 01/30/23 22:07 Last Admin: 01/01/23 14:17 Dose: 2 piece Olanzapine (Olanzapine 5 Mg Tablet) 15 mg PO HS [facility] Stop: 01/31/23 21:59 Sodium Chloride (Sodium Chloride 0.65% Na Soln 45 Ml ([place])) 1 - 2 sprays NA PRN PRN PRN Reason: Nasal Dryness/Congestion Stop: 01/30/23 22:07 Thiamine HCl (Thiamine Hcl 100 Mg Tab) 100 mg PO QAM [facility] Stop: 01/31/23 13:44 Last Admin: 01/01/23 14:16 Dose: 100 mg
[2023-01-01] MEDS: GABAPENTIN 600 MG TAB PO SCH (21:11)
[2023-01-01] MEDS ORDERED: OLANZapine 5 MG TABLET PO SCH (22:00)
[2023-01-02] MEDS: GABAPENTIN 600 MG TAB PO SCH ×3 (04:02→20:34)
[2023-01-02 08:20] LABS: Chol HDL Ratio 7.4 (0-5)
[2023-01-02 08:25] LABS: Estimated Average Glucose 120 mg/dl; Hemoglobin A1C 5.8 % (4.5-5.6)
[2023-01-02] MEDS: FOLIC ACID 1 MG TAB PO SCH (08:33)
[2023-01-02] MEDS: ATORVASTATIN 10 MG TAB PO SCH (08:33)
[2023-01-02] MEDS: NICOTINE 14 MG/24 HR PATCH TD SCH (08:33)
[2023-01-02] MEDS: THIAMINE HCL 100 MG TAB PO SCH (08:33)
--- NOTE | 2023-01-02 08:54 | Psychiatric Progress Note ---
Date of Service January 02, 2023 Impression / Recommendations Impression Anamaria is a 52 year old man with a history of BPAD, PTSD and alcohol use disorder who was admitted for worsening depression with SI with plan and intent. Diagnostically consistent with unspecified mood disorder with differential including depressive episode of bipolar disorder vs substance-induced/withdrawal depression. He is deemed in need of psychiatric hospitalization for diagnostic clarification, safety and stabilization, medication management and development of further coping skills. 01/02/2023: Ongoing severe depression and anxiety with SI, continues to score on AWSS. Reviewed fasting labs notable for elevated TGs, cholesterol, LDL as well as elevated fasting glucose and HbA1c of 5.8%. He consents to starting metformin for elevated HbA1c and to help with antipsychotic induced weight gain. Discussed mood stabilizer medication options. He consents to starting risperidone with eventual plan if tolerated to start Invega [facility]. He has gained a lot of weight with olanzapine so prefers to discontinue this. Reviewed side effects for risperidone including but not limited to: decreased seizure threshold, movement (TD, NMS), cardiac (QTc prolongation), and metabolic (stroke, insulin resistance) and necessity for routine lipid and glucose labwork and AIMS done with score of 0. (1) Bipolar 1 disorder, mixed, severe: (2) Alcohol use disorder: (3) Benzodiazepine misuse: (4) PTSD (post-traumatic stress disorder): Plan 01/02/2023: Stop olanzapine. Start risperidone 0.5mg qAM and 1 mg HS. Start metformin ER 500mg PM. 01/01/2023: The patient was admitted to the [facility] ([facility] health unit) on q15 min checks (behavioral with suicide precautions) for safety. The patient will participate in group, recreational, and milieu therapies and will be offered additional individual and family sessions as clinically appropriate. -Olanzapine 15mg HS for mood stabilization -AWSS with thiamine, folic acid, gabapentin and ativan as needed for scoring -Goal of potentially moving to [facility] such as Invega given intermittent adherence with oral medications -Fasting lipid panel and glucose tomorrow AM Inventory Assets Strengths: good rapport with psychiatrist, willing to get treatment Needs: safety and stabilization, medication adjustment, additional coping skills, increased outpatient services Suicide Risk Level Suicide Risk Level: High-Moderate (q15 min suicide checks) (severe depression with SI with plan prior to admission but feels safe in the hospital, able to safety contract and agrees to let nursing/staff know should they develop plan, intent or feel unable to remain safe. ) Risk Factors Assessment Male: Yes : Yes Do You Have Access To A Gun?: No Health Problems: No Mental Health Diagnoses: Yes Substance Use Disorders: Yes Previous Attempt: Yes Family History of Suicide: Yes Previous Psychiatric Hospitalization: Yes Protective Factors Assessment Employed: No Good Rapport with Provider: Yes Interval History Identifying Information ANAMARIA KINGSTON is a 52-year-old M who currently lives in [place] with his girlfriend, has a history of BPAD, PTSD, alcohol use disorder, and was admitted on 12/31/22 22:08 on a 201 voluntary commitment for SI with plans of jumping from a local parking garage. Chief Complaint "I got realy panicked after thinking I misread the dates on my court papers". Review of Systems Sleep Information Total Hours of Sleep: 6 Sleep Comments: Meal Information Percent Meal Consumed - Breakfast: 100 Percent Meal Consumed - Lunch: 80 Percent Meal Consumed - Dinner: 100 Subjective Subjective Patient was seen & assessed and interval progress reviewed with treatment team nursing and social work. Continues to feel very depressed and continues to have SI with plan for outside the hospital. Scoring intermittently on AWSS. [place] more anxious this afternoon. Notes at times he finds himself ruminating about calling his ex-girlfriend but knows he cannot do this with the PFA in place. Physical Exam Psychiatric Orientation: alert and oriented x 3 Apperance: appropriately dressed and appropriately groomed Eye Contact: good eye contact Motor Behavior: no abnormal motor movements Speech: normal rate/rhythm/volume of speech Affect: + depressed affect and + anxious affect Mood: + depressed mood and + anxious mood Thought Process: goal directed thought process Thought Content: reality based without delusions Suicidal Thoughts: denies suicidal intent; + reports suicidal thoughts and + reports suicidal plan (for outside hospital to jump from parking deck, no plans for here) Homicidal Thoughts: denies homicidal thoughts Hallucinations: no auditory hallucinations and no visual hallucinations Cognition: recent memory grossly intact, remote memory grossly intact, attention grossly intact and language grossly intact Estimated Intelligence: consistent with education level Insight: + limited insight Judgment: + limited judgement Vital Signs (Past 24 Hours) Last Vital Signs Temp 36.4 C L 01/02/23 06:29 Pulse 82 01/02/23 06:29 Resp 18 06/15/23 06:29 BP 127/89 01/02/23 06:29 Pulse Ox 95 12/31/22 22:36 O2 Del Method Room Air 12/31/22 22:36 Results & Data ([facility]) Laboratory Results Laboratory Results - last 24 hr 01/02/23 01/02/23 07:09 07:09 Fasting Glucose 106 H Estimat Average Glucose 120 Hemoglobin A1c 5.8 H Triglycerides 223 H Cholesterol 244 H LDL Cholesterol, Calc 166 VLDL Cholesterol, Calc 45 H HDL Cholesterol 33 Cholesterol/HDL Ratio 7.4 H Current Inpatient Medications Current Inpatient Medications: Current Inpatient Medications Acetaminophen (Acetaminophen 325 Mg Tab) 650 mg PO Q4H PRN PRN Reason: Headache or Minor Fever Stop: 01/30/23 22:07 Last Admin: 12/31/22 22:33 Dose: 650 mg Al Hydrox/Mg Hydrox/Simethicone (Aluminum/Magnesium Susp 30 Ml Udc) 30 ml PO Q4H PRN PRN Reason: GI Upset Stop: 01/30/23 22:07 Atorvastatin Calcium (Atorvastatin 10 Mg Tab) 10 mg PO DAILY DEONTE Stop: 02/01/23 08:59 Last Admin: 01/02/23 08:33 Dose: 10 mg Bismuth Subsalicylate (Bismuth Subsalicylate Liqd 236 Ml) 15 ml PO PRN PRN PRN Reason: Loose Stool Stop: 01/30/23 22:07 Folic Acid (Folic Acid 1 Mg Tab) 1 mg PO QAM DEONTE Stop: 01/31/23 13:44 Last Admin: 01/02/23 08:33 Dose: 1 mg Gabapentin (Gabapentin 600 Mg Tab) 600 mg PO Q24H DEONTE Stop: 01/05/23 04:01 Gabapentin (Gabapentin 600 Mg Tab) 600 mg PO Q12H DEONTE Stop: 01/04/23 04:01 Gabapentin (Gabapentin 600 Mg Tab) 600 mg PO Q8H DEONTE Stop: 01/03/23 04:01 Hydroxyzine HCl (Hydroxyzine Hcl 25 Mg Tab) 50 mg PO HSZ PRN PRN Reason: Insomnia Stop: 01/30/23 22:07 Hydroxyzine HCl (Hydroxyzine Hcl 25 Mg Tab) 25 mg PO Q4H PRN PRN Reason: Anxiety Stop: 01/30/23 22:07 Lorazepam (Lorazepam 1 Mg Tab) 1 mg PO UD PRN; Protocol PRN Reason: EtOH Withdrawal AWSS Score 6,7 Stop: 01/30/23 22:07 Last Admin: 01/01/23 12:07 Dose: 1 mg Lorazepam (Lorazepam 1 Mg Tab) 3 mg PO ONCE PRN; Protocol PRN Reason: EtOH Withdrawal AWSS Score 10 & above Lorazepam (Lorazepam 1 Mg Tab) 2 mg PO UD PRN; Protocol PRN Reason: EtOH Withdrawal AWSS Score 8,9 Stop: 01/30/23 22:07 Magnesium Hydroxide (Magnesium Hydroxide Susp 30 Ml Udc) 30 ml PO DAILY PRN PRN Reason: Constipation Stop: 01/30/23 22:07 Miscellaneous (Remove Nicoderm Patch) 1 each N/A DAILY@[facility] Stop: 01/31/23 08:58 Last Admin: 01/02/23 08:34 Dose: 1 each Nicotine (Nicotine 14 Mg/24 Hr Patch) 14 mg TD QAM DEONTE Stop: 01/31/23 08:59 Last Admin: 01/02/23 08:33 Dose: 14 mg Nicotine Polacrilex (Nicotine Polacrilex 2 Mg Gum) 2 piece MT PRN PRN PRN Reason: Nicotine Withdrawal Stop: 01/30/23 22:07 Last Admin: 01/01/23 18:57 Dose: 2 piece Olanzapine (Olanzapine 5 Mg Tablet) 15 mg PO HS DEONTE Stop: 01/31/23 21:59 Last Admin: 01/01/23 21:12 Dose: 15 mg Sodium Chloride (Sodium Chloride 0.65% Na Soln 45 Ml ([place])) 1 - 2 sprays NA PRN PRN PRN Reason: Nasal Dryness/Congestion Stop: 01/30/23 22:07 Thiamine HCl (Thiamine Hcl 100 Mg Tab) 100 mg PO QAM DEONTE Stop: 01/31/23 13:44 Last Admin: 01/02/23 08:33 Dose: 100 mg Mental Health & Subst Abuse Tx Therapist Name of Therapist: Nelida at [facility]; she left seeing someone new doesn't know name Date of Therapist Appointment: Doesn't know, does not have his phone with him Trauma Nurse Name of Trauma Nurse: None Post Discharge Appointments Primary Care Physician Name Of Family Doctor/PCP: Angeline
[2023-01-02] MEDS: NICOTINE POLACRILEX 2 MG GUM MT PRN ×2 (12:59→18:11)
[2023-01-02] MEDS: ACETAMINOPHEN 325 MG TAB PO PRN (14:02)
[2023-01-02] MEDS: risperiDONE 1 MG TABLET PO SCH (22:26)
[2023-01-03] MEDS: GABAPENTIN 600 MG TAB PO SCH ×2 (04:48→16:30)
[2023-01-03] MEDS: NICOTINE 14 MG/24 HR PATCH TD SCH (06:53)
[2023-01-03] MEDS: THIAMINE HCL 100 MG TAB PO SCH (08:43)
[2023-01-03] MEDS: FOLIC ACID 1 MG TAB PO SCH (08:43)
[2023-01-03] MEDS: ATORVASTATIN 10 MG TAB PO SCH (08:43)
[2023-01-03] MEDS: risperiDONE 0.5 MG TABLET PO SCH (08:43)
--- NOTE | 2023-01-03 08:59 | Psychiatric Progress Note ---
Date of Service January 03, 2023 Impression / Recommendations Impression Anamaria is a 52 year old man with a history of BPAD, PTSD and alcohol use disorder who was admitted for worsening depression with SI with plan and intent. Diagnostically consistent with unspecified mood disorder with differential including depressive episode of bipolar disorder vs substance-induced/withdrawal depression. He is deemed in need of psychiatric hospitalization for diagnostic clarification, safety and stabilization, medication management and development of further coping skills. 01/03/2023: Ongoing severe depression and anxiety with SI. Ongoing AWSS. Tolerating initial doses of risperidone though experiencing some side effects so will continue to monitor, could also be contribution from gabapentin being used short-term for seizure prophylaxis for withdrawal period. Metformin to start tonight. (1) Bipolar 1 disorder, mixed, severe: (2) Alcohol use disorder: (3) Benzodiazepine misuse: (4) PTSD (post-traumatic stress disorder): Plan 01/03/2023: Starting metformin ER 500mg QDD tonight. Continue risperidone 0.5mg qAM and 1 mg HS. Continue AWSS with gabapentin taper. 01/02/2023: Stop olanzapine. Start risperidone 0.5mg qAM and 1 mg HS. 01/01/2023: The patient was admitted to the [facility] ([facility] health unit) on q15 min checks (behavioral with suicide precautions) for safety. The patient will participate in group, recreational, and milieu therapies and will be offered additional individual and family sessions as clinically appropriate. -Olanzapine 15mg HS for mood stabilization -AWSS with thiamine, folic acid, gabapentin and ativan as needed for scoring -Goal of potentially moving to SPARROW such as Invega given intermittent adherence with oral medications -Fasting lipid panel and glucose tomorrow AM Inventory Assets Strengths: good rapport with psychiatrist, willing to get treatment Needs: safety and stabilization, medication adjustment, additional coping skills, increased outpatient services Suicide Risk Level Suicide Risk Level: High-Moderate (q15 min suicide checks) (severe depression with SI with plan prior to admission but feels safe in the hospital, able to safety contract and agrees to let nursing/staff know should they develop plan, intent or feel unable to remain safe. ) Risk Factors Assessment Male: Yes : Yes Do You Have Access To A Gun?: No Health Problems: No Mental Health Diagnoses: Yes Substance Use Disorders: Yes Previous Attempt: Yes Family History of Suicide: Yes Previous Psychiatric Hospitalization: Yes Protective Factors Assessment Employed: No Good Rapport with Provider: Yes Interval History Identifying Information ANAMARIA KINGSTON is a 52-year-old M who currently lives in [place] with his girlfriend, has a history of BPAD, PTSD, alcohol use disorder, and was admitted on 12/31/22 22:08 on a 201 voluntary commitment for SI with plans of jumping from a local parking garage. Chief Complaint "Why can't I just ". Review of Systems Sleep Information Total Hours of Sleep: 6 Meal Information Percent Meal Consumed - Breakfast: 100 Percent Meal Consumed - Lunch: 100 Percent Meal Consumed - Dinner: 100 Subjective Subjective Patient was seen & assessed and interval progress reviewed with treatment team nursing and social work. Attending groups but very hopeless. Feels his mood has been "up and down" due to "grappling with things". Discusses questioning his relationship status given tumultuous past and now PFA as well as overwhelmed as "I just have so much to deal with". Tolerating initiation of risperidone but did feel a "a little less coordinated" and "more off balance" today but gait is stable. Continues to have intense SI with plan for outside the hospital. Continues to feel safe in the hospital without any plan here. Interested in residential substance use treatment once psychiatrically stable. Physical Exam Psychiatric Orientation: alert and oriented x 3 Apperance: appropriately dressed and appropriately groomed Eye Contact: good eye contact Motor Behavior: no abnormal motor movements Speech: normal rate/rhythm/volume of speech Affect: + depressed affect and + anxious affect Mood: + depressed mood and + anxious mood Thought Process: goal directed thought process Thought Content: reality based without delusions Suicidal Thoughts: denies suicidal intent; + reports suicidal thoughts and + reports suicidal plan (for outside hospital to jump from parking deck, no plans for here) Homicidal Thoughts: denies homicidal thoughts Hallucinations: no auditory hallucinations and no visual hallucinations Cognition: recent memory grossly intact, remote memory grossly intact, attention grossly intact and language grossly intact Estimated Intelligence: consistent with education level Insight: + limited insight Judgment: + limited judgement Vital Signs (Past 24 Hours) Last Vital Signs Temp 36.5 C 01/03/23 06:41 Pulse 90 01/03/23 06:42 Resp 16 01/03/23 06:41 BP 134/94 01/03/23 06:42 Pulse Ox 95 12/31/22 22:36 O2 Del Method Room Air 12/31/22 22:36 Results & Data (U) Current Inpatient Medications Current Inpatient Medications: Current Inpatient Medications Acetaminophen (Acetaminophen 325 Mg Tab) 650 mg PO Q4H PRN PRN Reason: Headache or Minor Fever Stop: 01/30/23 22:07 Last Admin: 01/02/23 14:02 Dose: 650 mg Al Hydrox/Mg Hydrox/Simethicone (Aluminum/Magnesium Susp 30 Ml Udc) 30 ml PO Q4H PRN PRN Reason: GI Upset Stop: 01/30/23 22:07 Atorvastatin Calcium (Atorvastatin 10 Mg Tab) 10 mg PO DAILY DEONTE Stop: 02/01/23 08:59 Last Admin: 01/03/23 08:43 Dose: 10 mg Bismuth Subsalicylate (Bismuth Subsalicylate Liqd 236 Ml) 15 ml PO PRN PRN PRN Reason: Loose Stool Stop: 01/30/23 22:07 Folic Acid (Folic Acid 1 Mg Tab) 1 mg PO QAM [facility] Stop: 01/31/23 13:44 Last Admin: 01/03/23 08:43 Dose: 1 mg Gabapentin (Gabapentin 600 Mg Tab) 600 mg PO Q24H DEONTE Stop: 01/05/23 04:01 Gabapentin (Gabapentin 600 Mg Tab) 600 mg PO Q12H DEONTE Stop: 01/04/23 04:01 Hydroxyzine HCl (Hydroxyzine Hcl 25 Mg Tab) 50 mg PO HSZ PRN PRN Reason: Insomnia Stop: 01/30/23 22:07 Hydroxyzine HCl (Hydroxyzine Hcl 25 Mg Tab) 25 mg PO Q4H PRN PRN Reason: Anxiety Stop: 01/30/23 22:07 Last Admin: 01/02/23 13:35 Dose: 25 mg Lorazepam (Lorazepam 1 Mg Tab) 1 mg PO UD PRN; Protocol PRN Reason: EtOH Withdrawal AWSS Score 6,7 Stop: 01/30/23 22:07 Last Admin: 01/01/23 12:07 Dose: 1 mg Lorazepam (Lorazepam 1 Mg Tab) 3 mg PO ONCE PRN; Protocol PRN Reason: EtOH Withdrawal AWSS Score 10 & above Lorazepam (Lorazepam 1 Mg Tab) 2 mg PO UD PRN; Protocol PRN Reason: EtOH Withdrawal AWSS Score 8,9 Stop: 01/30/23 22:07 Magnesium Hydroxide (Magnesium Hydroxide Susp 30 Ml Udc) 30 ml PO DAILY PRN PRN Reason: Constipation Stop: 01/30/23 22:07 Metformin HCl (Metformin Hcl Er 500 Mg Tabcr) 500 mg PO QDD [facility] Stop: 02/02/23 17:44 Miscellaneous (Remove Nicoderm Patch) 1 each N/A DAILY@0859 [facility] Stop: 01/31/23 08:58 Last Admin: 01/03/23 06:53 Dose: 1 each Nicotine (Nicotine 14 Mg/24 Hr Patch) 14 mg TD QAM [facility] Stop: 01/31/23 08:59 Last Admin: 01/03/23 06:53 Dose: 14 mg Nicotine Polacrilex (Nicotine Polacrilex 2 Mg Gum) 2 piece MT PRN PRN PRN Reason: Nicotine Withdrawal Stop: 01/30/23 22:07 Last Admin: 01/02/23 18:11 Dose: 2 piece Risperidone (Risperidone 1 Mg Tablet) 1 mg PO HS [facility] Stop: 02/01/23 21:59 Last Admin: 01/02/23 22:26 Dose: 1 mg Risperidone (Risperidone 0.5 Mg Tablet) 0.5 mg PO QAM [facility] Stop: 02/02/23 08:59 Last Admin: 01/03/23 08:43 Dose: 0.5 mg Sodium Chloride (Sodium Chloride 0.65% Na Soln 45 Ml ([place])) 1 - 2 sprays NA PRN PRN PRN Reason: Nasal Dryness/Congestion Stop: 01/30/23 22:07 Thiamine HCl (Thiamine Hcl 100 Mg Tab) 100 mg PO QAM [facility] Stop: 01/31/23 13:44 Last Admin: 01/03/23 08:43 Dose: 100 mg Mental Health & Subst Abuse Tx Therapist Name of Therapist: Nelida at [facility]; she left seeing someone new doesn't know name Date of Therapist Appointment: Doesn't know, does not have his phone with him Hospitality Workers Name of Hospitality Workers: None Post Discharge Appointments Primary Care Physician Name Of Family Doctor/PCP: Angeline
[2023-01-03] MEDS: NICOTINE POLACRILEX 2 MG GUM MT PRN ×3 (09:08→18:08)
[2023-01-03 10:17] LABS: 7-Aminoclonaz, Confirm >2000 ng/mL (<25); Hydro-Alp Ur, GC/MS NEGATIVE ng/mL (<25); Hydroxyethylflurazepam, Conf NEGATIVE ng/mL (<50); Hydroxymidazolam Ur, GC/MS NEGATIVE ng/mL (<50); Hydroxytriazolam NEGATIVE ng/mL (<50); Lorazepam, Ur GC/MS NEGATIVE ng/mL (<50); Marijuana Quant, GCMS Urine 384 ng/mL (<5); Nordiazepam, Confirm NEGATIVE ng/mL (<50); Oxazepam Ur, GC/MS NEGATIVE ng/mL (<50); Temazepam, Confirm NEGATIVE ng/mL (<50)
[2023-01-03] MEDS: metFORMIN HCL ER 500 MG TABCR PO SCH (17:19)
[2023-01-03] MEDS: risperiDONE 1 MG TABLET PO SCH (21:02)
[2023-01-04] MEDS: GABAPENTIN 600 MG TAB PO SCH (03:58)
[2023-01-04] MEDS: NICOTINE POLACRILEX 2 MG GUM MT PRN ×3 (06:34→17:35)
[2023-01-04] MEDS: NICOTINE 14 MG/24 HR PATCH TD SCH (08:49)
[2023-01-04] MEDS: THIAMINE HCL 100 MG TAB PO SCH (08:49)
[2023-01-04] MEDS: FOLIC ACID 1 MG TAB PO SCH (08:50)
[2023-01-04] MEDS: risperiDONE 0.5 MG TABLET PO SCH (08:50)
[2023-01-04] MEDS: ATORVASTATIN 10 MG TAB PO SCH (08:50)
--- NOTE | 2023-01-04 10:03 | Psychiatric Progress Note ---
Date of Service January 04, 2023 Impression / Recommendations Impression As per Dr. Villanueva: Anamaria is a 52 year old man with a history of BPAD, PTSD and alcohol use disorder who was admitted for worsening depression with SI with plan and intent. Diagnostically consistent with unspecified mood disorder with differential including depressive episode of bipolar disorder vs substance- induced/withdrawal depression. He is deemed in need of psychiatric hospitalization for diagnostic clarification, safety and stabilization, medication management and development of further coping skills. 01/04/2023: ongoing SI. (1) Bipolar 1 disorder, mixed, severe: (2) Alcohol use disorder: (3) Benzodiazepine misuse: (4) PTSD (post-traumatic stress disorder): Plan 01/04/2023: patient desires a trial of melatonin as Risperdal less sedating than Zyprexa, does desire SPARROW, need to determine coverage for SPARROW Invega. 01/03/2023: Starting metformin ER 500mg QDD tonight. Continue risperidone 0.5mg qAM and 1 mg HS. Continue AWSS with gabapentin taper. 01/02/2023: Stop olanzapine. Start risperidone 0.5mg qAM and 1 mg HS. 01/01/2023: The patient [facility] on q15 min checks (behavioral with suicide precautions) for safety. The patient will participate in group, recreational, and milieu therapies and will be offered additional individual and family sessions as clinically appropriate. -Olanzapine 15mg HS for mood stabilization -AWSS with thiamine, folic acid, gabapentin and ativan as needed for scoring -Goal of potentially moving to SPARROW such as Invega given intermittent adherence with oral medications -Fasting lipid panel and glucose tomorrow AM Inventory Assets Strengths: good rapport with psychiatrist, willing to get treatment Needs: safety and stabilization, medication adjustment, additional coping skills, increased outpatient services Suicide Risk Level Suicide Risk Level: High-Moderate (q15 min suicide checks) Risk Factors Assessment Male: Yes : Yes Do You Have Access To A Gun?: No Health Problems: No Mental Health Diagnoses: Yes Substance Use Disorders: Yes Previous Attempt: Yes Family History of Suicide: Yes Previous Psychiatric Hospitalization: Yes Protective Factors Assessment Employed: No Good Rapport with Provider: Yes Interval History Identifying Information ANAMARIA KINGSTON is a 52-year-old M who currently lives in [place] with his girlfriend, has a history of BPAD, PTSD, alcohol use disorder, and was admitted on 12/31/22 22:08 on a 201 voluntary commitment for SI with plans of jumping from a local parking garage. Chief Complaint "I have alot of racing thoughts" Review of Systems Sleep Information Total Hours of Sleep: 6.5 Meal Information Percent Meal Consumed - Breakfast: 100 Percent Meal Consumed - Lunch: 100 Percent Meal Consumed - Dinner: 100 Subjective Subjective Patient was seen & assessed and interval progress reviewed with nursing. presents as rather slowed. reports still having same suicidal thoughts (none he would act on here). Maintains belief that girlfriend will take him back. Has limited supports. Ambivalent about rehab. Worried about pending legal. Physical Exam Psychiatric Orientation: alert and oriented x 3 Apperance: + disheveled Eye Contact: good eye contact Motor Behavior: no abnormal motor movements Speech: normal rate/rhythm/volume of speech Affect: + depressed affect and + anxious affect Mood: + depressed mood and + anxious mood Thought Process: goal directed thought process Thought Content: reality based without delusions Suicidal Thoughts: denies suicidal intent; + reports suicidal thoughts and + reports suicidal plan (for outside hospital to jump from parking deck, no plans for here) Homicidal Thoughts: denies homicidal thoughts Hallucinations: no auditory hallucinations and no visual hallucinations Cognition: recent memory grossly intact, remote memory grossly intact, attention grossly intact and language grossly intact Estimated Intelligence: consistent with education level Insight: + limited insight Judgment: + limited judgement Vital Signs (Past 24 Hours) Last Vital Signs Temp 36.7 C 01/04/23 06:36 Pulse 91 H 01/04/23 06:37 Resp 16 01/04/23 06:36 BP 124/85 01/04/23 06:37 Pulse Ox 95 12/31/22 22:36 O2 Del Method Room Air 12/31/22 22:36 Results & Data ([facility]) Laboratory Results Laboratory Results - last 24 hr 12/31/22 17:25 U OH-Alprazolam Confrm NEGATIVE 7-Amino Clonazepam >2000 H Ur Nordiazepam Confirm NEGATIVE U OH-ethylflurazepam NEGATIVE U Lorazepam Cnf GC/MS NEGATIVE U Oxazepam Confm GC/MS NEGATIVE Ur Temazepam Confirm NEGATIVE U OH-Triazolam Confirm NEGATIVE U OH-Midazolam Confirm NEGATIVE U Marijuana THC Carboxy 384 H Drug Screen Comment SEE NOTE Current Inpatient Medications Current Inpatient Medications: Current Inpatient Medications Acetaminophen (Acetaminophen 325 Mg Tab) 650 mg PO Q4H PRN PRN Reason: Headache or Minor Fever Stop: 01/30/23 22:07 Last Admin: 01/02/23 14:02 Dose: 650 mg Al Hydrox/Mg Hydrox/Simethicone (Aluminum/Magnesium Susp 30 Ml Udc) 30 ml PO Q4H PRN PRN Reason: GI Upset Stop: 01/30/23 22:07 Atorvastatin Calcium (Atorvastatin 10 Mg Tab) 10 mg PO DAILY [facility] Stop: 02/01/23 08:59 Last Admin: 01/04/23 08:50 Dose: 10 mg Bismuth Subsalicylate (Bismuth Subsalicylate Liqd 236 Ml) 15 ml PO PRN PRN PRN Reason: Loose Stool Stop: 01/30/23 22:07 Folic Acid (Folic Acid 1 Mg Tab) 1 mg PO QAM [facility] Stop: 01/31/23 13:44 Last Admin: 01/04/23 08:50 Dose: 1 mg Gabapentin (Gabapentin 600 Mg Tab) 600 mg PO Q24H [facility] Stop: 01/05/23 04:01 Last Admin: 01/03/23 16:17 Dose: 600 mg Hydroxyzine HCl (Hydroxyzine Hcl 25 Mg Tab) 50 mg PO HSZ PRN PRN Reason: Insomnia Stop: 01/30/23 22:07 Hydroxyzine HCl (Hydroxyzine Hcl 25 Mg Tab) 25 mg PO Q4H PRN PRN Reason: Anxiety Stop: 01/30/23 22:07 Last Admin: 01/02/23 13:35 Dose: 25 mg Lorazepam (Lorazepam 1 Mg Tab) 1 mg PO UD PRN; Protocol PRN Reason: EtOH Withdrawal AWSS Score 6,7 Stop: 01/30/23 22:07 Last Admin: 01/01/23 12:07 Dose: 1 mg Lorazepam (Lorazepam 1 Mg Tab) 3 mg PO ONCE PRN; Protocol PRN Reason: EtOH Withdrawal AWSS Score 10 & above Lorazepam (Lorazepam 1 Mg Tab) 2 mg PO UD PRN; Protocol PRN Reason: EtOH Withdrawal AWSS Score 8,9 Stop: 01/30/23 22:07 Magnesium Hydroxide (Magnesium Hydroxide Susp 30 Ml Udc) 30 ml PO DAILY PRN PRN Reason: Constipation Stop: 01/30/23 22:07 Metformin HCl (Metformin Hcl Er 500 Mg Tabcr) 500 mg PO QDD [facility] Stop: 02/02/23 17:44 Last Admin: 01/03/23 17:19 Dose: 500 mg Miscellaneous (Remove Nicoderm Patch) 1 each N/A DAILY@0859 [facility] Stop: 01/31/23 08:58 Last Admin: 01/04/23 08:49 Dose: 1 each Nicotine (Nicotine 14 Mg/24 Hr Patch) 14 mg TD QAM [facility] Stop: 01/31/23 08:59 Last Admin: 01/04/23 08:49 Dose: 14 mg Nicotine Polacrilex (Nicotine Polacrilex 2 Mg Gum) 2 piece MT PRN PRN PRN Reason: Nicotine Withdrawal Stop: 01/30/23 22:07 Last Admin: 01/04/23 06:34 Dose: 2 piece Risperidone (Risperidone 1 Mg Tablet) 1 mg PO HS [facility] Stop: 02/01/23 21:59 Last Admin: 01/03/23 21:02 Dose: 1 mg Risperidone (Risperidone 0.5 Mg Tablet) 0.5 mg PO QAM [facility] Stop: 02/02/23 08:59 Last Admin: 01/04/23 08:50 Dose: 0.5 mg Sodium Chloride (Sodium Chloride 0.65% Na Soln 45 Ml ([place])) 1 - 2 sprays NA PRN PRN PRN Reason: Nasal Dryness/Congestion Stop: 01/30/23 22:07 Thiamine HCl (Thiamine Hcl 100 Mg Tab) 100 mg PO QAM [facility] Stop: 01/31/23 13:44 Last Admin: 01/04/23 08:49 Dose: 100 mg Mental Health & Subst Abuse Tx Therapist Name of Therapist: Nelida at [place]; she left seeing someone new doesn't know name Date of Therapist Appointment: Doesn't know, does not have his phone with him Dryer Feeder Name of Dryer Feeder: None Post Discharge Appointments Primary Care Physician Name Of Family Doctor/PCP: Angeline
[2023-01-04] MEDS: metFORMIN HCL ER 500 MG TABCR PO SCH (17:30)
[2023-01-04] MEDS: MELATONIN 3 MG TAB PO SCH (22:55)
[2023-01-04] MEDS: risperiDONE 1 MG TABLET PO SCH (22:55)
[2023-01-05] MEDS ORDERED: GABAPENTIN 600 MG TAB PO SCH (04:00)
[2023-01-05] MEDS: NICOTINE 14 MG/24 HR PATCH TD SCH (08:40)
[2023-01-05] MEDS: ATORVASTATIN 10 MG TAB PO SCH (08:40)
[2023-01-05] MEDS: risperiDONE 0.5 MG TABLET PO SCH (08:40)
[2023-01-05] MEDS: THIAMINE HCL 100 MG TAB PO SCH (08:40)
[2023-01-05] MEDS: FOLIC ACID 1 MG TAB PO SCH (08:40)
[2023-01-05] MEDS: SERTRALINE HCL 50 MG TABLET PO SCH (11:26)
--- NOTE | 2023-01-05 12:19 | Psychiatric Progress Note ---
Date of Service January 05, 2023 Impression / Recommendations Impression As per Dr. Villanueva: Anamaria is a 52 year old man with a history of BPAD, PTSD and alcohol use disorder who was admitted for worsening depression with SI with plan and intent. Diagnostically consistent with unspecified mood disorder with differential including depressive episode of bipolar disorder vs substance- induced/withdrawal depression. He is deemed in need of psychiatric hospitalization for diagnostic clarification, safety and stabilization, medication management and development of further coping skills. MNPR due to snoring, poor sleep, hx of poor tolerance for roommate (threatening last stay). 01/05/2023: ongoing SI but some improvement in sleep, more hopeful. (1) Bipolar 1 disorder, mixed, severe: (2) Alcohol use disorder: (3) Benzodiazepine misuse: (4) PTSD (post-traumatic stress disorder): Plan 01/05/2023: hydroxyzine scheduled hs with melatonin as both effective overnight, restart Zoloft 50 mg daily, likely transition to Invega PO tomorrow in anticipation of conversion to SPARROW, $0 copay per [facility] pharmacy. 01/04/2023: patient desires a trial of melatonin as Risperdal less sedating than Zyprexa, does desire SPARROW, need to determine coverage for SPARROW Invega. 01/03/2023: Starting metformin ER 500mg QDD tonight. Continue risperidone 0.5mg qAM and 1 mg HS. Continue AWSS with gabapentin taper. 01/02/2023: Stop olanzapine. Start risperidone 0.5mg qAM and 1 mg HS. 01/01/2023: The patient was admitted to the [facility] ([facility]) on q15 min checks (behavioral with suicide precautions) for safety. The patient will participate in group, recreational, and milieu therapies and will be offered additional individual and family sessions as clinically appropriate. -Olanzapine 15mg HS for mood stabilization -AWSS with thiamine, folic acid, gabapentin and ativan as needed for scoring -Goal of potentially moving to SPARROW such as Invega given intermittent adherence with oral medications -Fasting lipid panel and glucose tomorrow AM Inventory Assets Strengths: good rapport with psychiatrist, willing to get treatment Needs: safety and stabilization, medication adjustment, additional coping skills, increased outpatient services Suicide Risk Level Suicide Risk Level: High-Moderate (q15 min suicide checks) Suicide Risk Level Comments: Risk Factors Assessment Male: Yes : Yes Do You Have Access To A Gun?: No Health Problems: No Mental Health Diagnoses: Yes Substance Use Disorders: Yes Previous Attempt: Yes Family History of Suicide: Yes Previous Psychiatric Hospitalization: Yes Protective Factors Assessment Employed: No Good Rapport with Provider: Yes Interval History Identifying Information ANAMARIA KINGSTON is a 52-year-old M who currently lives in [place] with his girlfriend, has a history of BPAD, PTSD, alcohol use disorder, and was admitted on 12/31/22 22:08 on a 201 voluntary commitment for SI with plans of jumping from a local parking garage. Chief Complaint "I'm in no hurry, I think she'll take me back". Review of Systems Sleep Information Total Hours of Sleep: 6 Sleep Comments: Received Vistaril for sleep Meal Information Percent Meal Consumed - Breakfast: 100 Percent Meal Consumed - Lunch: 100 Percent Meal Consumed - Dinner: 50 Subjective Subjective Patient was seen & assessed and interval progress reviewed with nursing. Patient sleep better overnight but reported nightmare in early am. Patient desires retrial of antidepressant, reports was taking Zoloft consistently prior to admission, dose had been decreased from 150 mg to 100 mg. He is aware of risk of wilbur/cycling with antidepressants. He typically feels "worse" off of it. Physical Exam Psychiatric Orientation: alert and oriented x 3 Apperance: appropriately groomed Eye Contact: good eye contact Motor Behavior: no abnormal motor movements Speech: normal rate/rhythm/volume of speech Affect: + depressed affect and + anxious affect Mood: + depressed mood and + anxious mood Thought Process: goal directed thought process Thought Content: reality based without delusions Suicidal Thoughts: denies suicidal intent; + reports suicidal thoughts and + rep orts suicidal plan (for outside hospital to jump from parking deck, no plans for here) Homicidal Thoughts: denies homicidal thoughts Hallucinations: no auditory hallucinations and no visual hallucinations Cognition: recent memory grossly intact, remote memory grossly intact, attention grossly intact and language grossly intact Estimated Intelligence: consistent with education level Insight: + limited insight Judgment: + limited judgement Vital Signs (Past 24 Hours) Last Vital Signs Temp 36.4 C L 01/05/23 06:38 Pulse 96 H 01/05/23 06:39 Resp 16 01/05/23 06:38 BP 132/93 01/05/23 06:39 Pulse Ox 95 12/31/22 22:36 O2 Del Method Room Air 12/31/22 22:36 Results & Data (U) Current Inpatient Medications Current Inpatient Medications: Current Inpatient Medications Acetaminophen (Acetaminophen 325 Mg Tab) 650 mg PO Q4H PRN PRN Reason: Headache or Minor Fever Stop: 01/30/23 22:07 Last Admin: 01/02/23 14:02 Dose: 650 mg Al Hydrox/Mg Hydrox/Simethicone (Aluminum/Magnesium Susp 30 Ml Udc) 30 ml PO Q4H PRN PRN Reason: GI Upset Stop: 01/30/23 22:07 Atorvastatin Calcium (Atorvastatin 10 Mg Tab) 10 mg PO DAILY [facility] Stop: 02/01/23 08:59 Last Admin: 01/05/23 08:40 Dose: 10 mg Bismuth Subsalicylate (Bismuth Subsalicylate Liqd 236 Ml) 15 ml PO PRN PRN PRN Reason: Loose Stool Stop: 01/30/23 22:07 Folic Acid (Folic Acid 1 Mg Tab) 1 mg PO QAM [facility] Stop: 01/31/23 13:44 Last Admin: 01/05/23 08:40 Dose: 1 mg Hydroxyzine HCl (Hydroxyzine Hcl 25 Mg Tab) 50 mg PO HSZ PRN PRN Reason: Insomnia Stop: 01/30/23 22:07 Last Admin: 01/04/23 22:55 Dose: 50 mg Hydroxyzine HCl (Hydroxyzine Hcl 25 Mg Tab) 25 mg PO Q4H PRN PRN Reason: Anxiety Stop: 01/30/23 22:07 Last Admin: 01/02/23 13:35 Dose: 25 mg Hydroxyzine HCl (Hydroxyzine Hcl 25 Mg Tab) 50 mg PO HS [facility] Stop: 02/04/23 21:59 Lorazepam (Lorazepam 1 Mg Tab) 1 mg PO UD PRN; Protocol PRN Reason: EtOH Withdrawal AWSS Score 6,7 Stop: 01/30/23 22:07 Last Admin: 01/01/23 12:07 Dose: 1 mg Lorazepam (Lorazepam 1 Mg Tab) 3 mg PO ONCE PRN; Protocol PRN Reason: EtOH Withdrawal AWSS Score 10 & above Lorazepam (Lorazepam 1 Mg Tab) 2 mg PO UD PRN; Protocol PRN Reason: EtOH Withdrawal AWSS Score 8,9 Stop: 01/30/23 22:07 Magnesium Hydroxide (Magnesium Hydroxide Susp 30 Ml Udc) 30 ml PO DAILY PRN PRN Reason: Constipation Stop: 01/30/23 22:07 Melatonin (Melatonin 3 Mg Tab) 3 mg PO [facility] Stop: 02/03/23 21:59 Last Admin: 01/04/23 22:55 Dose: 3 mg Metformin HCl (Metformin Hcl Er 500 Mg Tabcr) 500 mg PO QDD [facility] Stop: 02/02/23 17:44 Last Admin: 01/04/23 17:30 Dose: 500 mg Miscellaneous (Remove Nicoderm Patch) 1 each N/A DAILY@0859 [facility] Stop: 01/31/23 08:58 Last Admin: 01/05/23 08:40 Dose: 1 each Nicotine (Nicotine 14 Mg/24 Hr Patch) 14 mg TD QAM [facility] Stop: 01/31/23 08:59 Last Admin: 01/05/23 08:40 Dose: 14 mg Nicotine Polacrilex (Nicotine Polacrilex 2 Mg Gum) 2 piece MT PRN PRN PRN Reason: Nicotine Withdrawal Stop: 01/30/23 22:07 Last Admin: 01/04/23 17:35 Dose: 2 piece Risperidone (Risperidone 1 Mg Tablet) 1 mg PO [facility] Stop: 02/01/23 21:59 Last Admin: 01/04/23 22:55 Dose: 1 mg Risperidone (Risperidone 0.5 Mg Tablet) 0.5 mg PO QAM [facility] Stop: 02/02/23 08:59 Last Admin: 01/05/23 08:40 Dose: 0.5 mg Sertraline HCl (Sertraline Hcl 50 Mg Tablet) [facility] Stop: 02/04/23 10:29 Last Admin: 01/05/23 11:26 Dose: 50 mg Sodium Chloride (Sodium Chloride 0.65% Na Soln 45 Ml ([place])) 1 - 2 sprays NA PRN PRN PRN Reason: Nasal Dryness/Congestion Stop: 01/30/23 22:07 Thiamine HCl (Thiamine Hcl 100 Mg Tab) 100 mg PO QAM [facility] Stop: 01/31/23 13:44 Last Admin: 01/05/23 08:40 Dose: 100 mg Mental Health & Subst Abuse Tx Therapist Name of Therapist: Nelida at [place]; she left seeing someone new doesn't know name Date of Therapist Appointment: Doesn't know, does not have his phone with him Banquet Director Name of Banquet Director: None Post Discharge Appointments Primary Care Physician Name Of Family Doctor/PCP: Angeline
[2023-01-05] MEDS: NICOTINE POLACRILEX 2 MG GUM MT PRN ×2 (12:54→17:35)
[2023-01-05] MEDS: metFORMIN HCL ER 500 MG TABCR PO SCH (17:22)
[2023-01-05] MEDS: risperiDONE 1 MG TABLET PO SCH (21:14)
[2023-01-05] MEDS: MELATONIN 3 MG TAB PO SCH (21:15)
[2023-01-05] MEDS: hydrOXYzine HCl 25 MG TAB PO SCH (21:16)
[2023-01-06] MEDS: FOLIC ACID 1 MG TAB PO SCH (08:37)
[2023-01-06] MEDS: NICOTINE 14 MG/24 HR PATCH TD SCH (08:37)
[2023-01-06] MEDS: ATORVASTATIN 10 MG TAB PO SCH (08:37)
[2023-01-06] MEDS: risperiDONE 0.5 MG TABLET PO SCH (08:38)
[2023-01-06] MEDS: THIAMINE HCL 100 MG TAB PO SCH (08:39)
[2023-01-06] MEDS: SERTRALINE HCL 50 MG TABLET PO SCH (08:39)
[2023-01-06] MEDS: NICOTINE POLACRILEX 2 MG GUM MT PRN ×3 (08:43→17:34)
[2023-01-06] MEDS ORDERED: SERTRALINE HCL 50 MG TABLET PO ONE (12:47)
[2023-01-06] MEDS ORDERED: PALIPERIDONE 1.5 MG TABCR PO ONE (12:48)
--- NOTE | 2023-01-06 12:55 | Psychiatric Progress Note ---
Date of Service January 06, 2023 Impression / Recommendations Impression As per Dr. Villanueva: Anamaria is a 52 year old man with a history of BPAD, PTSD and alcohol use disorder who was admitted for worsening depression with SI with plan and intent. Diagnostically consistent with unspecified mood disorder with differential including depressive episode of bipolar disorder vs substance- induced/withdrawal depression. He is deemed in need of psychiatric hospitalization for diagnostic clarification, safety and stabilization, medication management and development of further coping skills. 01/06/2023: improving (1) Bipolar 1 disorder, mixed, severe: (2) Alcohol use disorder: (3) Benzodiazepine misuse: (4) PTSD (post-traumatic stress disorder): Plan 01/06/2023: zoloft 75 mg today then titrate to 100 mg tomorrow. Transition Risperdal to Invega with plan for SPARROW. 01/05/2023: hydroxyzine scheduled hs with melatonin as both effective overnight, restart Zoloft 50 mg daily, likely transition to Invega PO tomorrow in anticipation of conversion to SPARROW, $0 copay per [facility] pharmacy. 01/04/2023: patient desires a trial of melatonin as Risperdal less sedating than Zyprexa, does desire SPARROW, need to determine coverage for SPARROW Invega. 01/03/2023: Starting metformin ER 500mg QDD tonight. Continue risperidone 0.5mg qAM and 1 mg HS. Continue AWSS with gabapentin taper. 01/02/2023: Stop olanzapine. Start risperidone 0.5mg qAM and 1 mg HS. 01/01/2023: The patient was admitted to the [facility] ([facility] mental health unit) on q15 min checks (behavioral with suicide precautions) for safety. The patient will participate in group, recreational, and milieu therapies and will be offered additional individual and family sessions as clinically appropriate. -Olanzapine 15mg HS for mood stabilization -AWSS with thiamine, folic acid, gabapentin and ativan as needed for scoring -Goal of potentially moving to SPARROW such as Invega given intermittent adherence with oral medications -Fasting lipid panel and glucose tomorrow AM Inventory Assets Strengths: good rapport with psychiatrist, willing to get treatment Needs: safety and stabilization, medication adjustment, additional coping skills, increased outpatient services Suicide Risk Level Suicide Risk Level: Moderate (q15 min suicide checks) Suicide Risk Level Comments: Risk Factors Assessment Male: Yes : Yes Do You Have Access To A Gun?: No Health Problems: No Mental Health Diagnoses: Yes Substance Use Disorders: Yes Previous Attempt: Yes Family History of Suicide: Yes Previous Psychiatric Hospitalization: Yes Protective Factors Assessment Employed: No Good Rapport with Provider: Yes Interval History Identifying Information ANAMARIA KINGSTON is a 52-year-old M who currently lives in [place] with his girlfriend, has a history of BPAD, PTSD, alcohol use disorder, and was admitted on 12/31/22 22:08 on a 201 voluntary commitment for SI with plans of jumping from a local parking garage. Chief Complaint "I want to go to rehab." Review of Systems Sleep Information Total Hours of Sleep: 6.5 Sleep Comments: Received Vistaril for sleep Meal Information Percent Meal Consumed - Breakfast: 100 Percent Meal Consumed - Lunch: 100 Percent Meal Consumed - Dinner: 50 Subjective Subjective Patient was seen & assessed and interval progress reviewed with treatment team. Patient reports some boost in mood following restart of Zoloft. Remains motivated toward SPARROW. He was able to see his dog in the healing garden yesterday which was a positive as well. States no SI since our meeting yesterday and that thoughts yesterday am were intermittent and passive. Physical Exam Psychiatric Orientation: alert and oriented x 3 Apperance: appropriately dressed and appropriately groomed Eye Contact: good eye contact Motor Behavior: no abnormal motor movements Speech: normal rate/rhythm/volume of speech Affect: + depressed affect Mood: + depressed mood Thought Process: goal directed thought process Thought Content: reality based without delusions Suicidal Thoughts: denies suicidal thoughts Homicidal Thoughts: denies homicidal thoughts Hallucinations: no auditory hallucinations and no visual hallucinations Cognition: attention grossly intact and language grossly intact Estimated Intelligence: consistent with education level Insight: + limited insight (but improving) Judgment: + limited judgement Vital Signs (Past 24 Hours) Last Vital Signs Temp 36.9 C 01/06/23 06:39 Pulse 98 H 01/06/23 06:39 Resp 16 01/06/23 06:39 BP 124/89 01/06/23 06:39 Pulse Ox 95 12/31/22 22:36 O2 Del Method Room Air 12/31/22 22:36 Results & Data ([facility]) Current Inpatient Medications Current Inpatient Medications: Current Inpatient Medications Acetaminophen (Acetaminophen 325 Mg Tab) 650 mg PO Q4H PRN PRN Reason: Headache or Minor Fever Stop: 01/30/23 22:07 Last Admin: 01/02/23 14:02 Dose: 650 mg Al Hydrox/Mg Hydrox/Simethicone (Aluminum/Magnesium Susp 30 Ml Udc) 30 ml PO Q4H PRN PRN Reason: GI Upset Stop: 01/30/23 22:07 Atorvastatin Calcium (Atorvastatin 10 Mg Tab) 10 mg PO DAILY DENOTE Stop: 02/01/23 08:59 Last Admin: 01/06/23 08:37 Dose: 10 mg Bismuth Subsalicylate (Bismuth Subsalicylate Liqd 236 Ml) 15 ml PO PRN PRN PRN Reason: Loose Stool Stop: 01/30/23 22:07 Folic Acid (Folic Acid 1 Mg Tab) 1 mg PO QAM [facility] Stop: 01/31/23 13:44 Last Admin: 01/06/23 08:37 Dose: 1 mg Hydroxyzine HCl (Hydroxyzine Hcl 25 Mg Tab) 50 mg PO HSZ PRN PRN Reason: Insomnia Stop: 01/30/23 22:07 Last Admin: 01/04/23 22:55 Dose: 50 mg Hydroxyzine HCl (Hydroxyzine Hcl 25 Mg Tab) 25 mg PO Q4H PRN PRN Reason: Anxiety Stop: 01/30/23 22:07 Last Admin: 01/02/23 13:35 Dose: 25 mg Hydroxyzine HCl (Hydroxyzine Hcl 25 Mg Tab) 50 mg PO HS DEONTE Stop: 02/04/23 21:59 Last Admin: 01/05/23 21:16 Dose: 50 mg Lorazepam (Lorazepam 1 Mg Tab) 1 mg PO UD PRN; Protocol PRN Reason: EtOH Withdrawal AWSS Score 6,7 Stop: 01/30/23 22:07 Last Admin: 01/01/23 12:07 Dose: 1 mg Lorazepam (Lorazepam 1 Mg Tab) 3 mg PO ONCE PRN; Protocol PRN Reason: EtOH Withdrawal AWSS Score 10 & above Lorazepam (Lorazepam 1 Mg Tab) 2 mg PO UD PRN; Protocol PRN Reason: EtOH Withdrawal AWSS Score 8,9 Stop: 01/30/23 22:07 Magnesium Hydroxide (Magnesium Hydroxide Susp 30 Ml Udc) 30 ml PO DAILY PRN PRN Reason: Constipation Stop: 01/30/23 22:07 Melatonin (Melatonin 3 Mg Tab) 3 mg PO HS [facility] Stop: 02/03/23 21:59 Last Admin: 01/05/23 21:15 Dose: 3 mg Metformin HCl (Metformin Hcl Er 500 Mg Tabcr) 500 mg PO QDD [facility] Stop: 02/02/23 17:44 Last Admin: 01/05/23 17:22 Dose: 500 mg Miscellaneous (Remove Nicoderm Patch) 1 each N/A DAILY@0859 [facility] Stop: 01/31/23 08:58 Last Admin: 01/06/23 08:37 Dose: 1 each Nicotine (Nicotine 14 Mg/24 Hr Patch) 14 mg TD QAM [facility] Stop: 01/31/23 08:59 Last Admin: 01/06/23 08:37 Dose: 14 mg Nicotine Polacrilex (Nicotine Polacrilex 2 Mg Gum) 2 piece MT PRN PRN PRN Reason: Nicotine Withdrawal Stop: 01/30/23 22:07 Last Admin: 01/06/23 08:43 Dose: 2 piece Paliperidone (Paliperidone 1.5 Mg Tabcr) 1.5 mg PO ONE ONE Stop: 01/06/23 12:49 Risperidone (Risperidone 1 Mg Tablet) 1 mg PO HS [facility] Stop: 02/01/23 21:59 Last Admin: 01/05/23 21:14 Dose: 1 mg Risperidone (Risperidone 0.5 Mg Tablet) 0.5 mg PO QAM [facility] Stop: 02/02/23 08:59 Last Admin: 01/06/23 08:38 Dose: 0.5 mg Sertraline HCl (Sertraline Hcl 50 Mg Tablet) 50 mg PO QAM [facility] Stop: 02/04/23 10:29 Last Admin: 01/06/23 08:39 Dose: 50 mg Sertraline HCl (Sertraline Hcl 50 Mg Tablet) 25 mg PO NOW ONE Stop: 01/06/23 12:48 Sodium Chloride (Sodium Chloride 0.65% Na Soln 45 Ml ([place])) 1 - 2 sprays NA PRN PRN PRN Reason: Nasal Dryness/Congestion Stop: 01/30/23 22:07 Thiamine HCl (Thiamine Hcl 100 Mg Tab) 100 mg PO QAM [facility] Stop: 01/31/23 13:44 Last Admin: 01/06/23 08:39 Dose: 100 mg Mental Health & Subst Abuse Tx Therapist Name of Therapist: Nelida at [place]; she left seeing someone new doesn't know name Date of Therapist Appointment: Doesn't know, does not have his phone with him Pet House Sitter Name of Pet House Sitter: None Post Discharge Appointments Primary Care Physician Name Of Family Doctor/PCP: Angeline
[2023-01-06] MEDS: metFORMIN HCL ER 500 MG TABCR PO SCH (17:20)
[2023-01-06] MEDS: MELATONIN 3 MG TAB PO SCH (22:46)
[2023-01-06] MEDS: hydrOXYzine HCl 25 MG TAB PO SCH (22:46)
[2023-01-07] MEDS: SERTRALINE HCL 100 MG TABLET PO SCH (08:26)
[2023-01-07] MEDS: NICOTINE 14 MG/24 HR PATCH TD SCH (08:26)
[2023-01-07] MEDS: ATORVASTATIN 10 MG TAB PO SCH (08:26)
[2023-01-07] MEDS: PALIPERIDONE 3 MG TABCR PO SCH (08:26)
[2023-01-07] MEDS: NICOTINE POLACRILEX 2 MG GUM MT PRN ×3 (08:56→17:55)
--- NOTE | 2023-01-07 12:23 | Psychiatric Progress Note ---
Date of Service January 07, 2023 Impression / Recommendations Impression As per Dr. Villanueva: Anamaria is a 52 year old man with a history of BPAD, PTSD and alcohol use disorder who was admitted for worsening depression with SI with plan and intent. Diagnostically consistent with unspecified mood disorder with differential including depressive episode of bipolar disorder vs substance- induced/withdrawal depression. He is deemed in need of psychiatric hospitalization for diagnostic clarification, safety and stabilization, medication management and development of further coping skills. 01/07/2023: improving, tolerating Invega (1) Bipolar 1 disorder, mixed, severe: (2) Alcohol use disorder: (3) Benzodiazepine misuse: (4) PTSD (post-traumatic stress disorder): Plan 01/07/2023: tolerated 2 doses of Invega, administer loading IM. 01/06/2023: zoloft 75 mg today then titrate to 100 mg tomorrow. Transition Risperdal to Invega with plan for SPARROW. 01/05/2023: hydroxyzine scheduled hs with melatonin as both effective overnight, restart Zoloft 50 mg daily, likely transition to Invega PO tomorrow in anticipation of conversion to SPARROW, $0 copay per [facility] pharmacy. 01/04/2023: patient desires a trial of melatonin as Risperdal less sedating than Zyprexa, does desire SPARROW, need to determine coverage for SPARROW Invega. 01/03/2023: Starting metformin ER 500mg QDD tonight. Continue risperidone 0.5mg qAM and 1 mg HS. Continue AWSS with gabapentin taper. 01/02/2023: Stop olanzapine. Start risperidone 0.5mg qAM and 1 mg HS. 01/01/2023: The patient was admitted to the [facility] ([facility] mental health unit) on q15 min checks (behavioral with suicide precautions) for safety. The patient will participate in group, recreational, and milieu therapies and will be offered additional individual and family sessions as clinically appropriate. -Olanzapine 15mg HS for mood stabilization -AWSS with thiamine, folic acid, gabapentin and ativan as needed for scoring -Goal of potentially moving to SPARROW such as Invega given intermittent adherence with oral medications -Fasting lipid panel and glucose tomorrow AM Inventory Assets Strengths: good rapport with psychiatrist, willing to get treatment Needs: safety and stabilization, medication adjustment, additional coping skills, increased outpatient services Suicide Risk Level Suicide Risk Level: Moderate (q15 min suicide checks) Suicide Risk Level Comments: Risk Factors Assessment Male: Yes : Yes Do You Have Access To A Gun?: No Health Problems: No Mental Health Diagnoses: Yes Substance Use Disorders: Yes Previous Attempt: Yes Family History of Suicide: Yes Previous Psychiatric Hospitalization: Yes Protective Factors Assessment Employed: No Good Rapport with Provider: Yes Interval History Identifying Information ANAMARIA KINGSTON is a 52-year-old M who currently lives in [place] with his girlfriend, has a history of BPAD, PTSD, alcohol use disorder, and was admitted on 12/31/22 22:08 on a 201 voluntary commitment for SI with plans of jumping from a local parking garage. Chief Complaint "I'm feeling more positive" Review of Systems Sleep Information Total Hours of Sleep: 6.5 Sleep Comments: Received Vistaril for sleep Meal Information Percent Meal Consumed - Breakfast: 100 Percent Meal Consumed - Lunch: 60 Percent Meal Consumed - Dinner: 100 Nutrition Comment: Double Portions Subjective Subjective Patient was seen & assessed and interval progress reviewed with nursing and social work. Accepted to [facility] 01/10/23 bed hold. Physical Exam Psychiatric Orientation: alert and oriented x 3 Apperance: appropriately dressed and appropriately groomed Eye Contact: good eye contact Motor Behavior: no abnormal motor movements Speech: normal rate/rhythm/volume of speech Affect: + depressed affect Mood: + depressed mood Thought Process: goal directed thought process Thought Content: reality based without delusions Suicidal Thoughts: denies suicidal thoughts Homicidal Thoughts: denies homicidal thoughts Hallucinations: no auditory hallucinations and no visual hallucinations Cognition: attention grossly intact and language grossly intact Estimated Intelligence: consistent with education level Vital Signs (Past 24 Hours) Last Vital Signs Temp 36.7 C 01/07/23 06:37 Pulse 83 01/07/23 06:37 Resp 16 01/07/23 06:37 BP 143/91 H 01/07/23 06:37 Pulse Ox 95 12/31/22 22:36 O2 Del Method Room Air 12/31/22 22:36 Results & Data ([facility]) Current Inpatient Medications Current Inpatient Medications: Current Inpatient Medications Acetaminophen (Acetaminophen 325 Mg Tab) 650 mg PO Q4H PRN PRN Reason: Headache or Minor Fever Stop: 01/30/23 22:07 Last Admin: 01/02/23 14:02 Dose: 650 mg Al Hydrox/Mg Hydrox/Simethicone (Aluminum/Magnesium Susp 30 Ml Udc) 30 ml PO Q4H PRN PRN Reason: GI Upset Stop: 01/30/23 22:07 Atorvastatin Calcium (Atorvastatin 10 Mg Tab) 10 mg PO DAILY [facility] Stop: 02/01/23 08:59 Last Admin: 01/07/23 08:26 Dose: 10 mg Bismuth Subsalicylate (Bismuth Subsalicylate Liqd 236 Ml) 15 ml PO PRN PRN PRN Reason: Loose Stool Stop: 01/30/23 22:07 Hydroxyzine HCl (Hydroxyzine Hcl 25 Mg Tab) 50 mg PO HSZ PRN PRN Reason: Insomnia Stop: 01/30/23 22:07 Last Admin: 01/04/23 22:55 Dose: 50 mg Hydroxyzine HCl (Hydroxyzine Hcl 25 Mg Tab) 25 mg PO Q4H PRN PRN Reason: Anxiety Stop: 01/30/23 22:07 Last Admin: 01/02/23 13:35 Dose: 25 mg Hydroxyzine HCl (Hydroxyzine Hcl 25 Mg Tab) 50 mg PO HS [facility] Stop: 02/04/23 21:59 Last Admin: 01/06/23 22:46 Dose: 50 mg Magnesium Hydroxide (Magnesium Hydroxide Susp 30 Ml Udc) 30 ml PO DAILY PRN PRN Reason: Constipation Stop: 01/30/23 22:07 Melatonin (Melatonin 3 Mg Tab) 3 mg PO HS [facility] Stop: 02/03/23 21:59 Last Admin: 01/06/23 22:46 Dose: 3 mg Metformin HCl (Metformin Hcl Er 500 Mg Tabcr) 500 mg PO QDD [facility] Stop: 02/02/23 17:44 Last Admin: 01/06/23 17:20 Dose: 500 mg Miscellaneous (Remove Nicoderm Patch) 1 each N/A DAILY@0859 [facility] Stop: 01/31/23 08:58 Last Admin: 01/07/23 08:28 Dose: 1 each Nicotine (Nicotine 14 Mg/24 Hr Patch) 14 mg TD QAM [facility] Stop: 01/31/23 08:59 Last Admin: 01/07/23 08:26 Dose: 14 mg Nicotine Polacrilex (Nicotine Polacrilex 2 Mg Gum) 2 piece MT PRN PRN PRN Reason: Nicotine Withdrawal Stop: 07/13/23 22:07 Last Admin: 01/07/23 08:56 Dose: 2 piece Paliperidone (Paliperidone 3 Mg Tabcr) 3 mg PO QAM [facility] Stop: 02/06/23 08:59 Last Admin: 01/07/23 08:26 Dose: 3 mg Paliperidone Palmitate (Paliperidone Palmitate 234 Mg/1.5 Ml Syr) 234 mg IM TODAY@1300 [facility] Stop: 01/07/23 13:01 Sertraline HCl (Sertraline Hcl 100 Mg Tablet) [facility] Stop: 02/06/23 08:59 Last Admin: 01/07/23 08:26 Dose: 100 mg Sodium Chloride (Sodium Chloride 0.65% Na Soln 45 Ml ([place])) 1 - 2 sprays NA PRN PRN PRN Reason: Nasal Dryness/Congestion Stop: 01/30/23 22:07 Mental Health & Subst Abuse Tx Therapist Name of Therapist: Nelida at [facility]; she left seeing someone new doesn't know name Date of Therapist Appointment: Doesn't know, does not have his phone with him Lead Enterprise Architect Name of Lead Enterprise Architect: None Post Discharge Appointments Primary Care Physician Name Of Family Doctor/PCP: Angeline
[2023-01-07] MEDS ORDERED: PALIPERIDONE PALMITATE 234 MG/1.5 ML SYR IM SCH (13:00)
[2023-01-07] MEDS: metFORMIN HCL ER 500 MG TABCR PO SCH (17:24)
[2023-01-07] MEDS: MELATONIN 3 MG TAB PO SCH (22:02)
[2023-01-07] MEDS: hydrOXYzine HCl 25 MG TAB PO SCH (22:02)
[2023-01-08] MEDS: NICOTINE 14 MG/24 HR PATCH TD SCH (08:51)
[2023-01-08] MEDS: ATORVASTATIN 10 MG TAB PO SCH (08:51)
[2023-01-08] MEDS: PALIPERIDONE 3 MG TABCR PO SCH (08:52)
[2023-01-08] MEDS: SERTRALINE HCL 100 MG TABLET PO SCH (08:52)
[2023-01-08] MEDS: NICOTINE POLACRILEX 2 MG GUM MT PRN ×3 (09:17→17:30)
--- NOTE | 2023-01-08 11:37 | Psychiatric Progress Note ---
Date of Service January 08, 2023 Impression / Recommendations Impression As per Dr. Villanueva: Anamaria is a 52 year old man with a history of BPAD, PTSD and alcohol use disorder who was admitted for worsening depression with SI with plan and intent. Diagnostically consistent with unspecified mood disorder with differential including depressive episode of bipolar disorder vs substance- induced/withdrawal depression. He is deemed in need of psychiatric hospitalization for diagnostic clarification, safety and stabilization, medication management and development of further coping skills. 01/08/2023: improving (1) Bipolar 1 disorder, mixed, severe: (2) Alcohol use disorder: (3) Benzodiazepine misuse: (4) PTSD (post-traumatic stress disorder): Plan 01/08/2023: continue current meds and tx plan. 2nd injection of Invega on 01/10/23. 01/07/2023: tolerated 2 doses of Invega, administer loading IM. 01/06/2023: zoloft 75 mg today then titrate to 100 mg tomorrow. Transition Risperdal to Invega with plan for SPARROW. 01/05/2023: hydroxyzine scheduled hs with melatonin as both effective overnight, restart Zoloft 50 mg daily, likely transition to Invega PO tomorrow in anticipation of conversion to SPARROW, $0 copay per [facility] pharmacy. 01/04/2023: patient desires a trial of melatonin as Risperdal less sedating than Zyprexa, does desire SPARROW, need to determine coverage for SPARROW Invega. 01/03/2023: Starting metformin ER 500mg QDD tonight. Continue risperidone 0.5mg qAM and 1 mg HS. Continue AWSS with gabapentin taper. 01/02/2023: Stop olanzapine. Start risperidone 0.5mg qAM and 1 mg HS. 01/01/2023: The patient was admitted to the [facility] ([facility] inpatient mental health unit) on q15 min checks (behavioral with suicide precautions) for safety. The patient will participate in group, recreational, and milieu therapies and will be offered additional individual and family sessions as clinically appropriate. -Olanzapine 15mg HS for mood stabilization -AWSS with thiamine, folic acid, gabapentin and ativan as needed for scoring -Goal of potentially moving to SPARROW such as Invega given intermittent adherence with oral medications -Fasting lipid panel and glucose tomorrow AM Inventory Assets Strengths: good rapport with psychiatrist, willing to get treatment Needs: safety and stabilization, medication adjustment, additional coping skills, increased outpatient services Suicide Risk Level Suicide Risk Level: Moderate (q15 min suicide checks) Suicide Risk Level Comments: Risk Factors Assessment Male: Yes : Yes Do You Have Access To A Gun?: No Health Problems: No Mental Health Diagnoses: Yes Substance Use Disorders: Yes Previous Attempt: Yes Family History of Suicide: Yes Previous Psychiatric Hospitalization: Yes Protective Factors Assessment Employed: No Good Rapport with Provider: Yes Interval History Identifying Information ANAMARIA KINGSTON is a 52-year-old M who currently lives in [place] with his girlfriend, has a history of BPAD, PTSD, alcohol use disorder, and was admitted on 12/31/22 22:08 on a 201 voluntary commitment for SI with plans of jumping from a local parking garage. Chief Complaint awaiting rehab placement Review of Systems Sleep Information Total Hours of Sleep: 7.25 Sleep Comments: Received Vistaril for sleep Meal Information Percent Meal Consumed - Breakfast: 100 Percent Meal Consumed - Lunch: 100 Percent Meal Consumed - Dinner: 100 Nutrition Comment: Double Portions Subjective Subjective Patient was seen & assessed and interval progress reviewed with treatment team. tolerated first Invega injection. Attending groups, sometimes reports ambivalence to staff but otherwise improving. Physical Exam Psychiatric Orientation: alert and oriented x 3 Apperance: appropriately dressed and appropriately groomed Eye Contact: good eye contact Motor Behavior: no abnormal motor movements Speech: normal rate/rhythm/volume of speech Affect: + depressed affect Mood: + depressed mood Thought Process: goal directed thought process Thought Content: reality based without delusions Suicidal Thoughts: denies suicidal thoughts Homicidal Thoughts: denies homicidal thoughts Hallucinations: no auditory hallucinations and no visual hallucinations Cognition: attention grossly intact and language grossly intact Estimated Intelligence: consistent with education level Vital Signs (Past 24 Hours) Last Vital Signs Temp 37 C 01/08/23 06:43 Pulse 108 H 01/08/23 06:44 Resp 16 01/08/23 06:43 BP 128/82 01/08/23 06:44 Pulse Ox 95 12/31/22 22:36 O2 Del Method Room Air 12/31/22 22:36 Results & Data (U) Current Inpatient Medications Current Inpatient Medications: Current Inpatient Medications Acetaminophen (Acetaminophen 325 Mg Tab) 650 mg PO Q4H PRN PRN Reason: Headache or Minor Fever Stop: 01/30/23 22:07 Last Admin: 01/02/23 14:02 Dose: 650 mg Al Hydrox/Mg Hydrox/Simethicone (Aluminum/Magnesium Susp 30 Ml Udc) 30 ml PO Q4H PRN PRN Reason: GI Upset Stop: 01/30/23 22:07 Atorvastatin Calcium (Atorvastatin 10 Mg Tab) 10 mg PO DAILY [facility] Stop: 02/01/23 08:59 Last Admin: 01/08/23 08:51 Dose: 10 mg Bismuth Subsalicylate (Bismuth Subsalicylate Liqd 236 Ml) 15 ml PO PRN PRN PRN Reason: Loose Stool Stop: 01/30/23 22:07 Hydroxyzine HCl (Hydroxyzine Hcl 25 Mg Tab) 50 mg PO HSZ PRN PRN Reason: Insomnia Stop: 01/30/23 22:07 Last Admin: 01/04/23 22:55 Dose: 50 mg Hydroxyzine HCl (Hydroxyzine Hcl 25 Mg Tab) 25 mg PO Q4H PRN PRN Reason: Anxiety Stop: 01/30/23 22:07 Last Admin: 01/02/23 13:35 Dose: 25 mg Hydroxyzine HCl (Hydroxyzine Hcl 25 Mg Tab) 50 mg PO HS [facility] Stop: 02/04/23 21:59 Last Admin: 01/07/23 22:02 Dose: 50 mg Magnesium Hydroxide (Magnesium Hydroxide Susp 30 Ml Udc) 30 ml PO DAILY PRN PRN Reason: Constipation Stop: 01/30/23 22:07 Melatonin (Melatonin 3 Mg Tab) 3 mg PO HS [facility] Stop: 02/03/23 21:59 Last Admin: 01/07/23 22:02 Dose: 3 mg Metformin HCl (Metformin Hcl Er 500 Mg Tabcr) 500 mg PO QDD [facility] Stop: 02/02/23 17:44 Last Admin: 01/07/23 17:24 Dose: 500 mg Miscellaneous (Remove Nicoderm Patch) 1 each N/A DAILY@0859 [facility] Stop: 01/31/23 08:58 Last Admin: 01/08/23 08:51 Dose: 1 each Nicotine (Nicotine 14 Mg/24 Hr Patch) 14 mg TD QAM [facility] Stop: 01/31/23 08:59 Last Admin: 01/08/23 08:51 Dose: 14 mg Nicotine Polacrilex (Nicotine Polacrilex 2 Mg Gum) 2 piece MT PRN PRN PRN Reason: Nicotine Withdrawal Stop: 01/30/23 22:07 Last Admin: 01/08/23 09:17 Dose: 2 piece Paliperidone (Paliperidone 3 Mg Tabcr) 3 mg PO QAM [facility] Stop: 02/06/23 08:59 Last Admin: 01/08/23 08:52 Dose: 3 mg Sertraline HCl (Sertraline Hcl 100 Mg Tablet) 100 mg PO QAM [facility] Stop: 02/06/23 08:59 Last Admin: 01/08/23 08:52 Dose: 100 mg Sodium Chloride (Sodium Chloride 0.65% Na Soln 45 Ml ([place])) 1 - 2 sprays NA PRN PRN PRN Reason: Nasal Dryness/Congestion Stop: 01/30/23 22:07 Mental Health & Subst Abuse Tx Therapist Name of Therapist: Nelida at [facility]; she left seeing someone new doesn't know name Date of Therapist Appointment: Doesn't know, does not have his phone with him Warehouse Hand Name of Warehouse Hand: None Post Discharge Appointments Primary Care Physician Name Of Family Doctor/PCP: Angeline
[2023-01-08] MEDS: metFORMIN HCL ER 500 MG TABCR PO SCH (17:04)
[2023-01-08] MEDS: hydrOXYzine HCl 25 MG TAB PO SCH (21:20)
[2023-01-08] MEDS: MELATONIN 3 MG TAB PO SCH (21:20)
[2023-01-09] MEDS: PALIPERIDONE 3 MG TABCR PO SCH (08:33)
[2023-01-09] MEDS: ATORVASTATIN 10 MG TAB PO SCH (08:33)
[2023-01-09] MEDS: NICOTINE 14 MG/24 HR PATCH TD SCH (08:33)
[2023-01-09] MEDS: SERTRALINE HCL 100 MG TABLET PO SCH (08:34)
[2023-01-09] MEDS: NICOTINE POLACRILEX 2 MG GUM MT PRN ×3 (09:05→17:46)
--- NOTE | 2023-01-09 12:19 | Psychiatric Progress Note ---
Date of Service January 09, 2023 Impression / Recommendations Impression As per Dr. Villanueva: Anamaria is a 52 year old man with a history of BPAD, PTSD and alcohol use disorder who was admitted for worsening depression with SI with plan and intent. Diagnostically consistent with unspecified mood disorder with differential including depressive episode of bipolar disorder vs substance- induced/withdrawal depression. He is deemed in need of psychiatric hospitalization for diagnostic clarification, safety and stabilization, medication management and development of further coping skills. 01/09/2023: improving Plan: 2nd invega injection in am and d/c to rehab. (1) Bipolar 1 disorder, mixed, severe: (2) Alcohol use disorder: (3) Benzodiazepine misuse: (4) PTSD (post-traumatic stress disorder): Inventory Assets Strengths: good rapport with psychiatrist, willing to get treatment Needs: safety and stabilization, medication adjustment, additional coping skills, increased outpatient services Suicide Risk Level Suicide Risk Level: Moderate (q15 min suicide checks) Suicide Risk Level Comments: Risk Factors Assessment Male: Yes : Yes Do You Have Access To A Gun?: No Health Problems: No Mental Health Diagnoses: Yes Substance Use Disorders: Yes Previous Attempt: Yes Family History of Suicide: Yes Previous Psychiatric Hospitalization: Yes Protective Factors Assessment Employed: No Good Rapport with Provider: Yes Interval History Identifying Information ANAMARIA KINGSTON is a 52-year-old M who currently lives in [place] with his girlfriend, has a history of BPAD, PTSD, alcohol use disorder, and was admitted on 12/31/22 22:08 on a 201 voluntary commitment for SI with plans of jumping from a local parking garage. Chief Complaint anticipatory anxiety re: rehab. Review of Systems Sleep Information Total Hours of Sleep: 6.5 Sleep Comments: Received Vistaril for sleep Meal Information Percent Meal Consumed - Breakfast: 100 Percent Meal Consumed - Lunch: 50 Percent Meal Consumed - Dinner: 75 Nutrition Comment: Double Portions Subjective Subjective Patient was seen & assessed and interval progress reviewed with nursing and social work. normalized his anxiety. tolerating meds. Physical Exam Psychiatric alert, cooperative, speech normal, affect calm, thoughts organized, denied SI/HI/noonan/del. no abnormal motor movements. Vital Signs (Past 24 Hours) Last Vital Signs Temp 37 C 01/09/23 06:38 Pulse 99 H 01/09/23 06:38 Resp 16 01/09/23 06:38 BP 131/94 01/09/23 06:38 Pulse Ox 95 12/31/22 22:36 O2 Del Method Room Air 12/31/22 22:36 Results & Data ([facility]) Current Inpatient Medications Current Inpatient Medications: Current Inpatient Medications Acetaminophen (Acetaminophen 325 Mg Tab) 650 mg PO Q4H PRN PRN Reason: Headache or Minor Fever Stop: 01/30/23 22:07 Last Admin: 01/02/23 14:02 Dose: 650 mg Al Hydrox/Mg Hydrox/Simethicone (Aluminum/Magnesium Susp 30 Ml Udc) 30 ml PO Q4H PRN PRN Reason: GI Upset Stop: 01/30/23 22:07 Atorvastatin Calcium (Atorvastatin 10 Mg Tab) 10 mg PO DAILY DEONTE Stop: 02/01/23 08:59 Last Admin: 01/09/23 08:33 Dose: 10 mg Bismuth Subsalicylate (Bismuth Subsalicylate Liqd 236 Ml) 15 ml PO PRN PRN PRN Reason: Loose Stool Stop: 01/30/23 22:07 Hydroxyzine HCl (Hydroxyzine Hcl 25 Mg Tab) 50 mg PO HSZ PRN PRN Reason: Insomnia Stop: 01/30/23 22:07 Last Admin: 01/04/23 22:55 Dose: 50 mg Hydroxyzine HCl (Hydroxyzine Hcl 25 Mg Tab) 25 mg PO Q4H PRN PRN Reason: Anxiety Stop: 01/30/23 22:07 Last Admin: 01/02/23 13:35 Dose: 25 mg Hydroxyzine HCl (Hydroxyzine Hcl 25 Mg Tab) 50 mg PO HS [facility] Stop: 02/04/23 21:59 Last Admin: 01/08/23 21:20 Dose: 50 mg Magnesium Hydroxide (Magnesium Hydroxide Susp 30 Ml Udc) 30 ml PO DAILY PRN PRN Reason: Constipation Stop: 01/30/23 22:07 Melatonin (Melatonin 3 Mg Tab) 3 mg PO HS [facility] Stop: 02/03/23 21:59 Last Admin: 01/08/23 21:20 Dose: 3 mg Metformin HCl (Metformin Hcl Er 500 Mg Tabcr) 500 mg PO QDD DEONTE Stop: 02/02/23 17:44 Last Admin: 01/08/23 17:04 Dose: 500 mg Miscellaneous (Remove Nicoderm Patch) 1 each N/A DAILY@0859 [facility] Stop: 01/31/23 08:58 Last Admin: 01/09/23 08:33 Dose: 1 each Nicotine (Nicotine 14 Mg/24 Hr Patch) 14 mg TD QAM [facility] Stop: 01/31/23 08:59 Last Admin: 01/09/23 08:33 Dose: 14 mg Nicotine Polacrilex (Nicotine Polacrilex 2 Mg Gum) 2 piece MT PRN PRN PRN Reason: Nicotine Withdrawal Stop: 01/30/23 22:07 Last Admin: 01/09/23 09:05 Dose: 2 piece Paliperidone (Paliperidone 3 Mg Tabcr) 3 mg PO QAM [facility] Stop: 02/06/23 08:59 Last Admin: 01/09/23 08:33 Dose: 3 mg Paliperidone Palmitate (Paliperidone Palmitate 156 Mg/Ml Syr) 156 mg IM ONE ONE Stop: 01/10/23 08:01 Sertraline HCl (Sertraline Hcl 100 Mg Tablet) 100 mg PO [facility] Stop: 02/06/23 08:59 Last Admin: 01/09/23 08:34 Dose: 100 mg Sodium Chloride (Sodium Chloride 0.65% Na Soln 45 Ml ([place])) 1 - 2 sprays NA PRN PRN PRN Reason: Nasal Dryness/Congestion Stop: 01/30/23 22:07 Mental Health & Subst Abuse Tx Therapist Name of Therapist: [facility]; she left seeing someone new doesn't know name Date of Therapist Appointment: Doesn't know, does not have his phone with him Resident Athletic Trainer Name of Resident Athletic Trainer: None Post Discharge Appointments Primary Care Physician Name Of Family Doctor/PCP: Angeline
[2023-01-09] MEDS: metFORMIN HCL ER 500 MG TABCR PO SCH (17:45)
[2023-01-09] MEDS: hydrOXYzine HCl 25 MG TAB PO SCH (22:26)
[2023-01-09] MEDS: MELATONIN 3 MG TAB PO SCH (22:26)
[2023-01-10] MEDS ORDERED: PALIPERIDONE PALMITATE 156 MG/ML SYR IM ONE (08:00)
[2023-01-10] MEDS: SERTRALINE HCL 100 MG TABLET PO SCH (08:42)
[2023-01-10] MEDS: PALIPERIDONE 3 MG TABCR PO SCH (08:42)
[2023-01-10] MEDS: ATORVASTATIN 10 MG TAB PO SCH (08:42)
[2023-01-10] MEDS: NICOTINE 14 MG/24 HR PATCH TD SCH (08:44)
[2023-01-10] MEDS: NICOTINE POLACRILEX 2 MG GUM MT PRN ×2 (09:01→12:44)
--- NOTE | 2023-01-10 09:09 | Discharge Summary ---
Date of Service January 10, 2023 History of Present Illness As per Dr. Villanueva on admission: Phuc presented to the ED via police on a 302 warrant or worsening depression and SI with plan of jumping from a parking garage after his girlfriend filed a PFA against him. Over the 1.5 weeks he reports developing symptoms of wilbur and started to overuse his prescribed Klonopin taking on average 4mg per day over the last two weeks. Two evenings ago he took 6mg of Klonopin and relapsed on alcohol use drinking multiple beers and then got into a verbal altercation with his girlfriend and neighbors. The police were called and he was put in halfway overnight and charged with disorderly conduct. After he was released he walked home and was then informed that his girlfriend had filed a PFA against him. When police served him with the PFA he told them of his plan to by suicide. States he continues to feel suicidal with plan to jump from [address] as he feels "there's no way out". Describes knowledge of there being a ladder and door on the roof of the parking deck that he could use to access the 7th floor, stating his knowledge of this comes from his prior job working at [employer]. He feels very depressed and that he will end up homeless since his girlfriend filed a PFA and therefore feels there is no point to continuing with life stating "I just see brick johnson". He feels hopeless, has not been sleeping well and reports poor appetite. He continues to see his outpatient psychiatrist but has been using medication intermittently and at various doses including recently taking olanzapine 40mg per day and "a few Klonopin" when he started to feel manic but feels they had no effect. States he only relapsed on alcohol the day of the argument with his neighbors and girlfriend and otherwise had been sober for the last 4.5 months and had been attending AA. Of note his report of when he starting drinking again has varied between reports varying for the last week to only one day. Physical Exam Psychiatric See admission H&P and DOD assessment. Vital Signs (Past 24 Hours) Last Vital Signs Temp 36.8 C 01/10/23 06:46 Pulse 108 H 01/10/23 06:46 Resp 16 06/23/23 06:46 BP 140/98 01/10/23 06:46 Pulse Ox 95 12/31/22 22:36 O2 Del Method Room Air 12/31/22 22:36 Principal Diagnosis bipolar disorder Psychiatric Data See daily stay summary. In short, safety was maintained and the patient was cooperative with care. Medication changes included antipsychotic change to Risperdal in preparation for a trial of Invega SPARROW and restart of Zoloft. He tolerated this well. A family session was deferred as his main support, his girlfriend had an active PFA which precluded her from visitation. A safety plan was completed prior to discharge. He has a history of weight gain on atypicals and hyperinsulinemia and was restarted on metformin as well during his stay. He is aware of need for ongoing metabolic and TD monitoring with atypicals. Dosing recommendations were given for his next Invega shot which can either be ordered at the rehab or sent to the [facility] pharmacy for admin at [place] upon discharge from rehab. Day of Discharge Assessment Today the patient voices readiness for discharge. They note improvement in mood and deny thoughts to harm self or others. Thoughts remain organized and they are improved from admission. There is no evidence of psychosis. They agree to take mediations as prescribed and keep follow-up appointments. They are stable for discharge to outpatient level of care. Transition of Care Transition Of Care Record: was reviewed with the patient Advance Directives Advance Directives Information Provided: Yes Advance Directives: No Mental Health Advance Directive: No Advance Directives on File: No Living Will: No Power of Insulator Cutter And Former: No Advance Directives Reason:: Declines as Mental Health Visit. Suicide Risk Level Suicide Risk Level Comments: Suicide risk at discharge is deemed low as the patient is no longer requiring 24-hr monitoring, has a safety plan, and is free of suicidal ideation at discharge. Risk Factors Assessment Male: Yes : Yes Do You Have Access To A Gun?: No Health Problems: No Mental Health Diagnoses: Yes Substance Use Disorders: Yes Previous Attempt: Yes Family History of Suicide: Yes Previous Psychiatric Hospitalization: Yes Protective Factors Assessment Employed: No Good Rapport with Provider: Yes Tobacco Cessation at Discharge Tobacco Cessation Medication Prescribed at Discharge: Offered & Pt Refused Opioid Risk Protocol patient uses Klonopin and Alcohol, denies opiates, he is being discharged directly to rehab facilitate and declines naltrexone. Total Time Total Time Spent: Greater Than 30 Minutes Total Time Includes: Examination of the patient, Discharge Planning and Medication Reconciliation Discharge Data Lab Results 12/31/22 12/31/22 12/31/22 17:25 17:25 17:25 WBC RBC Hgb Hct MCV MCH MCHC RDW Std Deviation RDW Coeff of [place] Plt Count MPV Immature Gran % (Auto) Neut % (Auto) Lymph % (Auto) Mineral % (Auto) Eos % (Auto) Baso % (Auto) Neut # (Auto) Lymph # (Auto) Mineral # (Auto) Eos # (Auto) Baso # (Auto) Immature Gran # (Auto) Sodium Potassium Chloride Carbon Dioxide Anion Gap BUN Creatinine Est Cr Clr Drug Dosing Est GFR ( Amer) Est GFR (Non-Af Amer) BUN/Creatinine Ratio Glucose Fasting Glucose Estimat Average Glucose Hemoglobin A1c Calcium Total Bilirubin AST ALT Alkaline Phosphatase Total Protein Albumin Globulin Albumin/Globulin Ratio Triglycerides Cholesterol LDL Cholesterol, Calc VLDL Cholesterol, Calc HDL Cholesterol Cholesterol/HDL Ratio TSH Urine Color Dark Yellow Urine Appearance Cloudy A Urine pH 5.0 Ur Specific [place] 1.026 Urine Protein 2+ H Urine Glucose (UA) Negative Urine Ketones Trace H Urine Blood Negative Urine Nitrite Negative Urine Bilirubin 1+ H Urine Urobilinogen Negative Ur Leukocyte Esterase Negative Urine WBC (Auto) 5-10 H Urine RBC (Auto) 5-10 H U Hyaline Cast (Auto) 1-5 U Epithel Cells (Auto) >30 H Urine Bacteria (Auto) Negative Salicylates Urine Opiates Screen Neg Ur Methadone, Qual Neg Acetaminophen Urine Barbiturates Neg Ur Phencyclidine (PCP) Neg U Amphetamin/Meth Scrn Neg MDMA (Ecstasy) Screen Neg U OH-Alprazolam Confrm NEGATIVE U Benzodiazepines Scrn Pos H 7-Amino Clonazepam >2000 H Ur Nordiazepam Confirm NEGATIVE U OH-ethylflurazepam NEGATIVE U Lorazepam Cnf GC/MS NEGATIVE U Oxazepam Confm GC/MS NEGATIVE Ur Temazepam Confirm NEGATIVE U OH-Triazolam Confirm NEGATIVE U OH-Midazolam Confirm NEGATIVE Ur Cocaine Metabolite Neg U Marijuana (THC) Screen Pos H U Marijuana THC Carboxy 384 H Drug Screen Comment SEE NOTE Ethyl Alcohol mg/dL SARS-CoV-2, RNA, NAAT 12/31/22 12/31/22 12/31/22 17:30 18:10 18:10 WBC 21.39 H RBC 5.45 Hgb 17.4 Hct 48.9 MCV 89.7 MCH 31.9 MCHC 35.6 RDW Std Deviation 44.8 RDW Coeff of [place] 14.0 Plt Count 361 MPV 9.8 Immature Gran % (Auto) 1.0 Neut % (Auto) 76.6 Lymph % (Auto) 13.9 Mineral % (Auto) 7.1 Eos % (Auto) 0.8 Baso % (Auto) 0.6 Neut # (Auto) 16.38 H Lymph # (Auto) 2.98 Mineral # (Auto) 1.51 H Eos # (Auto) 0.18 Baso # (Auto) 0.12 Immature Gran # (Auto) 0.22 H Sodium 140 Potassium 4.2 Chloride 104 Carbon Dioxide 27 Anion Gap 9 BUN 15 Creatinine 0.93 Est Cr Clr Drug Dosing 127.1 Est GFR ( Amer) 110.6 Est GFR (Non-Af Amer) 95.4 BUN/Creatinine Ratio 16.1 Glucose 109 H Fasting Glucose Estimat Average Glucose Hemoglobin A1c Calcium 9.5 Total Bilirubin 0.6 AST 19 ALT 41 Alkaline Phosphatase 58 Total Protein 8.3 Albumin 5.0 Globulin 3.3 Albumin/Globulin Ratio 1.5 Triglycerides Cholesterol LDL Cholesterol, Calc VLDL Cholesterol, Calc HDL Cholesterol Cholesterol/HDL Ratio TSH Urine Color Urine Appearance Urine pH Ur Specific [place] Urine Protein Urine Glucose (UA) Urine Ketones Urine Blood Urine Nitrite Urine Bilirubin Urine Urobilinogen Ur Leukocyte Esterase Urine WBC (Auto) Urine RBC (Auto) U Hyaline Cast (Auto) U Epithel Cells (Auto) Urine Bacteria (Auto) Salicylates Urine Opiates Screen Ur Methadone, Qual Acetaminophen Urine Barbiturates Ur Phencyclidine (PCP) U Amphetamin/Meth Scrn MDMA (Ecstasy) Screen U OH-Alprazolam Confrm U Benzodiazepines Scrn 7-Amino Clonazepam Ur Nordiazepam Confirm U OH-ethylflurazepam U Lorazepam Cnf GC/MS U Oxazepam Confm GC/MS Ur Temazepam Confirm U OH-Triazolam Confirm U OH-Midazolam Confirm Ur Cocaine Metabolite U Marijuana (THC) Screen U Marijuana THC Carboxy Drug Screen Comment Ethyl Alcohol mg/dL SARS-CoV-2, RNA, NAAT NEGATIVE 12/31/22 12/31/22 12/31/22 18:10 18:10 18:10 WBC RBC Hgb Hct MCV MCH MCHC RDW Std Deviation RDW Coeff of [place] Plt Count MPV Immature Gran % (Auto) Neut % (Auto) Lymph % (Auto) Mineral % (Auto) Eos % (Auto) Baso % (Auto) Neut # (Auto) Lymph # (Auto) Mineral # (Auto) Eos # (Auto) Baso # (Auto) Immature Gran # (Auto) Sodium Potassium Chloride Carbon Dioxide Anion Gap BUN Creatinine Est Cr Clr Drug Dosing Est GFR ( Amer) Est GFR (Non-Af Amer) BUN/Creatinine Ratio Glucose Fasting Glucose Estimat Average Glucose Hemoglobin A1c Calcium Total Bilirubin AST ALT Alkaline Phosphatase Total Protein Albumin Globulin Albumin/Globulin Ratio Triglycerides Cholesterol LDL Cholesterol, Calc VLDL Cholesterol, Calc HDL Cholesterol Cholesterol/HDL Ratio TSH 1.376 Urine Color Urine Appearance Urine pH Ur Specific [place] Urine Protein Urine Glucose (UA) Urine Ketones Urine Blood Urine Nitrite Urine Bilirubin Urine Urobilinogen Ur Leukocyte Esterase Urine WBC (Auto) Urine RBC (Auto) U Hyaline Cast (Auto) U Epithel Cells (Auto) Urine Bacteria (Auto) Salicylates < 3.0 L Urine Opiates Screen Ur Methadone, Qual Acetaminophen < 3 L Urine Barbiturates Ur Phencyclidine (PCP) U Amphetamin/Meth Scrn MDMA (Ecstasy) Screen U OH-Alprazolam Confrm U Benzodiazepines Scrn 7-Amino Clonazepam Ur Nordiazepam Confirm U OH-ethylflurazepam U Lorazepam Cnf GC/MS U Oxazepam Confm GC/MS Ur Temazepam Confirm U OH-Triazolam Confirm U OH-Midazolam Confirm Ur Cocaine Metabolite U Marijuana (THC) Screen U Marijuana THC Carboxy Drug Screen Comment Ethyl Alcohol mg/dL < 10.0 SARS-CoV-2, RNA, NAAT 01/02/23 01/02/23 07:09 07:09 WBC RBC Hgb Hct MCV MCH MCHC RDW Std Deviation RDW Coeff of [place] Plt Count MPV Immature Gran % (Auto) Neut % (Auto) Lymph % (Auto) Mineral % (Auto) Eos % (Auto) Baso % (Auto) Neut # (Auto) Lymph # (Auto) Mineral # (Auto) Eos # (Auto) Baso # (Auto) Immature Gran # (Auto) Sodium Potassium Chloride Carbon Dioxide Anion Gap BUN Creatinine Est Cr Clr Drug Dosing Est GFR ( Amer) Est GFR (Non-Af Amer) BUN/Creatinine Ratio Glucose Fasting Glucose 106 H Estimat Average Glucose 120 Hemoglobin A1c 5.8 H Calcium Total Bilirubin AST ALT Alkaline Phosphatase Total Protein Albumin Globulin Albumin/Globulin Ratio Triglycerides 223 H Cholesterol 244 H LDL Cholesterol, Calc 166 VLDL Cholesterol, Calc 45 H HDL Cholesterol 33 Cholesterol/HDL Ratio 7.4 H TSH Urine Color Urine Appearance Urine pH Ur Specific [place] Urine Protein Urine Glucose (UA) Urine Ketones Urine Blood Urine Nitrite Urine Bilirubin Urine Urobilinogen Ur Leukocyte Esterase Urine WBC (Auto) Urine RBC (Auto) U Hyaline Cast (Auto) U Epithel Cells (Auto) Urine Bacteria (Auto) Salicylates Urine Opiates Screen Ur Methadone, Qual Acetaminophen Urine Barbiturates Ur Phencyclidine (PCP) U Amphetamin/Meth Scrn MDMA (Ecstasy) Screen U OH-Alprazolam Confrm U Benzodiazepines Scrn 7-Amino Clonazepam Ur Nordiazepam Confirm U OH-ethylflurazepam U Lorazepam Cnf GC/MS U Oxazepam Confm GC/MS Ur Temazepam Confirm U OH-Triazolam Confirm U OH-Midazolam Confirm Ur Cocaine Metabolite U Marijuana (THC) Screen U Marijuana THC Carboxy Drug Screen Comment Ethyl Alcohol mg/dL SARS-CoV-2, RNA, NAAT Hospital Course (1) Bipolar 1 disorder, mixed, severe: (2) Alcohol use disorder: (3) Benzodiazepine misuse: (4) PTSD (post-traumatic stress disorder): Plan 01/09/2023: continue same. 01/08/2023: continue current meds and tx plan. 2nd injection of Invega on 01/10/23. 01/07/2023: tolerated 2 doses of Invega, administer loading IM. 01/06/2023: zoloft 75 mg today then titrate to 100 mg tomorrow. Transition Risperdal to Invega with plan for SPARROW. 01/05/2023: hydroxyzine scheduled hs with melatonin as both effective overnight, restart Zoloft 50 mg daily, likely transition to Invega PO tomorrow in anticipation of conversion to SPARROW, $0 copay per [facility] pharmacy. 01/04/2023: patient desires a trial of melatonin as Risperdal less sedating than Zyprexa, does desire SPARROW, need to determine coverage for SPARROW Invega. 01/03/2023: Starting metformin ER 500mg QDD tonight. Continue risperidone 0.5mg qAM and 1 mg HS. Continue AWSS with gabapentin taper. 01/02/2023: Stop olanzapine. Start risperidone 0.5mg qAM and 1 mg HS. 01/01/2023: The patient was admitted to the [facility] ([facility] inpatient mental health unit) on q15 min checks (behavioral with suicide precautions) for safety. The patient will participate in group, recreational, and milieu therapies and will be offered additional individual and family sessions as clinically appropriate. -Olanzapine 15mg HS for mood stabilization -AWSS with thiamine, folic acid, gabapentin and ativan as needed for scoring -Goal of potentially moving to SPARROW such as Invega given intermittent adherence with oral medications -Fasting lipid panel and glucose tomorrow AM Mental Health & Subst Abuse Tx Psychiatrist Name of Psychiatrist: [facility] Psychiatrist's Time of Appointment with Psychiatrist: Please call after residential treatment to establish local care. Psychiatric Appointment Comment: [address], [place] [facility] [address] Therapist Name of Therapist: [facility] Therapist's Date of Therapist Appointment: Doesn't know, does not have his phone with him Time of Therapist Appointment: Please follow up after residential treatment. Therapy Appointment Comment: [address], [address], [place] [address] Christmas Tree Contractor Name of Christmas Tree Contractor: None Post Discharge Appointments Primary Care Physician Name Of Family Doctor/PCP: [facility] Time of Appointment with PCP: Please follow up with PCP after residential sunny atment if needed. Provider Appointment Comment: [address], [address], [place] [facility] [address] Smoking Cessation Counseling Tobacco Cessation Medication Prescribed at Discharge: Offered & Pt Refused Other #1: Name of Aftercare Appointment: Dr. Stokes (psychiatry) Phone Number of Aftercare Appointment: [phone] Aftercare Appointment Comment: Please follow up after residential treatment. #2: Name of Aftercare Appointment: [facility] (Residential Treatment) Phone Number of Aftercare Appointment: [phone] Date of Aftercare Appointment: 01/10/23 Aftercare Appointment Comment: [address], [place] [address] Contact Information Discharge Discharge Address: [address], [place] [address] Discharge Plan Discharge Items Patient Disposition: Drug & Alcohol Rehab Reason For Visit: UNSPECIFIED DEPRESSION Discharge Diagnosis: bipolar disorder Activity: Resume your previous activity Non-emergency contact: Primary Care Provider, Psychiatrist and Therapist Call non-emergency contact if: you have any medication questions and your symptoms worsen Follow-up/Referrals: Eran Marcus DO [Primary Care Provider] - Diet: Regular Addtl Attending Provider Instructions: SPECIAL CARE INSTRUCTIONS: 1. Follow through with your scheduled aftercare appointments. If unable to keep an appointment, please call to reschedule. 2. Take your medication only as prescribed. Medication should not be changed or stopped without the approval of your doctor. In the event of worsening symptoms or concerns about side effects, contact your doctor immediately. 3. Utilize new healthy coping skills, anger management skills, and stress management skills learned during your hospitalization. Journal feelings and process them with a support person. Identify stressors or situations that may result in relapse, deterioration or inappropriate behaviors and develop a plan to deal with those issues. 4. If your coping skills are ineffective and you are in crisis, contact your outpatient providers for direction. If unable to reach your providers, please call the [facility] CRISIS LINE AT , go to the [facility] walk-in center at [address], [address], [place], or go to the closest Emergency Room. 5. Avoid alcohol and un-prescribed drugs. 6. You have been provided with the Mental Health Advance Directives Pamphlet for your review. 7. Your condition is stable for discharge to outpatient level of care, but recovery is an ongoing process. Ifthoughts to harm yourself or others return, follow the safety plan developed during your stay. Planning for a safe return home includes securing weapons. Our treatment team recommends weaponsbe removed from the home until your outpatient provider reassesses your progress. In rare cases where the items themselvescannot be removed, guns and ammunitionshould be secured separatelyand keys stored by a reliable personoutside of the home. If you were admitted on an involuntary commitment, the police or other legal authorities may be involved in this process. AFTERCARE APPOINTMENTS: * Please call your insurance company prior to your scheduled appointment to confirm your aftercare providers are covered. Take your insurance information to your appointments. WHO TO CALL AND WHEN: Medical Emergencies: For questions or emergencies related to your hospital stay, please contact the Inpatient Behavioral Health Unit at [phone]. A social worker psychiatric is on-call 10/02 for the Behavioral Health Unit for emergencies At any time you feel your situation is an emergency, you may also call 911 immediately. Pending Studies at Discharge: No Stand-Alone Forms: My [facility] Skilled Items Patient informed of condition?: Yes DNR: No Discharge Level of Care: Other Communicable Disease: No Discharge Prognosis: Improving Lines: None Urinary Catheter: No Medications and DC Order Prescriptions: New sertraline 100 mg Tablet 100 mg PO QAM Qty: 30 0RF melatonin 3 mg Tablet 3 mg PO HS Qty: 30 0RF metformin 500 mg Tablet Extended Release 24 Hr 500 mg PO QDD Qty: 30 0RF paliperidone palmitate 117 mg/0.75 mL syringe 117 mg IM Q30D Qty: 0.75 0RF Rx Instructions: will be due within 30 days of 01/10/2023, not sent to pharmacy, can go receive via [facility] with $0 copay. Continued atorvastatin 10 mg tablet 10 mg PO DAILY Qty: 30 2RF Discontinued clonazepam 1 mg tablet See Rx Instructions .ROUTE .COMPLEX Rx Instructions: 1 mg po daily and 1mg po daily prn anxiety Vraylar 1.5 mg capsule 1.5 mg PO DAILY Discharge Orders: Discharge Order (Routine); Ordered 01/10/23 Ordered By: Zandra Nassar Admission Data Admit Date/Time: 12/31/22 22:08 Attending Provider: Zandra Nassar Admit Provider: Jamaica Villanueva Primary Care Provider: Eran Marcus Other Interventions: PSY Interdisciplinary Discharge Planning Last Done: 01/10/23 11:36 Coding Level of Care Code 12129 D/C day mgmt > 30 min Diagnoses Bipolar 1 disorder, mixed, severe F31.63 Alcohol use disorder F10.90 Benzodiazepine misuse F13.90 PTSD (post-traumatic stress disorder) F43.10
== END 2023-01-10 14:15 | disposition alcohol treatment (31) | DRG 885 ==
LOC: ED 17:12 → SUATTDRO 22:08 → 3S 22:08